=== PATIENT | female | born 1955 | race Caucasian/White ===

== ENCOUNTER 2023-02-24 09:19 | Outpatient (OUT) | payer MEDICARE, SELFPAY ==
--- NOTE | 2023-02-24 09:44 | CT_ITS ---
[address] [address] Patient Name: NAWAF MCKEON MRN: [facility]:[id number] date: 1955 Sex: F Assigned Patient Location: CT Current Patient Location: LAB Accession/Order Number: [id number] Exam Date: 02/24/2023 09:35 Report Date: 02/24/2023 10:28 At the request of: DOUGLAS FOOTE Procedure: CT lung screening low-dose EXAMINATION: CT lung screening low-dose HISTORY: History Of Tobacco Dependence Z87.891 COMPARISON: No relevant comparison available. TECHNIQUE: Axial, Coronal, and Sagittal images were created without the administration of IV contrast material. Dose reduction techniques were achieved by using automated exposure control and/or adjustment of mA and/or kV according to patient size and/or use of iterative reconstruction technique. FINDINGS: LUNGS: Calcified tracheobronchial tree. Scattered patchy and linear opacities likely atelectasis and/or scar. There is ill-defined solid and semisolid nodule in the anterior aspect of the right lower lobe axial image 122 measuring 7 x 5 mm. PLEURA: No mass, effusion, or pneumothorax. VASCULATURE: No abnormality. LINA: Calcified right hilar lymph nodes MEDIASTINUM: Small calcified subcarinal lymph nodes CARDIAC: No enlargement, pericardial thickening, or significant calcification. AORTA: No aortic aneurysm. Atherosclerosis. CHEST WALL: No mass or axillary adenopathy BONES: No bone lesion or fracture. LIMITED ABDOMEN: No suspicious findings. Limited images of the upper abdomen. OTHER: Negative. IMPRESSION: Mixed solid and semisolid 7 x 5 mm right lower lobe nodule. Six-month follow-up recommended to document stability LUNG SCREENING: Lung-RADS Category 3- Probably benign. Probably benign finding(s)- short term follow up suggested; includes nodules with a low likelihood of becoming a clinically active cancer. Six month LDCT. Electronically authenticated by: HAROON BURKETT Date: 02/24/2023 10:28
== END 2023-02-24 09:20 | disposition home or self-care (01) ==
LOC: CT 09:19
PROVIDERS: PCP Family Medicine; Visit Provider Family Medicine
DX: Z87.891 Personal history of nicotine dependence (principal); R91.1 Solitary pulmonary nodule
CPT/HCPCS: 71271

== ENCOUNTER 2023-02-24 10:10 | Outpatient (OUT) | payer MEDICARE, SELFPAY ==
[2023-02-24 10:29] LABS: Basophils Absolute Auto 0.1 10^3/uL (0.0-0.1); Basophils Percent Auto 0.6 % (0.2-2.0); Eosinophils Absolute Auto 0.4 10^3/uL (0.0-0.7); Eosinophils Percent Auto 4.7 % (0.9-7.0); Hematocrit 44.3 % (36.0-48.0); Hemoglobin 14.5 g/dL (12.0-16.0); Immature Granulocytes Abs Auto 0.03 10^3/uL (0.00-0.03); Immature Granulocytes Pct Auto 0.3 % (0.0-0.5); Lymphocytes Percent Auto 22.9 % (20.5-60.0); Mean Corpuscular HGB Conc 32.7 g/dL (29.9-35.2); Mean Corpuscular Volume 91.7 fL (81.0-99.0); Mean Platelet Volume 9.2 fL (9.5-13.5); Monocytes Absolute Auto 0.5 10^3/uL (0.3-0.8); Monocytes Percent Auto 5.4 % (1.7-12.0); Neutrophils Absolute Auto 5.8 10^3/uL (1.4-6.5); Neutrophils Percent Auto 66.1 % (43.0-75.0); Platelet Count 250 10^3/uL (150-450); Red Blood Count 4.83 10^6/uL (4.20-5.40); Red Cell Distribution Width 13.3 % (11.0-15.0); White Blood Count 8.7 10^3/uL (4.0-11.0)
[2023-02-24 11:14] LABS: Alanine Aminotransferase 23 U/L (14-59); Albumin Globulin Ratio 0.9; Albumin Level 3.7 g/dL (3.4-5.0); Alkaline Phosphatase 67 U/L (46-116); Anion Gap 11.2; Aspartate Amino Transferase 15 U/L (15-37); BUN Creatinine Ratio 15.8; Bilirubin Direct 0.1 mg/dL (0.0-0.2); Bilirubin Total 0.4 mg/dL (0.2-1.0); Calcium 9.5 mg/dL (8.5-10.1); Chloride 106 mmol/L (98-107); Chol HDL Ratio 3.7; Cholesterol 216 mg/dL (<=200); Estimated GFR (African America >60 (>=60); Estimated GFR (Non-African Ame >60 (>=60); Globulin 4.1 g/dL; Glucose 73 mg/dL (74-106); HDL Cholesterol 58 mg/dL (40-60); Potassium 4.2 mmol/L (3.5-5.1); Sodium 142 mmol/L (136-145); Total Protein 7.8 g/dL (6.4-8.2); Triglycerides 141 mg/dL (<=150); VLDL CHOLESTEROL 28.2 mg/dL
== END 2023-02-24 10:11 | disposition home or self-care (01) ==
LOC: LAB 10:13
PROVIDERS: PCP Family Medicine; Visit Provider Family Medicine
DX: Z13.220 Encounter for screening for lipoid disorders (principal); Z79.899 Other long term (current) drug therapy; M81.0 Age-related osteoporosis without current pathological fracture
CPT/HCPCS: 36415; 80048; 80061; 80076; 82306; 85025

== ENCOUNTER 2023-04-26 20:27 | Outpatient (REF) | payer MEDICARE, SELFPAY ==
[2023-05-03 09:11] LABS: Age Gdln ACOG Testing Note (.); HPV Aptima Negative (Negative); IGP, Aptima HPV, rfx 16/18,45 Note (.)
== END 2023-04-26 20:28 | disposition home or self-care (01) ==
LOC: LAB 20:27
PROVIDERS: PCP Family Medicine; Visit Provider Obstetrics & Gynecology
DX: Z12.4 Encounter for screening for malignant neoplasm of cervix (principal)
CPT/HCPCS: 87624; G0145

== ENCOUNTER 2023-05-11 09:52 | Outpatient (OUT) | payer MEDICARE, SELFPAY ==
--- NOTE | 2023-05-11 09:57 | MM_ITS ---
Patient: NAWAF MCKEON Exam Date: 05/11/2023 : 1955 Gender:F Ordering : DR Everett Boothe . Admission #: [id number] Family : DR Joe Gaspar . Order #: [id number] CLICK HERE TO VIEW EXAM RADIOLOGY REPORT PROCEDURE: MM TOMOSYNTHESIS SCREENING BI COMPARISON: MG MAMM SCREEN 3D GLADYS CAD, 05/10/2022. MG MAMM SCREEN 3D GLADYS CAD, 03/30/2021. MG MAMM SCREEN GLADYS W CAD, 09/14/2018. MG MAMM SCREEN GLADYS W CAD, 08/17/2010. INDICATIONS: Screening mammogram Z12.31 Calculator Name NCI Breast Cancer Risk Assessment Tool 5 Year Breast Cancer Risk 2.30% Lifetime Breast Cancer Risk 8.60% Personal Breast Cancer No Personal Ovarian Cancer No Treatments None Family Cancers Mother with thyroid cancer at age 65. LOCATION: [facility] BREAST COMPOSITION: Heterogeneously dense,which may obscure small masses. FINDINGS: DIAGNOSTIC CATEGORY 2--BENIGN FINDING: RIGHT BREAST: No significant suspicious finding. Scattered benign-appearing calcifications are present. No significant change has occurred. LEFT BREAST: No significant suspicious finding. Scattered benign-appearing calcifications are present. Scattered benign-appearing nodules are present. No significant change has occurred. RECOMMENDATIONS: ROUTINE MAMMOGRAM AND CLINICAL EVALUATION IN 12 MONTHS. PLEASE NOTE: A NORMAL MAMMOGRAM DOES NOT EXCLUDE THE POSSIBILITY OF BREAST CANCER. A CLINICALLY SUSPICIOUS PALPABLE LUMP SHOULD BE BIOPSIED. Dictated by: Al Salinas M.D. on 05/11/2023 at 15:46 Approved by: Al Salinas M.D. on 05/11/2023 at 15:48
--- NOTE | 2023-05-11 09:57 | XR_ITS ---
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 TECHNIQUE: Dual-energy X-ray absorptiometry (DXA) was performed. FINDINGS: SPINE ANALYSIS: Average bone mineral density is 1.104 g/cm2. T-score (standard deviation relative to young adult mean): -0.8 . +4.1% change since prior study. HIP ANALYSIS: Lowest bone mineral density is within the right femoral trochanter, 0.6-1 g/cm2. T-score (standard deviation relative to young adult mean): -2.0 . +11.4% change since prior study. XR/XR DEXA axial skeleton IMPRESSION: World Kenny Organization Classification: Osteopenia - Moderate Fracture Risk Electronically authenticated by: EDMUNDO FALLON Date: 05/11/2023 11:46
== END 2023-05-11 09:53 | disposition home or self-care (01) ==
LOC: MAMMO 09:52
PROVIDERS: PCP Family Medicine; Visit Provider Obstetrics & Gynecology
DX: Z12.31 Encounter for screening mammogram for malignant neoplasm of breast (principal); Z78.0 Asymptomatic menopausal state; M81.0 Age-related osteoporosis without current pathological fracture; Z80.8 Family history of malignant neoplasm of other organs or systems; M85.80 Other specified disorders of bone density and structure, unspecified site
CPT/HCPCS: 77063; 77067; 77080

== ENCOUNTER 2023-08-09 12:49 | Outpatient (OUT) | payer MEDICARE, SELFPAY ==
--- NOTE | 2023-08-09 12:52 | CT_ITS ---
The [address] [address] Patient Name: NAWAF MCKEON MRN: [facility]:[id number] date: 1955 Sex: F Assigned Patient Location: CT Current Patient Location: CT Accession/Order Number: [id number] Exam Date: 08/09/2023 13:07 Report Date: 08/09/2023 15:55 At the request of: DOUGLAS FOOTE Procedure: CT chest wo con EXAM: CT chest wo con HISTORY: Lung Nodule R91.1 COMPARISON: 02/24/2023. TECHNIQUE: Axial, Coronal, and Sagittal images were created without the administration of IV contrast material. Dose reduction techniques were achieved by using automated exposure control and/or adjustment of mA and/or kV according to patient size and/or use of iterative reconstruction technique. FINDINGS: LUNGS: Interval resolution in the focal nodular density in the anterior right lower lobe, compatible with infectious/inflammatory etiology. Mild cylindrical bronchiectasis is seen in the mid and lower lobes. There is moderate centrilobular emphysema. Scattered patchy and linear opacities likely atelectasis and/or scar. PLEURA: No mass, effusion, or pneumothorax. VASCULATURE: No abnormality. LINA: Calcified right hilar lymph nodes. No pathologic lymphadenopathy by size criteria. MEDIASTINUM: Small calcified subcarinal lymph nodes. No pathologic lymphadenopathy by size criteria. CARDIAC: No enlargement, pericardial thickening, or significant calcification. AORTA: No aortic aneurysm. Atherosclerosis. CHEST WALL: No mass or axillary adenopathy BONES: No bone lesion or fracture. UPPER ABDOMEN: Limited. CT/CT chest wo con IMPRESSION: Resolved right lower lobe nodule, infectious/inflammatory Electronically authenticated by: RENEE FRENCH Date: 08/09/2023 15:55
== END 2023-08-09 12:50 | disposition home or self-care (01) ==
LOC: CT 12:49
PROVIDERS: PCP Family Medicine; Visit Provider Family Medicine
DX: R91.1 Solitary pulmonary nodule (principal)
CPT/HCPCS: 71250

== ENCOUNTER 2023-11-10 12:55 | Outpatient (OUT) | payer MEDICARE, SELFPAY ==
--- NOTE | 2023-11-10 13:00 | RT_ITS ---
[facility] Test Date: 2023-11-10 Pat Name: NAWAF MCKEON Department: Room: - Gender: Female Repairer General: Ese [place] RRT : 1955 Requested By: [id number] Order Number: [id number] Reading MD: Alfonso Novoa Interpretive Statements Pulmonary function testing was completed according to ATS criteria. Findings were considered accurate and reproducible. Both pre- and post-bronchodilator values utilized for spirometry. Spirometry (based on pre-bronchodilator values): -FEV1/FVC: Reduced @ 61% -FEV1: Moderately reduced @ 75% -FVC: Normal @ 94% -There is a positive bronchodilator response in FEV1. Lung volumes by plethysmography (based on pre-bronchodilator values): -RV: Normal @ 106% -TLC: Normal @ 116% Diffusion capacity: -DLCO: Mild reduction @ 78% when corrected for Hb 14.4g/dL Flow-volume loop: -Mild-moderate obstructive pattern Impressions: -Spirometry suggests moderate obstruction. There is a positive bronchodilator response. Lung volumes are normal. There is a mildly reduced diffusion capacity. This pattern can be seen in asthma-COPD overlap or COPD with a bronchodilator response. Clinical correlation required. Electronically Signed On 11-14-2023 16:39:28 EDT by Alfonso Novoa
--- OUTSIDE RECORDS SUMMARY | 2023-11-10 13:02 | XMS_ITS | CCD ---
Author Name Unknown Address [facility] [employer] [facility] [address] [place] [address] Organization [facility] Care Team Providers Care Claims Associate Name Role Phone TAVIA ., DR FORD Attending Unavailable TAVIA ., DR FORD Consulting Unavailable TAVIA ., DR FORD Admitting Unavailable NADERER, DR JOE Ramirez Primary Care Unavailable AICHHOLZ, DENTAL HYGIENE INSTRUCTOR ANTONIO Attending Unavailable AICHHOLZ, DENTAL HYGIENE INSTRUCTOR ANTONIO Consulting Unavailable AICHHOLZ, CARLITOS ANTONIO Admitting Unavailable NADERER, DR JOE Ramirez Primary Care Unavailable Gigi Curry Consulting Unavailable ZIEBER, DR EDMUNDO Soto Consulting Unavailable NADERER, DR JOE Ramirez Primary Care Unavailable NADERER, DR JOE Ramirez Admitting Unavailable NADERER, DR JOE Ramirez Attending Unavailable NADERER, DR JOE Ramirez Consulting Unavailable NADERER, DR JOE Ramirez Primary Care Unavailable NADERER, DR JOE Ramirez Admitting Unavailable NADERER, DR JOE Ramirez Attending Unavailable NADERER, DR JOE Ramirez Consulting Unavailable TAVIA ., DR FORD Attending Unavailable TAVIA ., DR FORD Admitting Unavailable NADERER, DR JOE Ramirez Primary Care Unavailable SMITHTON, DR HAROON Catalan Consulting Unavailable TAVIA ., DR FORD Consulting Unavailable ZIEBER, DR EDMUNDO Soto Consulting Unavailable Joe Foote MD Primary Care Provider SHAIKH CHRISTIANSEN Attending Unavailable Medications Current Medications Medication Drug Class(es) Dates Sig (Normalized) Sig (Original) [id number] 200 actuat albuterol 0.09 mg/actuat metered dose inhaler (2 sources) beta2-Adrenergic Agonist Start: 01-31-2023 End: 10-26-2023 take 2 puff(s) by inhalation every six hours as needed for wheezing albuterol (PROVENTIL HFA;VENTOLIN HFA) 90 mcg/actuation inhaler Indications: Cough, unspecified type Inhale 2 puffs every 6 (six) hours as needed for wheezing or shortness of breath. 18 g 3 10/26/2023 Active calcium citrate 950 mg / cholecalciferol 250 unt oral tablet (1 source) Vitamin D take 1 tablet by mouth once daily as needed calcium citrate-vitamin D3 (CITRACAL PETITES) 200 mg calcium -250 units tablet Take 1 tablet by mouth daily as needed. 0 Active dicyclomine hydrochloride 20 mg oral tablet (1 source) Anticholinergic Start: 08-17-2021 take 1 tablet by mouth every six hours as needed dicyclomine (BENTYL) 20 mg tablet Take 1 tablet (20 mg total) by mouth every 6 (six) hours as needed (abdominal pain). 90 tablet 3 08/17/2021 Active esomeprazole 20 mg delayed release oral capsule (1 source) Proton Pump Inhibitor Start: 01-13-2023 take 1 capsule by mouth once daily before breakfast esomeprazole (NexIUM) 20 mg capsule Take 1 capsule (20 mg total) by mouth every morning before breakfast. 180 capsule 1 01/13/2023 Active melatonin 10 mg oral tablet (1 source) take 1 tablet by mouth once daily as needed melatonin 10 mg tablet Take 10 mg by mouth nightly as needed. 0 Active ondansetron 4 mg disintegrating oral tablet (1 source) Serotonin-3 Receptor Antagonist Start: 12-17-2020 take 1 tablet by mouth every eight hours as needed for nausea and vomiting ondansetron ODT (ZOFRAN ODT) 4 mg disintegrating tablet Dissolve 1 tablet (4 mg total) on tongue every 8 (eight) hours as needed for nausea or vomiting. 20 tablet 0 12/17/2020 Active Problems Active Problems Problem Classification Problem Date Documented Da te Episodic/Chronic Osteoporosis (1 source) Age-related osteoporosis without current pathological fracture; Translations: [AGE-REL OSTEOPOR W/O CURR PATH FX] Onset: 05-14-2022 Chronic Other lower respiratory disease (1 source) Cough; Translations: [Cough, unspecified type] 10-26-2023 Episodic Unclassified (3 sources) COUGH, UNSPECIFIED; Translations: [COUGH, UNSPECIFIED] Onset: 12-21-2022 Past or Other Problems Problem Classification Problem Date Documented Date Episodic/Chronic Immunizations and screening for infectious disease (1 source) Encounter for screening for human papillomavirus (HPV); Translations: [ENC SCREENING HUMAN PAPILLOMAVIRUS] Onset: 04-19-2022 Episodic Other lower respiratory disease (4 sources) Shortness of breath; Translations: [SHORTNESS OF BREATH] Onset: 06-08-2022 Episodic Other screening for suspected conditions (not mental disorders or infectious disease) (8 sources) Encounter for screening mammogram for malignant neoplasm of breast; Translations: [Encounter for screening for malignant neoplasm of cervix] Onset: 04-18-2022 Episodic Residual codes; unclassified (1 source) Asymptomatic menopausal state; Translations: [ASYMPTOMATIC MENOPAUSAL STATE] Onset: 05-14-2022 Episodic Residual codes; unclassified (1 source) Family history of malignant neoplasm of other organs or systems; Translations: [FAM HX MALIG NEOPLASM OTH ORGN/SYS] Onset: 05-14-2022 Episodic Unclassified (1 source) COUGH, UNSPECIFIED; Translations: [COUGH, UNSPECIFIED] Onset: 12-01-2022 Results Test Name Value Interpretation Reference Range Facility XR CHEST 2 Von 12-01-2022 XR CHEST 2 V EXAM: XR CHEST 2 V HISTORY: Cough COMPARISON: 06/08/2022 TECHNIQUE: PA and lateral views of the chest. FINDINGS: The cardiomediastinal silhouette is normal. No focal consolidation is identified. There is no pneumothorax. No pleural effusion is noted. The osseous structures are intact. IMPRESSION: No acute cardiopulmonary process. Electronically authenticated by: GIGI CURRY Date: 2022-12-01 12:17 Normal [facility] XR CHEST 2 Von 06-08-2022 XR CHEST 2 V EXAMINATION: XR CHES T 2 V HISTORY: Dyspnea , acute cough, chest congestion COMPARISON: No relevant comparison available. FINDINGS: LUNGS: Well expanded lungs with trace amount stranding within lung bases. VASCULATURE: No increased pulmonary vasculature. PLEURA: No pneumothorax, effusion, or pleural thickening. CARDIAC: No cardiomegaly or cardiac silhouette abnormality. MEDIASTINUM: No visible mass or adenopathy. BONES: No fracture or visible bone lesion. OTHER: Negative. IMPRESSION: 1. Trace amount of bibasilar atelectasis versus infiltrates. Electronically authenticated by: EDMUNDO FALLON Date: 2022-06-08 12:[address] [facility] CBC AUTO DIFFon 09-27-2022 BASO # 0.0 103/ul Normal 0.0-0.1 [facility] Comment on above: Performed By: #### L IVER, LIPID, TSH, BMP #### [facility] [address] [place] [address] Dr. Minesh Wallace Basophils/100 WBC (Bld) 0.7 % Normal 0.2-2.0 [facility] Comment on above: Performed By: #### L IVER, LIPID, TSH, BMP #### [facility] [address] [place] [address] Dr. Minesh Wallace EO # 0.3 103/ul Normal 0.0-0.7 [facility] Comment on above: Performed By: #### L IVER, LIPID, TSH, BMP #### [facility] [address] [place] [address] Dr. Minesh Wallace Eosinophils/100 WBC (Bld) 4.2 % Normal 0.9-7.[address] [facility] Comment on above: Performed By: #### L IVER, LIPID, TSH, BMP #### [facility] [address] [place] [address] Dr. Minesh Wallace Erythrocyte distribution width (RBC) [Ratio] 13.2 % Normal 11.0-15.[address] [facility] Comment on above: Performed By: #### L IVER, LIPID, TSH, BMP #### [facility] [address] [place] [address] Dr. Minesh Wallace Hematocrit (Bld) [Volume fraction] 43.2 % Normal 36.0-48.[address] [facility] Comment on above: Performed By: #### L IVER, LIPID, TSH, BMP #### [facility] [address] [place] [address] Dr. Minesh Wallace Hemoglobin (Bld) [Mass/Vol] 14.0 g/dL Normal 12.0-16.[address] [facility] Comment on above: Performed By: #### L IVER, LIPID, TSH, BMP #### [facility] [address] [place] [address] Dr. Minesh Wallace IG # 0.01 10e3/ul Normal 0.00-0.[address] [facility] Comment on above: Performed By: #### L IVER, LIPID, TSH, BMP #### [facility] [address] [place] [address] Dr. Minesh Wallace IG % 0.2 % Normal 0.0-0.[address] [facility] Comment on above: Performed By: #### L IVER, LIPID, TSH, BMP #### [facility] [address] [place] [address] Dr. Minesh Wallace LYMPH # 2.4 103/ul Normal 1.2-3.8 [facility] Comment on above: Performed By: #### L IVER, LIPID, TSH, BMP #### [facility] [address] [place] [address] Dr. Minesh Wallace Lymphocytes/100 WBC (Bld) 39.7 % Normal 20.5-60.[address] [facility] Comment on above: Performed By: #### L IVER, LIPID, TSH, BMP #### [facility] [address] [place] [address] Dr. Minesh Wallace MANUAL DIFF REQ NO Normal [facility] Comment on above: Performed By: #### L IVER, LIPID, TSH, BMP #### [facility] [address] [place] [address] Dr. Minesh Wallace MCH (RBC) [Entitic mass] 29.9 pg Normal 26.7-34.[address] [facility] Comment on above: Performed By: #### L IVER, LIPID, TSH, BMP #### [facility] [address] [place] [address] Dr. Minesh Wallace MCHC (RBC) [Mass/Vol] 32.4 g/dL Normal 29.9-35.2 [facility] Comment on above: Performed By: #### L IVER, LIPID, TSH, BMP #### [facility] [address] [place] [address] Dr. Minesh Wallace MCV (RBC) [Entitic vol] 92.1 fL Normal 81.0-99.[address] [facility] Comment on above: Performed By: #### L IVER, LIPID, TSH, BMP #### [facility] [address] [place] [address] Dr. Minesh Wallace MONO # 0.4 103/ul Normal 0.3-0.[address] [facility] Comment on above: Performed By: #### L IVER, LIPID, TSH, BMP #### [facility] [address] [place] [address] Dr. Minesh Wallace Monocytes/100 WBC (Bld) 6.9 % Normal 1.7-12.[address] [facility] Comment on above: Performed By: #### L IVER, LIPID, TSH, BMP #### [facility] [address] [place] [address] Dr. Minesh Wallace NEUT # 2.9 103/ul Normal 1.4-6.[address] [facility] Comment on above: Performed By: #### L IVER, LIPID, TSH, BMP #### [facility] [address] [place] [address] Dr. Minesh Wallace Neutrophils/100 WBC (Bld) 48.3 % Normal 43.0-75.0 [facility] Comment on above: Performed By: #### L IVER, LIPID, TSH, BMP #### [facility] [address] [place] [address] Dr. Minesh Wallace Platelet mean volume (Bld) [Entitic vol] 10.2 fL Normal 9.5-13.[address] [facility] Comment on above: Performed By: #### L IVER, LIPID, TSH, BMP #### [facility] [address] [place] [address] Dr. Minesh Wallace PLT 294 103/ul Normal 150-450 [facility] Comment on above: Performed By: #### L IVER, LIPID, TSH, BMP #### [facility] [address] [place] [address] Dr. Minesh Wallace RBC 4.69 106/ul Normal 4.20-5.[address] [facility] Comment on above: Performed By: #### L IVER, LIPID, TSH, BMP #### [facility] [address] [place] [address] Dr. Minesh Wallace WBC 5.9 103/ul Normal 4.0-11.[address] [facility] Comment on above: Performed By: #### L IVER, LIPID, TSH, BMP #### [facility] [address] [address] [address] Minesh Wallace GLYCOHEMOGLOBIN A1Con 2021 ADA RECOMMENDATION SEE BELOW Normal [facility] Comment on above: Result Comment: ADA RECOMMENDED LIMIT 4.0 - 6.0 ADA THERAPEUTIC TARGET < 7.0 ACTION SUGGESTED > 7.0 Performed By: #### A 1C #### [facility] [address] [address] [address] Minesh Wallace Glucose [Mass/Vol] 111 mg/dL Normal [facility] Comment on above: Performed By: #### A 1C #### [facility] [address] [place] [address] Dr. Minesh Wallace HbA1c (Bld) [Mass fraction] 5.5 % Normal 4.5-6.[address] [facility] Comment on above: Performed By: #### A 1C #### [facility] [address] [place] [address] Dr. Minesh Wallace LIPID PROFILEon 05-24-2022 CHOL-HDL RATIO NORM SEE BELOW Normal [facility] Comment on above: Result Comment: 3.3 - 4.4 LOW RISK 4.4 - 7.1 AVERAGE RISK 7.1 - 11.0 MODERATE RISK >11.0 HIGH RISK Performed By: #### L IVER, LIPID, TSH, BMP #### [facility] [address] [place] [address] Dr. Minesh Wallace Cholesterol [Mass/Vol] 189 mg/dL Normal <=[address] [facility] Comment on above: Performed By: #### L IVER, LIPID, TSH, BMP #### [facility] [address] [address] [address] Minesh Wallace Cholesterol in HDL [Mass/Vol] 55 mg/dL Normal 40-[address] [facility] Comment on above: Performed By: #### L IVER, LIPID, TSH, BMP #### [facility] [address] [address] [address] Minesh Wallace Cholesterol in LDL [Mass/Vol] 112.2 mg/dL Normal [facility] Comment on above: Performed By: #### L IVER, LIPID, TSH, BMP #### [facility] [address] [place] [address] Dr. Minesh Wallace Cholesterol.total/Ch olesterol in HDL [Mass ratio] 3.4 {ratio} Normal [facility] Comment on above: Performed By: #### L IVER, LIPID, TSH, BMP #### [facility] [address] [address] [address] Minesh Wallace HDL NORMAL > or = 60 mg/dl - LO W CARDIOVASCULAR RISK <40 mg/dl - HIGH CARDIOVASCULAR RISK Normal [facility] Comment on above: Performed By: #### L IVER, LIPID, TSH, BMP #### [facility] [address] [place] [address] Dr. Minesh Wallace LDL CALC NORMAL SEE BELOW Normal [facility] Comment on above: Result Comment: <100 mg/dl OPTIMAL 100 - 129 mg/dl NEAR OR ABOVE OPTIMAL 130 - 159 mg/dl BORDERLINE HIGH 160 - 189 mg/dl HIGH >190 mg/dl VERY HIGH Performed By: #### L IVER, LIPID, TSH, BMP #### [facility] [address] [place] [address] Dr. Minesh Wallace Triglyceride [Mass/Vol] 109 mg/dL Normal <=[address] [facility] Comment on above: Performed By: #### L IVER, LIPID, TSH, BMP #### [facility] [address] [place] [address] Dr. Minesh Wallace VLDL CALC 21.8 mg/dL Normal [facility] Comment on above: Performed By: #### L IVER, LIPID, TSH, BMP #### [facility] [address] [address] [address] Minesh Wallace LIVER PROFILEon 05-24-2022 Albumin [Mass/Vol] 3.8 g/dL Normal 3.4-5.0 [facility] Comment on above: Performed By: #### L IVER, LIPID, TSH, BMP #### [facility] [address] [address] [address] Minesh Wallace Albumin/Globulin [Mass ratio] 1.1 {ratio} Normal [facility] Comment on above: Performed By: #### L IVER, LIPID, TSH, BMP #### [facility] [address] [address] [address] Minesh Wallace ALP [Catalytic activity/Vol] 86 U/L Normal 46-116 [facility] Comment on above: Performed By: #### L IVER, LIPID, TSH, BMP #### [facility] [address] [address] [address] Minesh Wallace ALT [Catalytic activity/Vol] 24 U/L Normal 14-[address] [facility] Comment on above: Performed By: #### L IVER, LIPID, TSH, BMP #### [facility] [address] [place] [address] Dr. Minesh Wallace AST [Catalytic activity/Vol] 15 U/L Normal 15-[address] [facility] Comment on above: Performed By: #### L IVER, LIPID, TSH, BMP #### [facility] [address] [address] [address] Minesh Wallace BILI, CONJUGATED 0.1 mg/dL Normal 0.0-0.2 [facility] Comment on above: Performed By: #### L IVER, LIPID, TSH, BMP #### [facility] [address] [address] [address] Minesh Wallace Bilirubin [Mass/Vol] 0.2 mg/dL Normal 0.2-1.[address] [facility] Comment on above: Performed By: #### L IVER, LIPID, TSH, BMP #### [facility] [address] [address] [address] Minesh Wallace Globulin (S) [Mass/Vol] 3.4 g/dL Normal [facility] Comment on above: Performed By: #### L IVER, LIPID, TSH, BMP #### [facility] [address] [address] [address] Minesh Wallace Protein [Mass/Vol] 7.2 g/dL Normal 6.4-8.2 [facility] Comment on above: Performed By: #### L IVER, LIPID, TSH, BMP #### [facility] [address] [place] [address] Dr. Minesh Wallace PROF CHEM 8 (BAS METB)on Anion gap [Moles/Vol] 12.5 mmol/L Normal [facility] Comment on above: Performed By: #### L IVER, LIPID, TSH, BMP #### [facility] [address] [place] [address] Dr. Minesh Wallace Calcium [Mass/Vol] 9.3 mg/dL Normal 8.5-10.1 [facility] Comment on above: Performed By: #### L IVER, LIPID, TSH, BMP #### [facility] [address] [place] [address] Dr. Minesh Wallace Chloride [Moles/Vol] 104 mmol/L Normal 98-107 [facility] Comment on above: Performed By: #### L IVER, LIPID, TSH, BMP #### [facility] [address] [place] [address] Dr. Minesh Wallace CO2 [Moles/Vol] 28.9 mmol/L Normal 21.0-32.0 [facility] Comment on above: Performed By: #### L IVER, LIPID, TSH, BMP #### [facility] [address] [place] [address] Dr. Minesh Wallace Creatinine [Mass/Vol] 0.75 mg/dL Normal 0.55-1.02 [facility] Comment on above: Performed By: #### L IVER, LIPID, TSH, BMP #### [facility] [address] [place] [address] Dr. Minesh Wallace EGFR-AF ANGUILLAN >60 Normal >=60 [facility] Comment on above: Performed By: #### L IVER, LIPID, TSH, BMP #### [facility] [address] [place] [address] Dr. Minesh Wallace EGFR-NON AF ANGUILLAN >60 Normal >=60 [facility] Comment on above: Performed By: #### L IVER, LIPID, TSH, BMP #### [facility] [address] [address] [address] Minesh Wallace Glucose [Mass/Vol] 85 mg/dL Normal 74-106 [facility] Comment on above: Performed By: #### L IVER, LIPID, TSH, BMP #### [facility] [address] [place] [address] Dr. Minesh Wallace Potassium [Moles/Vol] 4.4 mmol/L Normal 3.5-5.[address] [facility] Comment on above: Performed By: #### L IVER, LIPID, TSH, BMP #### [facility] [address] [place] [address] Dr. Minesh Wallace Sodium [Moles/Vol] 141 mmol/L Normal 136-145 [facility] Comment on above: Performed By: #### L IVER, LIPID, TSH, BMP #### [facility] [address] [place] [address] Dr. Minesh Wallace Urea nitrogen [Mass/Vol] 15.0 mg/dL Normal 7.0-18.[address] [facility] Comment on above: Performed By: #### L IVER, LIPID, TSH, BMP #### [facility] [address] [place] [address] Dr. Minesh Wallace Urea nitrogen/Creatinine [Mass ratio] 20.0 mg/mg Normal [facility] Comment on above: Performed By: #### L IVER, LIPID, TSH, BMP #### [facility] [address] [place] [address] Dr. Minesh Wallace TSHon 05-24-2022 TSH 1.204 uIU/mL Normal 0.358-3.740 [facility] Comment on above: Performed By: #### L IVER, LIPID, TSH, BMP #### [facility] [address] [place] [address] Dr. Minesh Wallace MG MAMM SCREEN 3D GLADYS CADon 05-10-2022 MG MAMM SCREEN 3D GLADYS CAD Patient: DEANNA MCKEON Exam Date: 05/10/2022 : 1955 Gender:F Ordering : DR LOGAN SQUIRES . Admission #: [id number] Family : Order #: [id number] CLICK HERE TO VIEW EXAM RADIOLOGY REPORT PROCEDURE: MAMMOGRAM SCREENING 3D BILATERAL CAD COMPARISON: MG MAMM SCREEN 3D GLADYS CAD, 03/30/2021. MG MAMM SCREEN GLADYS W CAD, 09/14/2018. INDICATIONS: Screening mammography Calculator Name NCI Breast Cancer Risk Assessment Tool 5 Year Breast Cancer Risk 2.20% Lifetime Breast Cancer Risk 8.90% Personal Breast Cancer No Personal Ovarian Cancer No Treatments None Family Cancers Mother with thyroid cancer at age 65. LOCATION: [facility] BREAST COMPOSITION: Heterogeneously dense,which may obscure small masses. FINDINGS: DIAGNOSTIC CATEGORY 2--BENIGN FINDING. NO CHANGE FROM COMPARISON. Scattered benign-appearing nodules are present. Scattered benign-appearing calcifications are present. Scattered benign-appearing lymph nodes are present. RIGHT BREAST: No significant suspicious finding. LEFT BREAST: No significant suspicious finding. RECOMMENDATIONS: ROUTINE MAMMOGRAM AND CLINICAL EVALUATION IN 12 MONTHS. PLEASE NOTE: A NORMAL MAMMOGRAM DOES NOT EXCLUDE THE POSSIBILITY OF BREAST CANCER. A CLINICALLY SUSPICIOUS PALPABLE LUMP SHOULD BE BIOPSIED. Dictated by: Haroon Magallanes MD on 05/11/2022 at 07:56 Approved by: Haroon Magallanes MD on 05/11/2022 at 07:[address] [facility] XR DEXA BONE DENSITYon 05-10 XR DEXA BONE DENSITY EXAMINATION: XR DEX A BONE DENSITY, 05/10/2022 3:27 PM EDT HISTORY: Menopause present COMPARISON: None. TECHNIQUE: Dual-energy X-ray absorptiometry (DEXA) bone density study performed for the axial skeleton. FINDINGS: SPINE ANALYSIS: Average bone mineral density is 1.060 g/cm2. T-score (standard deviation relative to young adult mean): -1.2 . HIP ANALYSIS: Lowest bone mineral density is within the right femoral trochanter, 0.549 g/cm2. T-score (standard deviation relative to young adult mean): -2.6 . IMPRESSION: World [employer] Organization Classification: Osteoporosis - High Fracture Risk Electronically authenticated by: EDMUNDO FALLON Date: 2022-05-10 15:[address] [facility] PAP ACOG PANEL 2: 30 to 65on 04-24-2022 . . Normal [facility] Comment on above: Result Comment: Perf ormed at: WB Performed By: #### [id number] #### [facility] [address] [id number] Dr. Minesh Wallace Age Gdln ACOG Testing 30-[address] [facility] Comment on above: Performed By: #### [id number] #### [facility] [address] [address] [address] Minesh Wallace DIAGNOSIS: Comment Normal [facility] Comment on above: Result Comment: NEGA TIVE FOR INTRAEPITHELIAL LESION OR MALIGNANCY. CELLULAR CHANGES ASSOCIATED WITH ATROPHY ARE PRESENT. THIS SPECIMEN WAS RESCREENED PART OF OUR DIRECTOR HARDWARE PROGRAM. Performed at: WB Performed By: #### [id number] #### [facility] [address] [place] [address] Dr. Minesh Wallace HPV Aptima Negative Normal Negative [facility] Comment on above: Result Comment: This nucleic acid amplification test detects fourteen high-risk HPV types (16,18,31,33,35,39,45,51,52,56,58,59,66,68) without differentiation. Performed at: =G Performed By: #### [id number] #### [facility] [address] [place] [address] Dr. Minesh Wallace Methodology: Comment Normal [facility] Comment on above: Result Comment: This liquid based ThinPrep(R) pap test was screened with the use of an image guided system. Performed at: WB Performed By: #### [id number] #### [facility] [address] [place] [address] Dr. Minesh Wallace Note: Comment Normal [facility] Comment on above: Result Comment: The Pap smear is a screening test designed to aid in the detection of premalignant and malignant conditions of the uterine cervix. It is not a diagnostic procedure and should not be used as the sole means of detecting cervical cancer. Both false-positive and false-negative reports do occur. . Performed at: WB Performed By: #### [id number] #### [facility] [address] [place] [address] Dr. Minesh Wallace Performed by: Comment Normal [facility] Comment on above: Result Comment: Lorraine Cazares, Hatch Boss Performed at: WB Performed By: #### [id number] #### [facility] [address] [address] [address] Minesh Wallace QC reviewed by: Comment Normal [facility] Comment on above: Result Comment: Arsalan Dean, Hatch Boss Performed at: WB Performed By: #### [id number] #### [facility] [address] [address] [address] Minesh Wallace Specimen adequacy: Comment Normal [facility] Comment on above: Result Comment: Sati sfactory for evaluation. Endocervical and/or squamous metaplastic cells (endocervical component) are present. Performed at: WB Performed By: #### [id number] #### [facility] [address] [place] [address] Dr. Minesh Wallace Urine Cultureon 02-19-2021 Bacteria identified Cx Nom (U) ORGANISM: Escherichia coli (O:ESCCOL) [place] Count >100,000 Aerobic DUYEN Charge (NUC86) --- SUSCEPTIBILITY -- ORGANISM: O:ESCCOL ANTIBIOTIC INTERPRETATION DUYEN Amikacin S <16 Ampicillin S <8 Ampicillin/Sulbactam S <8/4 Aztreonam S <4 Cefazolin S <2 Cefepime S <2 Ceftazidime S <1 Ceftazidime/Avibactam S <8 Ceftriaxone S <1 Ciprofloxacin S <1 Ertapenem S <0.5 Gentamicin S <4 Levofloxacin S <2 Meropenem S <1 Nitrofurantoin S <32 Piperacillin/Tazobacta m S <16 Tetracycline S <4 Tigecycline S <2 Tobramycin S <4 Trimethoprim/Sulfameth oxazole S <2/38 S = SUSCEPTIBLE I = INTERMEDIATE R = RESISTANT BLANK = DATA NOT AVAILABLE, OR DRUG NOT ADVISABLE OR TESTED R* = RESISTANCE DUE TO EXTENDED SPECTRUM BETA-LACTAMASES ESBL = EXTENDED SPECTRUM BETA-LACTAMASE TFG = THYMIDINE-DEPENDENT STRAIN KIEL = BETA-LACTAMASE POSITIVE IB = INDUCIBLE BETA-LACTAMASE. APPEARS IN PLACE OF 'S' WITH SPECIES KNOWN TO POSSESS INDUCIBLE BETA-LACTAMASES. POTENTIALLY THEY MAY BECOME RESISTANT TO ALL B-LACTAM DRUGS. PERFORMED BY: [place] [address] PATHOLOGIST PERSONAL COMPUTER SPECIALIST ALYSSIA BURGOS M.D. Normal [facility] Comment on above: Performed By: #### C UU #### [address] Encounters Encounter Date Encounter Type Care Provider Facility Start: 10-26-2023 Orders Only Brigitte Sanford se [employer] Work Phone: [facility] Comment on above: Cough, unspecified t ype Start: 10-25-2023 End: 10-25-2023 ambulatory SHAIKH KULDIP Not Available Start: 12-01-2022 End: 12-02-2022 ambulatory CARLITOS MARTINEZ Facility:[facility] Start: 06-08-2022 End: 06-09-[address] EDMUNDO FALLON Facility:[facility] Start: 05-26-2022 Encounter for genera l adult medical examination without abnormal findings DR JOE FOOTE [facility] Start: 05-24-2022 End: 05-25-[address] JOE FOOTE Facility:[facility] Start: 05-24-2022 End: 05-25-2022 Encounter for general adult medical examination without abnormal findings DR JOE FOOTE Facility:[facility] Start: 05-10-2022 End: 05-11-[address] LOGAN SQUIRES . Facility:[facility] Start: 04-18-2022 End: 04-18-[address] LOGAN SQUIRES . Facility:[facility] Plan of Treatment Date Care Activity Detail Author Start: 04-28-2023 Influenza vaccination Influenza Vaccine [facility] Start: 2022 Fall Risk Screening Fall Risk Screening [facility] Start: 12-21-2007 Administration of varicella zoster vaccine Zoster (Shingles) Vaccine (1 of 2) [facility] Start: 1976 DTaP,Tdap and Td Vaccines (1 - Tdap) DTaP,Tdap and Td Vaccines (1 - Tdap) [facility] Start: 12-21-1975 Adult BMI Screening Adult BMI Screening [facility] Start: 1969 Depression Screening Depression Screening [facility] Start: 1969 Tobacco Screening Tobacco Screening [facility] Payers Date Payer Category Payer Unknown JOSE MARROQUIN (PPO) [id number] 2017-Present [phone] [address] [place] [address] [id number] 1959 Unknown [id number] 1959 Unknown [id number] 1957 Unknown [id number] 1957 Unknown [id number] 1957 Unknown [id number] 1957 Unknown [id number] 1957 Unknown [id number] 1957 Unknown [id number] Social History Date Type Detail Facility [facility]: [facility]06[facility] End: 08-06-2005 History of tobacco use Current smoker [facility] End: 08-06-2005 History of tobacco use Cigarette Smoker [facility] Start: 08-06-2019 End: 10-07-2020 Cigarettes smoked current (pack per day) - Reported 1 [facility] Start: 08-06-2019 Tobacco use and exposure Smokeless tobacco non-user [facility] Start: 12-18-2020 Alcohol intake Current drinke r of alcohol (finding) [facility] Start: 10-07-2020 End: 12-18-2020 Tobacco use panel [facility] Start: 08-06-2019 Alcohol Comment a couple times a [facility] Start: 1955 Sex Assigned At Not on file P [facility] Evaluation note Note Date & Type Note Facility Evaluation note Diagnosis Cough, unspecified type [facility] Inst[facility] Note Date & Type Note Facility Instructions Not on filedocumented in this en counter [facility] Summary Purpose Family History No Family History Records FoundNo Family History Records FoundNo Family History Records Found Advance Directives No Advanced Directives Records FoundNo Advanced Directives Records FoundNo Advanced Directives Records Found Additional Source Comments INFORMATION SOURCE (unrecogn ized section and content) DATE CREATED AUTHOR 03/03/2021 [facility] DATE CREATED AUTHOR AUTHOR'S ORGANIZ ATION 12/23/2022 [facility] DATE CREATED AUTHOR AUTHOR'S ORGANIZ ATION 10/28/2023 [facility] [employer] Care Teams (unrecognized sec tion and content) Claims Associate Relationship Specialty Start Date End Date Joe Foote MD [address] [place] [address] PCP - General Family Medicine 08/06/19 FOR RECORDS PERTAINING TO PATIENTS WHO ARE OR HAVE BEEN ENROLLED IN A CHEMICAL DEPENDENCY/SUBSTANCEABUSE PROGRAM, SOME INFORMATION MAY BE OMITTED. This clinical summary was aggregated from multiple sources. Caution should be exercised in using it in the provision of clinical care. This summary normalizes information from multiple sources, and as a consequence, information in this document may materially change the coding, format and clinical context of patient data. In addition, data may be omitted in some cases. CLINICAL DECISIONS SHOULD BE BASED ON THE PRIMARY CLINICAL RECORDS. [employer] provides no warranty or guarantee of the accuracy or completeness of information in this document.
[2023-11-10 13:12] LABS: Hemoglobin 14.4 g/dL (12.0-16.0)
[2023-11-10] MEDS: ALBUTEROL SULFATE 2.5 MG/3 ML VIAL NEB IH (13:56)
== END 2023-11-10 12:56 | disposition home or self-care (01) ==
LOC: CARD 12:55
PROVIDERS: PCP Family Medicine; Visit Provider Internal Medicine
DX: J43.2 Centrilobular emphysema (principal)
CPT/HCPCS: 36415; 85018; 94060; 94726; 94729

== ENCOUNTER 2024-05-06 20:22 | Outpatient (REF) | payer MEDICARE, SELFPAY ==
--- OUTSIDE RECORDS SUMMARY | 2024-05-06 20:25 | XMS_ITS | CCD ---
Author Organization [facility] Care Team Providers Care Pl Sql Developer Name Role Phone TAVIA ., DR FORD Attending Unavailable TAVIA ., DR FORD Consulting Unavailable TAVIA ., DR FORD Admitting Unavailable NADERER, DR JOE Ramirez Primary Care Unavailable AICHHOLZ, CARLITOS ALVAREZ Attending Unavailable AICHHOLZ, CARLITOS ALVAREZ Consulting Unavailable AICHHOLZ, CARLITOS MORSEA Admitting Unavailable NADERER, DR JOE Ramirez Primary Care Unavailable Jazmín, Gigi Consulting Unavailable ZIEBER, DR EDMUNDO Soto Consulting [...] NADERER, DR JOE Ramirez Primary Care Unavailable [place], DR HAROON Catalan Consulting Unavailable TAVIA ., DR FORD Consulting Unavailable ZIEBER, DR EDMUNDO Soto Consulting Unavailable Myronr Joe TOSCANO Primary Care Provider [phone] SHAIKH CHRISTIANSEN Attending Unavailable Medications Current Medications Medication Drug Class(es) Dates Sig (Normalized) Sig (Original) [id number] 200 actuat albuterol 0.09 mg/actuat metered dose [...] GIGI CURRY Date: 2022-12-01 12:17 Normal [facility] XR CHEST 2 Von 06-08-2022 XR CHEST [...] [place] Date: 2022-06-08 12:38 Normal [facility] CBC AUTO DIFFon 05-24-2022 BASO # 0.0 103/ul Normal 0.0-0.1 [facility] Comment on above: Performed By: #### L IVER, LIPID, TSH, BMP #### [facility] [address] [place] [address] Dr. Minesh Wallace Basophils/100 WBC (Bld) 0.7 % Normal 0.2-2.0 [facility] Comment on above: Performed By: #### L IVER, LIPID, TSH, BMP #### [facility] [address] [place] [address] Dr. Minesh Wallace EO # 0.3 103/ul Normal 0.0-0.7 [facility] Comment on above: Performed By: #### L IVER, LIPID, TSH, BMP #### [facility] [address] [place] [address] Dr. Minesh Wallace Eosinophils/100 WBC (Bld) 4.2 % Normal 0.9-7.0 [facility] Comment on above: Performed By: #### L IVER, LIPID, TSH, BMP #### [facility] [address] [place] [address] Dr. Minesh Wallace Erythrocyte distribution width (RBC) [Ratio] 13.2 % Normal 11.0-15.0 [facility] Comment on above: Performed By: #### L IVER, LIPID, TSH, BMP #### [facility] [address] [place] [address] Dr. Minesh Wallace Hematocrit (Bld) [Volume fraction] 43.2 % Normal 36.0-48.0 [facility] Comment on above: Performed By: #### L IVER, LIPID, TSH, BMP #### [facility] [address] [place] [address] Dr. Minesh Wallace Hemoglobin (Bld) [Mass/Vol] 14.0 g/dL Normal 12.0-16.0 [facility] Comment on above: Performed By: #### L IVER, LIPID, TSH, BMP #### [facility] [address] [place] [address] Dr. Minesh Wallace IG # 0.01 10e3/ul Normal 0.00-0.03 [facility] Comment on above: Performed By: #### L IVER, LIPID, TSH, BMP #### [facility] [address] [place] [address] Dr. Minesh Wallace IG % 0.2 % Normal 0.0-0.5 [facility] Comment on above: Performed By: #### L IVER, LIPID, TSH, BMP #### [facility] [address] [place] [address] Dr. Minesh Wallace LYMPH # 2.4 103/ul Normal 1.2-3.8 [facility] Comment on above: Performed By: #### L IVER, LIPID, TSH, BMP #### [facility] [address] [place] [address] Dr. Minesh Wallace Lymphocytes/100 WBC (Bld) 39.7 % Normal 20.5-60.0 [facility] Comment on above: Performed By: #### L IVER, LIPID, TSH, BMP #### [facility] [address] [place] [address] Dr. Minesh Wallace MANUAL DIFF REQ NO Normal [facility] Comment on above: Performed By: #### L IVER, LIPID, TSH, BMP #### [facility] [address] [place] [address] Dr. Minesh Wallace MCH (RBC) [Entitic mass] 29.9 pg Normal 26.7-34.0 [facility] Comment on above: Performed By: #### L IVER, LIPID, TSH, BMP #### [facility] [address] [place] [address] Dr. Minesh Wallace MCHC (RBC) [Mass/Vol] 32.4 g/dL Normal 29.9-35.2 [facility] Comment on above: Performed By: #### L IVER, LIPID, TSH, BMP #### [facility] [address] [place] [address] Dr. Minesh Wallace MCV (RBC) [Entitic vol] 92.1 fL Normal 81.0-99.0 [facility] Comment on above: Performed By: #### L IVER, LIPID, TSH, BMP #### [facility] [address] [place] [address] Dr. Minesh Wallace MONO # 0.4 103/ul Normal 0.3-0.8 [facility] Comment on above: Performed By: #### L IVER, LIPID, TSH, BMP #### [facility] [address] [place] [address] Dr. Minesh Wallace Monocytes/100 WBC (Bld) 6.9 % Normal 1.7-12.0 [facility] Comment on above: Performed By: #### L IVER, LIPID, TSH, BMP #### [facility] [address] [place] [address] Dr. Minesh Wallace NEUT # 2.9 103/ul Normal 1.4-6.5 [facility] Comment on above: Performed By: #### L IVER, LIPID, TSH, BMP #### [facility] [address] [place] [address] Dr. Minesh Wallace Neutrophils/100 WBC (Bld) 48.3 % Normal 43.0-75.0 [facility] Comment on above: Performed By: #### L IVER, LIPID, TSH, BMP #### [facility] [address] [place] [address] Dr. Minesh Wallace Platelet mean volume (Bld) [Entitic vol] 10.2 fL Normal 9.5-13.5 [facility] Comment on above: Performed By: #### L IVER, LIPID, TSH, BMP #### [facility] [address] [place] [address] Dr. Minesh Wallace PLT 294 103/ul Normal 150-450 [facility] Comment on above: Performed By: #### L IVER, LIPID, TSH, BMP #### [facility] [address] [place] [address] Dr. Minesh Wallace RBC 4.69 106/ul Normal 4.20-5.40 [facility] Comment on above: Performed By: #### L IVER, LIPID, TSH, BMP #### [facility] [address] [place] [address] Dr. Minesh Wallace WBC 5.9 103/ul Normal 4.0-11.0 [facility] Comment on above: Performed By: #### L IVER, LIPID, TSH, BMP #### [facility] [address] [address] [address] Minesh Wallace GLYCOHEMOGLOBIN A1Con 2021 ADA RECOMMENDATION SEE BELOW Normal [facility] Comment on above: Result Comment: ADA RECOMMENDED LIMIT 4.0 - 6.0 ADA THERAPEUTIC TARGET < 7.0 ACTION SUGGESTED > 7.0 Performed By: #### A 1C #### [facility] [address] [address] [address] Minesh Wallace Glucose [Mass/Vol] 111 mg/dL Normal [facility] Comment on above: Performed By: #### A 1C #### [facility] [address] [address] [address] Minesh Wallace HbA1c (Bld) [Mass fraction] 5.5 % Normal 4.5-6.2 [facility] Comment on above: Performed By: #### A 1C #### [facility] [address] [address] [address] Minesh Wallace LIPID PROFILEon 05-24-2022 CHOL-HDL RATIO NORM SEE BELOW Normal [facility] Comment on above: Result Comment: 3.3 - 4.4 LOW RISK 4.4 - 7.1 AVERAGE RISK 7.1 - 11.0 MODERATE RISK >11.0 HIGH RISK Performed By: #### L IVER, LIPID, TSH, BMP #### [facility] [address] [address] [address] Minesh Wlalace Cholesterol [Mass/Vol] 189 mg/dL Normal <=200 [facility] Comment on above: Performed By: #### L IVER, LIPID, TSH, BMP #### [facility] [address] [address] [address] Minesh Wallace Cholesterol in HDL [Mass/Vol] 55 mg/dL Normal 40-60 [facility] Comment on above: Performed By: #### L IVER, LIPID, TSH, BMP #### [facility] [address] [address] [address] Minesh Wallace Cholesterol in LDL [Mass/Vol] 112.2 mg/dL Normal [facility] Comment on above: Performed By: #### L IVER, LIPID, TSH, BMP #### [facility] [address] [address] [address] Minesh Wallace Cholesterol.total/Ch olesterol in HDL [Mass ratio] 3.4 {ratio} Normal [facility] Comment on above: Performed By: #### L IVER, LIPID, TSH, BMP #### [facility] [address] [address] [address] Minesh Wallace HDL NORMAL > or = 60 mg/dl - LO W CARDIOVASCULAR RISK <40 mg/dl - HIGH CARDIOVASCULAR RISK Normal [facility] Comment on above: Performed By: #### L IVER, LIPID, TSH, BMP #### [facility] [address] [address] [address] Minesh Wallace LDL CALC NORMAL SEE BELOW Normal [facility] Comment on above: Result Comment: <100 mg/dl OPTIMAL 100 - 129 mg/dl NEAR OR ABOVE OPTIMAL 130 - 159 mg/dl BORDERLINE HIGH 160 - 189 mg/dl HIGH >190 mg/dl VERY HIGH Performed By: #### L IVER, LIPID, TSH, BMP #### [facility] [address] [address] [address] Minesh Wallace Triglyceride [Mass/Vol] 109 mg/dL Normal <=150 [facility] Comment on above: Performed By: #### L IVER, LIPID, TSH, BMP #### [facility] [address] [address] [address] Minesh Wallace VLDL CALC 21.8 mg/dL Normal [facility] Comment on above: Performed By: #### L IVER, LIPID, TSH, BMP #### [facility] [address] [address] [address] Minesh Wallace LIVER PROFILEon 05-24-2022 Albumin [Mass/Vol] 3.8 g/dL Normal 3.4-5.0 [facility] Comment on above: Performed By: #### L IVER, LIPID, TSH, BMP #### [facility] [address] [address] [address] Minesh Wallace Albumin/Globulin [Mass ratio] 1.1 {ratio} Normal [facility] Comment on above: Performed By: #### L IVER, LIPID, TSH, BMP #### [facility] [address] [place] [address] Dr. Minesh Wallace ALP [Catalytic activity/Vol] 86 U/L Normal 46-116 [facility] Comment on above: Performed By: #### L IVER, LIPID, TSH, BMP #### [facility] [address] [place] [address] Dr. Minesh Wallace ALT [Catalytic activity/Vol] 24 U/L Normal 14-59 [facility] Comment on above: Performed By: #### L IVER, LIPID, TSH, BMP #### [facility] [address] [place] [address] Dr. Minesh Wallace AST [Catalytic activity/Vol] 15 U/L Normal 15-37 [facility] Comment on above: Performed By: #### L IVER, LIPID, TSH, BMP #### [facility] [address] [place] [address] Dr. Minesh Wallace BILI, CONJUGATED 0.1 mg/dL Normal 0.0-0.2 [facility] Comment on above: Performed By: #### L IVER, LIPID, TSH, BMP #### [facility] [address] [place] [address] Dr. Minesh Wallace Bilirubin [Mass/Vol] 0.2 mg/dL Normal 0.2-1.0 [facility] Comment on above: Performed By: #### L IVER, LIPID, TSH, BMP #### [facility] [address] [place] [address] Dr. Minesh Wallace Globulin (S) [Mass/Vol] 3.4 g/dL Normal [facility] Comment on above: Performed By: #### L IVER, LIPID, TSH, BMP #### [facility] [address] [place] [address] Dr. Minesh Wallace Protein [Mass/Vol] 7.2 g/dL Normal 6.4-8.2 [facility] Comment on above: Performed By: #### L IVER, LIPID, TSH, BMP #### [facility] [address] [place] [address] Dr. Minesh Wallace PROF CHEM 8 (BAS METB)on Anion gap [Moles/Vol] 12.5 mmol/L Normal [facility] Comment on above: Performed By: #### L IVER, LIPID, TSH, BMP #### [facility] [address] [place] [address] Dr. Minesh Wallace Calcium [Mass/Vol] 9.3 mg/dL Normal 8.5-10.1 [facility] Comment on above: Performed By: #### L IVER, LIPID, TSH, BMP #### [facility] [address] [place] [address] Dr. Minesh Wallace Chloride [Moles/Vol] 104 mmol/L Normal 98-107 [facility] Comment on above: Performed By: #### L IVER, LIPID, TSH, BMP #### [facility] [address] [place] [address] Dr. Minesh Wallace CO2 [Moles/Vol] 28.9 mmol/L Normal 21.0-32.[address] [facility] Comment on above: Performed By: #### L IVER, LIPID, TSH, BMP #### [facility] [address] [place] [address] Dr. Minesh Wallace Creatinine [Mass/Vol] 0.75 mg/dL Normal 0.55-1.02 [facility] Comment on above: Performed By: #### L IVER, LIPID, TSH, BMP #### [facility] [address] [place] [address] Dr. Minesh Wallace EGFR-AF VIETNAMESE >60 Normal >=60 [facility] Comment on above: Performed By: #### L IVER, LIPID, TSH, BMP #### [facility] [address] [place] [address] Dr. Minesh Wallace EGFR-NON AF VIETNAMESE >60 Normal >=60 [facility] Comment on above: Performed By: #### L IVER, LIPID, TSH, BMP #### [facility] [address] [place] [address] Dr. Minesh Wallace Glucose [Mass/Vol] 85 mg/dL Normal 74-106 [facility] Comment on above: Performed By: #### L IVER, LIPID, TSH, BMP #### [facility] [address] [address] [address] Minesh Wallace Potassium [Moles/Vol] 4.4 mmol/L Normal 3.5-5.1 [facility] Comment on above: Performed By: #### L IVER, LIPID, TSH, BMP #### [facility] [address] [address] [address] Minesh Wallace Sodium [Moles/Vol] 141 mmol/L Normal 136-145 [facility] Comment on above: Performed By: #### L IVER, LIPID, TSH, BMP #### [facility] [address] [place] [address] Dr. Minesh Wallace Urea nitrogen [Mass/Vol] 15.0 mg/dL Normal 7.0-18.0 [facility] Comment on above: Performed By: #### L IVER, LIPID, TSH, BMP #### [facility] [address] [place] [address] Dr. Minesh Wallace Urea nitrogen/Creatinine [Mass ratio] 20.0 mg/mg Normal [facility] Comment on above: Performed By: #### L IVER, LIPID, TSH, BMP #### [facility] [address] [place] [address] Dr. Minesh Wallace TSHon 05-24-2022 TSH 1.204 uIU/mL Normal 0.358-3.740 [facility] Comment on above: Performed By: #### L IVER, LIPID, TSH, BMP #### [facility] [address] [address] [address] Minesh Wallace MG MAMM SCREEN 3D GLADYS CADon 05-10-2022 MG MAMM SCREEN 3D GLADYS CAD Patient: DEANNA MCKEON Exam Date: 05/10/2022 : 1955 Gender:F Ordering : DR LOGAN SQUIRES . Admission #: [id number] Family : Order #: [id number] CLICK HERE TO VIEW EXAM RADIOLOGY REPORT [...] thyroid cancer at age 67. LOCATION: [facility] BREAST COMPOSITION: Heterogeneously dense,which may obscure small [...] on 05/11/2022 at 07:58 Normal [facility] XR DEXA BONE DENSITYon 05-10 XR [...] [place] Date: 2022-05-10 15:58 Normal [facility] PAP ACOG PANEL 2: 30 to 65on 04-24-2022 . . Normal [facility] Comment on above: Result Comment: Perf ormed at: WB Performed By: #### [id number] #### [facility] [address] [place] [address] Dr. Minesh Wallace Age Gdln ACOG Testing 30-65 Normal [facility] Comment on above: Performed By: #### [id number] #### [facility] [address] [place] [address] Dr. Minesh Wallace DIAGNOSIS: Comment Normal [facility] Comment on above: Result Comment: NEGA TIVE FOR INTRAEPITHELIAL LESION OR MALIGNANCY. CELLULAR CHANGES ASSOCIATED WITH ATROPHY ARE PRESENT. THIS SPECIMEN WAS RESCREENED PART OF OUR TAPE SEWING MACHINE OPERATOR PROGRAM. Performed at: WB Performed By: #### [id number] #### [facility] [address] [place] [address] Dr. Minesh Wallace HPV Aptima Negative Normal Negative [facility] Comment on above: Result Comment: This nucleic acid amplification test detects fourteen high-risk HPV types (16,18,31,33,35,39,45,51,52,56,58,59,66,68) without differentiation. Performed at: =G Performed By: #### [id number] #### [facility] [address] [place] [address] Dr. Minesh Wallace Methodology: Comment Normal [facility] Comment on above: Result Comment: This liquid based ThinPrep(R) pap test was screened with the use of an image guided system. Performed at: WB Performed By: #### [id number] #### [facility] [address] [place] [address] Dr. Minesh Wallace Note: Comment Normal [facility] Comment on above: Result Comment: The Pap smear is a screening test designed to aid in the detection of premalignant and malignant conditions of the uterine cervix. It is not a diagnostic procedure and should not be used as the sole means of detecting cervical cancer. Both false-positive and false-negative reports do occur. . Performed at: WB Performed By: #### [id number] #### [facility] [address] [place] [address] Dr. Minesh Wallace Performed by: Comment Normal [facility] Comment on above: Result Comment: Lorraine Cazares, Yard Caller Performed at: WB Performed By: #### [id number] #### [facility] [address] [address] [address] Minesh Wallace QC reviewed by: Comment Normal [facility] Comment on above: Result Comment: Arsalan Dean, Yard Caller Performed at: WB Performed By: #### [id number] #### [facility] [address] [place], [place] [address] Dr. Minesh Wallace Specimen adequacy: Comment Normal [facility] Comment on above: Result Comment: Sati sfactory for evaluation. Endocervical and/or squamous metaplastic cells (endocervical component) are present. Performed at: WB Performed By: #### [id number] #### [facility] [address] [address] [address] Minesh Wallace Urine Cultureon 02-19-2021 Bacteria identified Cx Nom (U) ORGANISM: Escherichia coli (O:ESCCOL) [facility] Count >100,000 Aerobic DUYEN Charge (NUC86) --- [...] RESISTANT TO ALL B-LACTAM DRUGS. PERFORMED BY: [place] [address] PATHOLOGIST CLOTH EXAMINER MACHINE ALYSSIA BURGOS M.D. Normal [facility] Comment on above: Performed By: #### C UU #### [address] Encounters Encounter Date Encounter Type Care Provider Facility Start: 10-26-2023 Orders Only Brigitte Sanford se LAWN CARETAKER-DEVELOPMENT OFFICER Work Phone: [facility] Comment on above: Cough, unspecified t ype Start: 10-25-2023 End: 10-25-2023 ambulatory SHAIKH KULDIP Not Available Start: 12-01-2022 End: 12-02-2022 ambulatory CARLITOS MARTINEZ Facility:[facility] Start: 06-08-2022 End: 06-09-[address] EDMUNDO FALLON Facility:[facility] Start: 05-26-2022 Encounter for genera l adult medical examination without abnormal findings DR JOE FOOTE [facility] Start: 05-24-2022 End: 05-25-[address] JOE FOOTE Facility:[facility] Start: 05-24-2022 End: 05-25-2022 Encounter for general adult medical examination without abnormal findings DR JOE FOOTE Facility:[facility] Start: 05-10-2022 End: 05-11-[address] LOGAN SQUIRES . Facility:[facility] Start: 04-18-2022 End: 04-18-[address] LOGAN SQUIRES . Facility: Plan of Treatment Date Care Activity Detail Author Start: 04-28-2023 Influenza vaccination Influenza Vaccine [facility] Start: 2022 Fall Risk Screening Fall Risk Screening [facility] Start: 12-21-2007 Administration of varicella zoster vaccine Zoster (Shingles) Vaccine (1 of 2) [facility] Start: 1976 DTaP,Tdap and Td Vaccines (1 - Tdap) DTaP,Tdap and Td Vaccines (1 - Tdap) [facility] Start: 12-21-1975 Adult BMI Screening Adult BMI Screening [facility] Start: 1969 Depression Screening Depression Screening [facility] Start: 1969 Tobacco Screening Tobacco Screening [facility] Payers Date Payer Category Payer Unknown JOSE BROWN CARA (PPO) [id number] 2017-Present [phone] [address] [place] [address] [id number] 1959 Unknown [id number] 1959 Unknown [id number] 1955 Unknown [id number] 1955 Unknown [id number] 1955 Unknown [id number] 1955 Unknown [id number] 1955 Unknown [id number] 1955 Unknown [id number] Social History Date Type Detail Facility Start: 08-06-2019 [facility] End: 08-06-2005 History of tobacco use Current smoker [facility] End: 08-06-2005 History of tobacco use Cigarette Smoker [facility] Start: 08-06-2019 End: 10-07-2020 Cigarettes smoked current (pack per day) - Reported 1 [facility] Start: 08-06-2019 Tobacco use and exposure Smokeless tobacco non-user [facility] Start: 12-18-2020 Alcohol intake Current drinke r of alcohol (finding) [facility] Start: 10-07-2020 End: 12-18-2020 Tobacco use panel [facility] Childcare Unknown [facility] Start: 08-06-2019 Alcohol Comment a couple times a kerry soto [facility] Start: 1955 Sex Assigned At Not on file [facility] Evaluation note Note Date & Type Note Facility Evaluation note Diagnosis Cough, unspecified type documented in this encounter [facility] Instructions Note Date & Type Note Facility Instructions Not on filedocumented in this en counter [facility] Summary Purpose Family History No Family History Records FoundNo Family History Records FoundNo Family History Records Found Advance Directives No Advanced Directives Records FoundNo Advanced Directives Records FoundNo Advanced Directives Records Found Additional Source Comments INFORMATION SOURCE (unrecogn ized section and content) DATE CREATED AUTHOR 03/03/2021 [facility] DATE CREATED AUTHOR AUTHOR'S ORGANIZ ATION 12/23/2022 [facility] DATE CREATED AUTHOR AUTHOR'S ORGANIZ ATION 10/28/2023 [facility] [employer] Care Teams (unrecognized sec tion and content) Pl Sql Developer Relationship Specialty Start Date End Date Joe Foote MD [address] [place] [address] PCP - General Family Medicine 08/06/19 FOR [...] BE BASED ON THE PRIMARY CLINICAL RECORDS. [employer] provides no warranty or guarantee of the accuracy or completeness of information in this document.
== END 2024-05-06 20:23 | disposition home or self-care (01) ==
LOC: LAB 20:22
PROVIDERS: PCP Family Medicine; Visit Provider Obstetrics & Gynecology
DX: Z01.419 Encounter for gynecological examination (general) (routine) without abnormal findings (principal)
CPT/HCPCS: 88175

== ENCOUNTER 2024-05-24 11:09 | Outpatient (OUT) | payer MEDICARE, SELFPAY ==
--- NOTE | 2024-05-24 11:13 | MM_ITS ---
Patient Name: NAWAF MCKEON MR#: [id number] : 1955 Exam Date: 05/24/2024 Ordering Doctor: DR Everett Boothe . RADIOLOGY REPORT PROCEDURE: MM TOMOSYNTHESIS SCREENING BI COMPARISON: MM TOMOSYNTHESIS SCREENING BI, 05/11/2023. MG MAMM SCREEN 3D GLADYS CAD, 05/10/2022. MG MAMM SCREEN 3D GLADYS CAD, 03/30/2021. MG MAMM SCREEN GLADYS W CAD, 08/17/2010. INDICATIONS: Screening Calculator Name NCI Breast Cancer Risk Assessment Tool 5 Year Breast Cancer Risk 2.30% Lifetime Breast Cancer Risk 8.20% Personal Breast Cancer No Personal Ovarian Cancer No Treatments None Family Cancers Mother with thyroid cancer at age 65. LOCATION: [facility] BREAST COMPOSITION: The breasts are heterogeneously dense,which may obscure small masses. FINDINGS: DIAGNOSTIC CATEGORY 2--BENIGN FINDING: RIGHT BREAST: No significant suspicious finding. Scattered benign-appearing calcifications are present. No significant change has occurred. LEFT BREAST: No significant suspicious finding. Scattered benign-appearing calcifications are present. No significant change has occurred. RECOMMENDATIONS: ROUTINE MAMMOGRAM AND CLINICAL EVALUATION IN 12 MONTHS. PLEASE NOTE: A NORMAL MAMMOGRAM DOES NOT EXCLUDE THE POSSIBILITY OF BREAST CANCER. A CLINICALLY SUSPICIOUS PALPABLE LUMP SHOULD BE BIOPSIED. Dictated by: Al Salinas M.D. on 05/24/2024 at 16:10 Approved by: Al Salinas M.D. on 05/24/2024 at 16:13
--- OUTSIDE RECORDS SUMMARY | 2024-05-24 11:14 | XMS_ITS | CCD ---
Author Organization [facility] Care Team Providers Care Visual Basic .Net Developer Name Role Phone TAVIA ., DR FORD Attending Unavailable TAVIA ., DR FORD Consulting Unavailable TAVIA ., DR FORD Admitting Unavailable NADERER, DR JOE Ramirez Primary Care Unavailable AICHHOLZ, CARLITOS ALVAREZ Attending Unavailable AICHHOLZ, CARLITOS MORSEA Consulting Unavailable AICHHOLZ, CARLITOS MORSEA Admitting Unavailable [...] NADERER, DR JOE Ramirez Primary Care Unavailable GRANITE QUARRY, DR HAROON Catalan Consulting Unavailable TAVIA ., DR FORD Consulting Unavailable ZIEBER, DR EDMUNDO Soto Consulting Unavailable Joe Foote MD Primary Care Provider SHAIKH CHRISTIANSEN Attending Unavailable NADERER, JOE Attending Unavailable TAVIA, LOGAN Attending Unavailable Medications Current Medications Medication Drug Class(es) Dates Sig (Normalized) Sig (Original) [id number] 200 actuat albuterol 0.09 mg/actuat metered dose [...] GIGI CURRY Date: 2022-12-01 12:17 Normal [facility] XR CHEST 2 Von 06-08-2022 XR CHEST [...] by: EDMUNDO FALLON Date: 2022-06-08 12:38 Normal [facility] CBC AUTO DIFFon 05-24-2022 BASO # 0.0 103/ul Normal 0.0-0.1 [facility] Comment on above: Performed By: #### L IVER, LIPID, TSH, BMP #### [facility] [address] [place] [address] Dr. Minesh Wallace Basophils/100 WBC (Bld) 0.7 % Normal 0.2-2.0 [facility] Comment on above: Performed By: #### L IVER, LIPID, TSH, BMP #### [facility] [address] [place] [address] Dr. Minesh Wallace EO # 0.3 103/ul Normal 0.0-0.7 [facility] Comment on above: Performed By: #### L IVER, LIPID, TSH, BMP #### [facility] [address] [place] [address] Dr. Minesh Wallace Eosinophils/100 WBC (Bld) 4.2 % Normal 0.9-7.0 [facility] Comment on above: Performed By: #### L IVER, LIPID, TSH, BMP #### [facility] [address] [place] [address] Dr. Minesh Wallace Erythrocyte distribution width (RBC) [Ratio] 13.2 % Normal 11.0-15.0 [facility] Comment on above: Performed By: #### L IVER, LIPID, TSH, BMP #### [facility] [address] [place] [address] Dr. Minesh Wallace Hematocrit (Bld) [Volume fraction] 43.2 % Normal 36.0-48.0 [facility] Comment on above: Performed By: #### L IVER, LIPID, TSH, BMP #### [facility] [address] [place] [address] Dr. Minesh Wallace Hemoglobin (Bld) [Mass/Vol] 14.0 g/dL Normal 12.0-16.0 [facility] Comment on above: Performed By: #### L IVER, LIPID, TSH, BMP #### [facility] [address] [place] [address] Dr. Minesh Wallace IG # 0.01 10e3/ul Normal 0.00-0.03 [facility] Comment on above: Performed By: #### L IVER, LIPID, TSH, BMP #### [facility] [address] [place] [address] Dr. Minesh Wallace IG % 0.2 % Normal 0.0-0.5 [facility] Comment on above: Performed By: #### L IVER, LIPID, TSH, BMP #### [facility] [address] [place] [address] Dr. Minesh Wallace LYMPH # 2.4 103/ul Normal 1.2-3.8 [facility] Comment on above: Performed By: #### L IVER, LIPID, TSH, BMP #### [facility] [address] [place] [address] Dr. Minesh Wallace Lymphocytes/100 WBC (Bld) 39.7 % Normal 20.5-60.0 [facility] Comment on above: Performed By: #### L IVER, LIPID, TSH, BMP #### [facility] [address] [place] [address] Dr. Minesh Wallace MANUAL DIFF REQ NO Normal [facility] Comment on above: Performed By: #### L IVER, LIPID, TSH, BMP #### [facility] [address] [place] [address] Dr. Minesh Wallace MCH (RBC) [Entitic mass] 29.9 pg Normal 26.7-34.0 [facility] Comment on above: Performed By: #### L IVER, LIPID, TSH, BMP #### [facility] [address] [place] [address] Dr. Minesh Wallace MCHC (RBC) [Mass/Vol] 32.4 g/dL Normal 29.9-35.2 [facility] Comment on above: Performed By: #### L IVER, LIPID, TSH, BMP #### [facility] [address] [place] [address] Dr. Minesh Wallace MCV (RBC) [Entitic vol] 92.1 fL Normal 81.0-99.0 [facility] Comment on above: Performed By: #### L IVER, LIPID, TSH, BMP #### [facility] [address] [place] [address] Dr. Minesh Wallace MONO # 0.4 103/ul Normal 0.3-0.8 [facility] Comment on above: Performed By: #### L IVER, LIPID, TSH, BMP #### [facility] [address] [place] [address] Dr. Minesh Wallace Monocytes/100 WBC (Bld) 6.9 % Normal 1.7-12.0 [facility] Comment on above: Performed By: #### L IVER, LIPID, TSH, BMP #### [facility] [address] [place] [address] Dr. Minesh Wallace NEUT # 2.9 103/ul Normal 1.4-6.5 [facility] Comment on above: Performed By: #### L IVER, LIPID, TSH, BMP #### [facility] [address] [place] [address] Dr. Minesh Wallace Neutrophils/100 WBC (Bld) 48.3 % Normal 43.0-75.0 [facility] Comment on above: Performed By: #### L IVER, LIPID, TSH, BMP #### [facility] [address] [place] [address] Dr. Minesh Wallace Platelet mean volume (Bld) [Entitic vol] 10.2 fL Normal 9.5-13.5 [facility] Comment on above: Performed By: #### L IVER, LIPID, TSH, BMP #### [facility] [address] [place] [address] Dr. Minesh Wallace PLT 294 103/ul Normal 150-450 [facility] Comment on above: Performed By: #### L IVER, LIPID, TSH, BMP #### [facility] [address] [place] [address] Dr. Minesh Wallace RBC 4.69 106/ul Normal 4.20-5.40 [facility] Comment on above: Performed By: #### L IVER, LIPID, TSH, BMP #### [facility] [address] [place] [address] Dr. Minesh Wallace WBC 5.9 103/ul Normal 4.0-11.0 [facility] Comment on above: Performed By: #### L IVER, LIPID, TSH, BMP #### [facility] [address] [address] [address] Minesh Wallace GLYCOHEMOGLOBIN A1Con 2021 ADA RECOMMENDATION SEE BELOW Normal [facility] Comment on above: Result Comment: ADA RECOMMENDED LIMIT 4.0 - 6.0 ADA THERAPEUTIC TARGET < 7.0 ACTION SUGGESTED > 7.0 Performed By: #### A 1C #### [facility] [address] [address] [address] Minesh Wallace Glucose [Mass/Vol] 111 mg/dL Normal [facility] Comment on above: Performed By: #### A 1C #### [facility] [address] [address] [address] Minesh Wallace HbA1c (Bld) [Mass fraction] 5.5 % Normal 4.5-6.2 [facility] Comment on above: Performed By: #### A 1C #### [facility] [address] [address] [address] Minesh Wallace LIPID PROFILEon 05-24-2022 CHOL-HDL RATIO NORM SEE BELOW Normal [facility] Comment on above: Result Comment: 3.3 - 4.4 LOW RISK 4.4 - 7.1 AVERAGE RISK 7.1 - 11.0 MODERATE RISK >11.0 HIGH RISK Performed By: #### L IVER, LIPID, TSH, BMP #### [facility] [address] [address] [address] Minesh Wallace Cholesterol [Mass/Vol] 189 mg/dL Normal <=200 [facility] Comment on above: Performed By: #### L IVER, LIPID, TSH, BMP #### [facility] [address] [address] [address] Minesh Wallace Cholesterol in HDL [Mass/Vol] 55 mg/dL Normal 40-60 [facility] Comment on above: Performed By: #### L IVER, LIPID, TSH, BMP #### [facility] [address] [address] [address] Minesh Wallace Cholesterol in LDL [Mass/Vol] 112.2 mg/dL Normal [facility] Comment on above: Performed By: #### L IVER, LIPID, TSH, BMP #### [facility] [address] [address] [address] Minesh Wallace Cholesterol.total/Ch olesterol in HDL [Mass ratio] 3.4 {ratio} Normal [facility] Comment on above: Performed By: #### L IVER, LIPID, TSH, BMP #### [facility] [address] [address] [address] Minesh Wallace HDL NORMAL > or = 60 mg/dl - LO W CARDIOVASCULAR RISK <40 mg/dl - HIGH CARDIOVASCULAR RISK Normal [facility] Comment on above: Performed By: #### L IVER, LIPID, TSH, BMP #### [facility] [address] [place] [address] Dr. Minesh Wallace LDL CALC NORMAL SEE BELOW Normal [facility] Comment on above: Result Comment: <100 mg/dl OPTIMAL 100 - 129 mg/dl NEAR OR ABOVE OPTIMAL 130 - 159 mg/dl BORDERLINE HIGH 160 - 189 mg/dl HIGH >190 mg/dl VERY HIGH Performed By: #### L IVER, LIPID, TSH, BMP #### [facility] [address] [place] [address] Dr. Minesh Wallace Triglyceride [Mass/Vol] 109 mg/dL Normal <=150 [facility] Comment on above: Performed By: #### L IVER, LIPID, TSH, BMP #### [facility] [address] [address] [address] Minesh Wallace VLDL CALC 21.8 mg/dL Normal [facility] Comment on above: Performed By: #### L IVER, LIPID, TSH, BMP #### [facility] [address] [place] [address] Dr. Minesh Wallace LIVER PROFILEon 05-24-2022 Albumin [Mass/Vol] 3.8 g/dL Normal 3.4-5.0 [facility] Comment on above: Performed By: #### L IVER, LIPID, TSH, BMP #### [facility] [address] [address] [address] Minesh Wallace Albumin/Globulin [Mass ratio] 1.1 {ratio} Normal [facility] Comment on above: Performed By: #### L IVER, LIPID, TSH, BMP #### [facility] [address] [address] [address] Minesh Wallace ALP [Catalytic activity/Vol] 86 U/L Normal 46-116 [facility] Comment on above: Performed By: #### L IVER, LIPID, TSH, BMP #### [facility] [address] [address] [address] Minesh Wallace ALT [Catalytic activity/Vol] 24 U/L Normal 14-59 [facility] Comment on above: Performed By: #### L IVER, LIPID, TSH, BMP #### [facility] [address] [place] [address] Dr. Minesh Wallace AST [Catalytic activity/Vol] 15 U/L Normal 15-37 [facility] Comment on above: Performed By: #### L IVER, LIPID, TSH, BMP #### [facility] [address] [place] [address] Dr. Minesh Wallace BILI, CONJUGATED 0.1 mg/dL Normal 0.0-0.2 [facility] Comment on above: Performed By: #### L IVER, LIPID, TSH, BMP #### [facility] [address] [place] [address] Dr. Minesh Wallace Bilirubin [Mass/Vol] 0.2 mg/dL Normal 0.2-1.0 [facility] Comment on above: Performed By: #### L IVER, LIPID, TSH, BMP #### [facility] [address] [address] [address] Minesh Wallace Globulin (S) [Mass/Vol] 3.4 g/dL Normal [facility] Comment on above: Performed By: #### L IVER, LIPID, TSH, BMP #### [facility] [address] [place] [address] Dr. Minesh Wallace Protein [Mass/Vol] 7.2 g/dL Normal 6.4-8.2 [facility] Comment on above: Performed By: #### L IVER, LIPID, TSH, BMP #### [facility] [address] [place] [address] Dr. Minesh Wallace PROF CHEM 8 (BAS METB)on Anion gap [Moles/Vol] 12.5 mmol/L Normal [facility] Comment on above: Performed By: #### L IVER, LIPID, TSH, BMP #### [facility] [address] [place] [address] Dr. Minesh Wallace Calcium [Mass/Vol] 9.3 mg/dL Normal 8.5-10.1 [facility] Comment on above: Performed By: #### L IVER, LIPID, TSH, BMP #### [facility] [address] [place] [address] Dr. Minesh Wallace Chloride [Moles/Vol] 104 mmol/L Normal 98-107 [facility] Comment on above: Performed By: #### L IVER, LIPID, TSH, BMP #### [facility] [address] [place] [address] Dr. Minesh Wallace CO2 [Moles/Vol] 28.9 mmol/L Normal 21.0-32.0 [facility] Comment on above: Performed By: #### L IVER, LIPID, TSH, BMP #### [facility] [address] [place] [address] Dr. Minesh Wallace Creatinine [Mass/Vol] 0.75 mg/dL Normal 0.55-1.02 [facility] Comment on above: Performed By: #### L IVER, LIPID, TSH, BMP #### [facility] [address] [place] [address] Dr. Minesh Wallace EGFR-AF SOUTH [place]OREAN >60 Normal >=60 [facility] Comment on above: Performed By: #### L IVER, LIPID, TSH, BMP #### [facility] [address] [place] [address] Dr. Minesh Wallace EGFR-NON AF [place]ORE[place] >60 Normal >=60 [facility] Comment on above: Performed By: #### L IVER, LIPID, TSH, BMP #### [facility] [address] [address] [address] Minesh Wallace Glucose [Mass/Vol] 85 mg/dL Normal 74-106 [facility] Comment on above: Performed By: #### L IVER, LIPID, TSH, BMP #### [facility] [address] [place] [address] Dr. Minesh Wallace Potassium [Moles/Vol] 4.4 mmol/L Normal 3.5-5.1 [facility] Comment on above: Performed By: #### L IVER, LIPID, TSH, BMP #### [facility] [address] [place] [address] Dr. Minesh Wallace Sodium [Moles/Vol] 141 mmol/L Normal 136-145 [facility] Comment on above: Performed By: #### L IVER, LIPID, TSH, BMP #### [facility] [address] [place] [address] Dr. Minesh Wallace Urea nitrogen [Mass/Vol] 15.0 mg/dL Normal 7.0-18.0 [facility] Comment on above: Performed By: #### L IVER, LIPID, TSH, BMP #### [facility] [address] [place] [address] Dr. Minesh Wallace Urea nitrogen/Creatinine [Mass ratio] 20.0 mg/mg Normal [facility] Comment on above: Performed By: #### L IVER, LIPID, TSH, BMP #### [facility] [address] [place] [address] Dr. Minesh Wallace TSHon 05-24-2022 TSH 1.204 uIU/mL Normal 0.358-3.740 [facility] Comment on above: Performed By: #### L IVER, LIPID, TSH, BMP #### [facility] [address] [place] [address] Dr. Minesh Wallace MG MAMM SCREEN 3D GLADYS CADon 05-10-2022 MG MAMM SCREEN 3D GLADYS CAD Patient: NAWAF MCKEON Exam Date: 05/10/2022 : 1955 Gender:F Ordering : DR LOGAN SQUIRES . Admission #: [id number] Family : Order #: [id number] CLICK HERE TO VIEW EXAM RADIOLOGY REPORT [...] thyroid cancer at age 67. LOCATION: [facility] BREAST COMPOSITION: Heterogeneously dense,which may obscure small [...] Magallanes MD on 05/11/2022 at 07:58 Normal [facility] XR DEXA BONE DENSITYon 05-10 XR [...] by: EDMUNDO FALLON Date: 2022-05-10 15:58 Normal [facility] PAP ACOG PANEL 2: 30 to 65on 04-24-2022 . . Normal [facility] Comment on above: Result Comment: Perf ormed at: WB Performed By: #### [id number] #### [facility] [address] [place] [address] Dr. Minesh Wallace Age Gdln ACOG Testing 30-65 Normal [facility] Comment on above: Performed By: #### [id number] #### [facility] [address] [place] [address] Dr. Minesh Wallace DIAGNOSIS: Comment Normal [facility] Comment on above: Result Comment: NEGA TIVE FOR INTRAEPITHELIAL LESION OR MALIGNANCY. CELLULAR CHANGES ASSOCIATED WITH ATROPHY ARE PRESENT. THIS SPECIMEN WAS RESCREENED PART OF OUR DISTRICT FIRE CHIEF PROGRAM. Performed at: WB Performed By: #### [id number] #### [facility] [address] [place] [address] Dr. Minesh Wallace HPV Aptima Negative Normal Negative [facility] Comment on above: Result Comment: This nucleic acid amplification test detects fourteen high-risk HPV types (16,18,31,33,35,39,45,51,52,56,58,59,66,68) without differentiation. Performed at: =G Performed By: #### [id number] #### [facility] [address] [place] [address] Dr. Minesh Wallace Methodology: Comment Normal [facility] Comment on above: Result Comment: This liquid based ThinPrep(R) pap test was screened with the use of an image guided system. Performed at: WB Performed By: #### [id number] #### [facility] [address] [place] [address] Dr. Minesh Wallace Note: Comment Normal [facility] Comment on above: Result Comment: The Pap smear is a screening test designed to aid in the detection of premalignant and malignant conditions of the uterine cervix. It is not a diagnostic procedure and should not be used as the sole means of detecting cervical cancer. Both false-positive and false-negative reports do occur. . Performed at: WB Performed By: #### [id number] #### [facility] [address] [place] [address] Dr. Minesh Wallace Performed by: Comment Normal [facility] Comment on above: Result Comment: Lorraine Cazares, Project Construction Manager Performed at: WB Performed By: #### [id number] #### [facility] [address] [address] [address] Minesh Wallace QC reviewed by: Comment Normal [facility] Comment on above: Result Comment: Arsalan Dean, Project Construction Manager Performed at: WB Performed By: #### [id number] #### [facility] [address] [address] [address] Minesh Wallace Specimen adequacy: Comment Normal [facility] Comment on above: Result Comment: Sati sfactory for evaluation. Endocervical and/or squamous metaplastic cells (endocervical component) are present. Performed at: WB Performed By: #### [id number] #### [facility] [address] [address] [address] Minesh Wallace Urine Cultureon 02-19-2021 Bacteria identified Cx Nom (U) ORGANISM: Escherichia coli (O:ESCCOL) [place] Count >100,000 Aerobic DUYEN Charge (NUC86) --- [...] RESISTANT TO ALL B-LACTAM DRUGS. PERFORMED BY: [facility] [address] [place] [address] PATHOLOGIST DIRECT MARKETING INTERN ALYSSIA BURGOS M.D. [facility] Comment on above: Performed By: #### C UU #### [address] Encounters Encounter Date Encounter Type Care Provider Facility Start: 05-06-2024 End: 05-06-2024 ambulatory LOGAN SQUIRES Not Available Start: 12-01-2023 End: 12-01-2023 ambulatory JOE FOOTE Not Available Start: 10-26-2023 Orders Only Brigitte Sanford se, APRN-COPPER PLATE LITHOGRAPHER Work Phone: [facility] Comment on above: Cough, unspecified t ype Start: 10-25-2023 End: 10-25-2023 ambulatory SHAIKH KULDIP Not Available Start: 12-01-2022 End: 12-02-2022 ambulatory CARLITOS MARTINEZ Facility:[facility] Start: 06-08-2022 End: 06-09-[address] EDMUNDO FALLON Facility:[facility] Start: 05-26-2022 Encounter for genera l adult medical examination without abnormal findings DR JOE FOOTE [facility] Start: 05-24-2022 End: 05-25-[address] JOE FOOTE Facility:[facility] Start: 05-24-2022 End: 05-25-2022 Encounter for general adult medical examination without abnormal findings DR JOE FOOTE Facility:[facility] Start: 05-10-2022 End: 05-11-[address] LOGAN SQUIRES . Facility:[facility] Start: 04-18-2022 End: 04-18-[address] LOGAN SQUIRES . Facility:[facility] Plan of Treatment Date Care Activity Detail Author Start: 04-28-2023 Influenza vaccination Influenza Vaccine [facility] Start: 2022 Fall Risk Screening Fall Risk Screening [facility] Start: 12-21-2007 Administration of varicella zoster vaccine Zoster (Shingles) Vaccine (1 of 2) [facility] Start: 1976 DTaP,Tdap and Td Vaccines (1 - Tdap) DTaP,Tdap and Td Vaccines (1 - Tdap) [facility] Start: 12-21-1975 Adult BMI Screening Adult BMI Screening [facility] Start: 1969 Depression Screening Depression Screening [facility] Start: 1969 Tobacco Screening Tobacco Screening [facility] Payers Date Payer Category Payer Unknown RANJITHPATRICIO KYLER RBOWN SS (PPO) [id number] 2017-Present [phone] [address] [place] [address] [id number] 1959 Unknown [id number] 1957 Unknown [id number] 1955 Unknown [id number] 1955 Unknown [id number] 1955 Unknown [id number] 1955 Unknown [id number] 1955 Unknown [id number] 1955 Unknown [id number] 1955 Unknown [id number] 1955 Unknown [id number] Social History Date Type Detail Facility Start: 08-06-2019 Tobacco smoking stat RUSTIS Ex-smoker [facility] End: 08-06-2005 History of tobacco use Current smoker [facility] End: 08-06-2005 History of tobacco use [facility] Start: 08-06-2019 End: 10-07-2020 Cigarettes smoked current (pack per day) - [facility]orted [facility] Start: 08-06-2019 Tobacco use and exposure Smokeless tobacco non-user [facility] Start: 12-18-2020 Alcohol intake Current drinke r of alcohol (finding) [facility] Start: 10-07-2020 End: 12-18-2020 Tobacco use panel [facility]care [facility] Start: 08-06-2019 Alcohol Comment a couple times a yea r [facility] Start: 1955 Sex Assigned At Not on file [facility] Evaluation note Note Date & Type Note Facility Evaluation note Diagnosis Cough, unspecified type documented in this encounter [facility] Instructions Note Date & Type Note Facility Instructions Not on filedocumented in this en counter [facility] Summary Purpose Family History No Family History Records FoundNo Family History Records FoundNo Family History Records Found Advance Directives No Advanced Directives Records FoundNo Advanced Directives Records FoundNo Advanced Directives Records Found Additional Source Comments INFORMATION SOURCE (unrecogn ized section and content) DATE CREATED AUTHOR 03/03/2021 [facility] DATE CREATED AUTHOR AUTHOR'S ORGANIZ ATION 12/23/2022 [facility] DATE CREATED AUTHOR AUTHOR'S ORGANIZ ATION 05/07/2024 [facility] EP[employer] Care Teams (unrecognized sec tion and content) Visual Basic .Net Developer Relationship Specialty Start Date End Date Joe Foote MD [address] [place] [address] PCP - General Family Medicine 08/06/19 FOR [...] BE BASED ON THE PRIMARY CLINICAL RECORDS. [facility] [employer] [facility]. provides no warranty or guarantee of the accuracy or completeness of information in this document.
== END 2024-05-24 11:10 | disposition home or self-care (01) ==
LOC: MAMMO 11:09
PROVIDERS: PCP Family Medicine; Visit Provider Obstetrics & Gynecology
DX: Z12.31 Encounter for screening mammogram for malignant neoplasm of breast (principal); Z80.8 Family history of malignant neoplasm of other organs or systems
CPT/HCPCS: 77063; 77067

== ENCOUNTER 2024-06-18 10:01 | Outpatient (OUT) | payer MEDICARE, SELFPAY ==
--- OUTSIDE RECORDS SUMMARY | 2024-06-18 10:13 | XMS_ITS | CCD ---
Author Organization [facility] Care Team Providers Care Wholesale Manager Name Role Phone TAVIA ., DR FORD [...] NADERER, DR JOE Ramirez Primary Care Unavailable VOLGA, DR HAROON Catalan Consult[employer] Unavailable TAVIA ., DR FORD Consulting Unavailable ZIEBER, DR EDMUNDO Soto Consulting Unavailable Joe Foote MD Primary Care Provider [phone] SHAIKH CHRISTIANSEN Attending Unavailable NADERERJOE Attending Unavailable TAVIALOGAN Attending Unavailable NADERER, JOE Attending Unavailable Naderer Joe TOSCANO Primary Care Provider Medications Current Medications Medication Drug Class(es) Dates Sig (Normalized) Sig (Original) [id number] actuat albuterol 0.09 mg/actuat metered dose inhaler (5 sources) beta2-Adrenergic Agonist Start: 10-25-2023 take 2 puff(s) by inhalation every four hours for wheezing albuterol HFA 90 mcg/act inhaler Indications: Centrilobular emphysema (CMS/HCC) Inhale 2 puffs every 4 (four) hours if needed for wheezing or shortness of breath 18 g 1 10/25/2023 Active Start: 01-31-2023 End: 10-26-2023 take 2 puff(s) by inhalation every six hours as needed for wheezing albuterol (PROVENTIL HFA;VENTOLIN HFA) 90 mcg/actuation inhaler Indications: Cough, unspecified type Inhale 2 puffs every 6 (six) hours as needed for wheezing or shortness of breath. 18 g 3 10/26/2023 Active alendronic acid 70 mg oral tablet (6 sources) Bisphosphonate Start: 05-06-2024 End: 08-04-2024 take 1 tablet by mouth in the morning alendronate (Fosamax) 70 MG tablet Indications: Osteoporosis, post-menopausal (CMS/HCC) , Age-related osteoporosis without current pathological fracture (CMS/HCC) Take 1 tablet (70 mg) by mouth every 7 (seven) days Take in the morning with a full glass of water, on an empty stomach, and do not take anything else by mouth or lie down for the next 30 min. 12 tablet 3 05/06/2024 08/04/2024 Active Start: 12-05-2023 take 1 tablet by connie th every week alendronate (Fosamax) 70 MG tablet Indications: Age-related osteoporosis without current pathological fracture (CMS/HCC) Take 1 tablet by mouth once a week 8 tablet 12/05/2023 Active Calcium (3 sources) Phosphate Binder, Calcium calcium 200 MG table t Calcium Active calcium citrate 950 mg / cholecalciferol 250 unt oral tablet (4 sources) Vitamin D take 1 tablet by mouth every twenty-four hours as needed Calcium-Cholecalcifer ol 200-6.25 MG-MCG tablet Take 1 tablet by mouth Daily as needed. Active cholecalciferol 0.05 mg oral capsule (3 sources) Vitamin D cholecalciferol (Vitamin D-3) 50 MCG (1999 UT) capsule Vitamin D Active dicyclomine hydrochloride 20 mg oral tablet (1 source) Anticholinergic Start: 2020 take 1 tablet by mouth every six hours as needed dicyclomine (BENTYL) 20 mg tablet Take 1 tablet (20 mg total) by mouth every 6 (six) hours as needed (abdominal pain). 90 tablet 3 08/17/2021 Active esomeprazole 20 mg delayed release oral capsule (4 sources) Proton Pump Inhibitor Start: 2022 take 1 capsule by mouth once daily before breakfast esomeprazole (NexIUM) 20 mg capsule Take 1 capsule (20 mg total) by mouth every morning before breakfast. 180 capsule 1 01/13/2023 Active melatonin 10 mg oral tablet (1 source) take 1 tablet by mouth once daily as needed melatonin 10 mg tablet Take 10 mg by mouth nightly as needed. 0 Active Multiple Vitamin (Multi Vitamin) tablet (3 sources) Multiple Vitamin (Multi Vitamin) tablet 1 (one) time each day at the same time. Active ondansetron 4 mg disintegrating oral tablet (1 source) Serotonin-3 Receptor Antagonist Start: 2020 take 1 tablet by mouth every eight hours as needed for nausea and vomiting ondansetron ODT (ZOFRAN ODT) 4 mg disintegrating tablet Dissolve 1 tablet (4 mg total) on tongue every 8 (eight) hours as needed for nausea or vomiting. 20 tablet 0 12/17/2020 Active 10 actuat tiotropium 0.0025 mg/actuat inhalation spray (3 sources) Anticholinergic Start: 2023 take 2 puff(s) by inhalation once daily tiotropium (Spiriva Respimat) 2.5 MCG/ACT inhaler Indications: Centrilobular emphysema (CMS/HCC) Inhale 2 puffs Daily 12 g 3 04/12/2024 Active Problems Active Problems Problem Classification Problem Date Documented Da te Episodic/Chronic Chronic obstructive pulmonary disease and bronchiectasis (6 sources) Centriacinar emphysema; Translations: [Centrilobular emphysema] Onset: 08-14-2023 Resolved: 12-01-2023 10-25-2023 Chronic Disorders of lipid metabolism (4 sources) Dyslipidemia; Translations: [Hyperlipidemia, unspecified] Onset: 06-04-2024 06-04-2024 Chronic Osteoporosis (4 sources) Age-related osteoporosis without current pathological fracture; Translations: [Senile osteoporosis] Onset: 05-14-2022 10-25-2023 Chronic Other aftercare (4 sources) Long-term current use of drug therapy; Translations: [Other snf (current) drug therapy] Onset: 06-04-2024 06-04-2024 Episodic Other lower respiratory disease (1 source) Cough; Translations: [Cough, unspecified type] 10-26-2023 Episodic Screening and history of mental health and substance abuse codes (2 sources) Ex-smoker; Translations: [Personal history of nicotine dependence] Onset: 06-04-2024 06-04-2024 Episodic Unclassified (3 sources) COUGH, UNSPECIFIED; Translations: [COUGH, UNSPECIFIED] Onset: 12-21-2022 Past or Other Problems Problem Classification Problem Date Documented Date Episodic/Chronic Abdominal hernia (6 sources) Gastroesophageal reflux disease with hiatal hernia; Translations: [Diaphragmatic hernia without obstruction or gangrene] Onset: 10-25-2023 Resolved: 12-01-2023 10-25-2023 Episodic Immunizations and screening for infectious disease (1 source) Encounter for screening for human papillomavirus (HPV); Translations: [ENC SCREENING HUMAN PAPILLOMAVIRUS] Onset: 04-19-2022 Episodic Mood disorders (2 sources) Mood disorders Onset: 06-04-2024 06-04-2024 Other lower respiratory disease (4 sources) Shortness of breath; Translations: [SHORTNESS OF BREATH] Onset: 06-08-2022 Episodic Other non-epithelial cancer of skin (3 sources) Basal cell carcinoma of lower back; Translations: [Basal cell carcinoma of skin of other part of trunk] Onset: 09-09-2019 10-25-2023 Episodic Other screening for suspected conditions (not [...] GIGI CURRY Date: 2022-12-01 12:17 Normal [facility] XR CHEST 2 Von 06-08-2022 XR CHEST [...] by: EDMUNDO FALLON Date: 2022-06-08 12:38 Normal [facility] CBC AUTO DIFFon 05-24-2022 BASO # 0.0 103/ul Normal 0.0-0.1 [facility] Comment on above: Performed By: #### L IVER, LIPID, TSH, BMP #### [facility] [address] [place] [address] Dr. Minesh Wallace Basophils/100 WBC (Bld) 0.7 % Normal 0.2-2.0 [facility] Comment on above: Performed By: #### L IVER, LIPID, TSH, BMP #### [facility] [address] [place] [address] Dr. Minesh Wallace EO # 0.3 103/ul Normal 0.0-0.7 [facility] Comment on above: Performed By: #### L IVER, LIPID, TSH, BMP #### [facility] [address] [place] [address] Dr. Minesh Wallace Eosinophils/100 WBC (Bld) 4.2 % Normal 0.9-7.0 [facility] Comment on above: Performed By: #### L IVER, LIPID, TSH, BMP #### [facility] [address] [place] [address] Dr. Minesh Wallace Erythrocyte distribution width (RBC) [Ratio] 13.2 % Normal 11.0-15.0 [facility] Comment on above: Performed By: #### L IVER, LIPID, TSH, BMP #### [facility] [address] [place] [address] Dr. Minesh Wallace Hematocrit (Bld) [Volume fraction] 43.2 % Normal 36.0-48.0 [facility] Comment on above: Performed By: #### L IVER, LIPID, TSH, BMP #### [facility] [address] [place] [address] Dr. Minesh Wallace Hemoglobin (Bld) [Mass/Vol] 14.0 g/dL Normal 12.0-16.0 [facility] Comment on above: Performed By: #### L IVER, LIPID, TSH, BMP #### [facility] [address] [place] [address] Dr. Minesh Wallace IG # 0.01 10e3/ul Normal 0.00-0.03 [facility] Comment on above: Performed By: #### L IVER, LIPID, TSH, BMP #### [facility] [address] [place] [address] Dr. Minesh Wallace IG % 0.2 % Normal 0.0-0.5 [facility] Comment on above: Performed By: #### L IVER, LIPID, TSH, BMP #### [facility] [address] [place] [address] Dr. Minesh Wallace LYMPH # 2.4 103/ul Normal 1.2-3.[address] [facility] Comment on above: Performed By: #### L IVER, LIPID, TSH, BMP #### [facility] [address] [place] [address] Dr. Minesh Wallace Lymphocytes/100 WBC (Bld) 39.7 % Normal 20.5-60.0 [facility] Comment on above: Performed By: #### L IVER, LIPID, TSH, BMP #### [facility] [address] [place] [address] Dr. Minesh Wallace MANUAL DIFF REQ NO Normal [facility] Comment on above: Performed By: #### L IVER, LIPID, TSH, BMP #### [facility] [address] [place] [address] Dr. Minesh Wallace MCH (RBC) [Entitic mass] 29.9 pg Normal 26.7-34.[address] [facility] Comment on above: Performed By: #### L IVER, LIPID, TSH, BMP #### [facility] [address] [place] [address] Dr. Minesh Wallace MCHC (RBC) [Mass/Vol] 32.4 g/dL Normal 29.9-35.[address] [facility] Comment on above: Performed By: #### L IVER, LIPID, TSH, BMP #### [facility] [address] [place] [address] Dr. Minesh Wallace MCV (RBC) [Entitic vol] 92.1 fL Normal 81.0-99.0 [facility] Comment on above: Performed By: #### L IVER, LIPID, TSH, BMP #### [facility] [address] [place] [address] Dr. Minesh Wallace MONO # 0.4 103/ul Normal 0.3-0.[address] [facility] Comment on above: Performed By: #### L IVER, LIPID, TSH, BMP #### [facility] [address] [place] [address] Dr. Minesh Wallace Monocytes/100 WBC (Bld) 6.9 % Normal 1.7-12.0 [facility] Comment on above: Performed By: #### L IVER, LIPID, TSH, BMP #### [facility] [address] [place] [address] Dr. Minesh Wallace NEUT # 2.9 103/ul Normal 1.4-6.[address] [facility] Comment on above: Performed By: #### L IVER, LIPID, TSH, BMP #### [facility] [address] [place] [address] Dr. Minesh Wallace Neutrophils/100 WBC (Bld) 48.3 % Normal 43.0-75.0 [facility] Comment on above: Performed By: #### L IVER, LIPID, TSH, BMP #### [facility] [address] [place] [address] Dr. Minesh Wallace Platelet mean volume (Bld) [Entitic vol] 10.2 fL Normal 9.5-13.5 [facility] Comment on above: Performed By: #### L IVER, LIPID, TSH, BMP #### [facility] [address] [address] [address] Minesh Wallace PLT 294 103/ul Normal 150-[address] [facility] Comment on above: Performed By: #### L IVER, LIPID, TSH, BMP #### [facility] [address] [place] [address] Dr. Minesh Wallace RBC 4.69 106/ul Normal 4.20-5.40 [facility] Comment on above: Performed By: #### L IVER, LIPID, TSH, BMP #### [facility] [address] [place] [address] Dr. Minesh Wallace WBC 5.9 103/ul Normal 4.0-11.0 [facility] Comment on above: Performed By: #### L IVER, LIPID, TSH, BMP #### [facility] [address] [place] [address] Dr. Minesh Wallace GLYCOHEMOGLOBIN A1Con 2021 ADA RECOMMENDATION SEE BELOW Normal [facility] Comment on above: Result Comment: ADA RECOMMENDED LIMIT 4.0 - 6.0 ADA THERAPEUTIC TARGET < 7.0 ACTION SUGGESTED > 7.0 Performed By: #### A 1C #### [facility] [address] [place] [address] Dr. Minesh Wallace Glucose [Mass/Vol] 111 mg/dL Normal [facility] Comment on above: Performed By: #### A 1C #### [facility] [address] [place] [address] Dr. Minesh Wallace HbA1c (Bld) [Mass fraction] 5.5 % Normal 4.5-6.2 [facility] Comment on above: Performed By: #### A 1C #### [facility] [address] [address] [address] Minesh Wallace LIPID PROFILEon 05-24-2022 CHOL-HDL RATIO NORM SEE BELOW Normal [facility] Comment on above: Result Comment: 3.3 - 4.4 LOW RISK 4.4 - 7.1 AVERAGE RISK 7.1 - 11.0 MODERATE RISK >11.0 HIGH RISK Performed By: #### L IVER, LIPID, TSH, BMP #### [facility] [address] [address] [address] Minesh Wallace Cholesterol [Mass/Vol] 189 mg/dL Normal <=200 [facility] Comment on above: Performed By: #### L IVER, LIPID, TSH, BMP #### [facility] [address] [address] [address] Minesh Wallace Cholesterol in HDL [Mass/Vol] 55 mg/dL Normal 40-60 [facility] Comment on above: Performed By: #### L IVER, LIPID, TSH, BMP #### [facility] [address] [place] [address] Dr. Minesh Wallace Cholesterol in LDL [Mass/Vol] 112.2 mg/dL Normal [facility] Comment on above: Performed By: #### L IVER, LIPID, TSH, BMP #### [facility] [address] [place] [address] Dr. Minesh Wallace Cholesterol.total/Ch olesterol in HDL [Mass ratio] 3.4 {ratio} Normal [facility] Comment on above: Performed By: #### L IVER, LIPID, TSH, BMP #### [facility] [address] [place] [address] Dr. Minesh Wallace HDL NORMAL > or = 60 mg/dl - LO W CARDIOVASCULAR RISK <40 mg/dl - HIGH CARDIOVASCULAR RISK Normal [facility] Comment on above: Performed By: #### L IVER, LIPID, TSH, BMP #### [facility] [address] [place] [address] Dr. Minesh Wallace LDL CALC NORMAL SEE BELOW Normal [facility] Comment on above: Result Comment: <100 mg/dl OPTIMAL 100 - 129 mg/dl NEAR OR ABOVE OPTIMAL 130 - 159 mg/dl BORDERLINE HIGH 160 - 189 mg/dl HIGH >190 mg/dl VERY HIGH Performed By: #### L IVER, LIPID, TSH, BMP #### [facility] [address] [address] [address] Minesh Wallace Triglyceride [Mass/Vol] 109 mg/dL Normal <=150 [facility] Comment on above: Performed By: #### L IVER, LIPID, TSH, BMP #### [facility] [address] [address] [address] Minesh Wallace VLDL CALC 21.8 mg/dL Normal [facility] Comment on above: Performed By: #### L IVER, LIPID, TSH, BMP #### [facility] [address] [address] [address] Minesh Wallace LIVER PROFILEon 05-24-2022 Albumin [Mass/Vol] 3.8 g/dL Normal 3.4-5.0 [facility] Comment on above: Performed By: #### L IVER, LIPID, TSH, BMP #### [facility] [address] [address] [address] Minesh Wallace Albumin/Globulin [Mass ratio] 1.1 {ratio} Normal [facility] Comment on above: Performed By: #### L IVER, LIPID, TSH, BMP #### [facility] [address] [place] [address] Dr. Minesh Wallace ALP [Catalytic activity/Vol] 86 U/L Normal 46-116 [facility] Comment on above: Performed By: #### L IVER, LIPID, TSH, BMP #### [facility] [address] [address] [address] Minesh Wallace ALT [Catalytic activity/Vol] 24 U/L Normal 14-59 [facility] Comment on above: Performed By: #### L IVER, LIPID, TSH, BMP #### [facility] [address] [address] [address] Minesh Wallace AST [Catalytic activity/Vol] 15 U/L Normal 15-37 [facility] Comment on above: Performed By: #### L IVER, LIPID, TSH, BMP #### [facility] [address] [place] [address] Dr. Minesh Wallace BILI, CONJUGATED 0.1 mg/dL Normal 0.0-0.2 [facility] Comment on above: Performed By: #### L IVER, LIPID, TSH, BMP #### [facility] [address] [place] [address] Dr. Minesh Wallace Bilirubin [Mass/Vol] 0.2 mg/dL Normal 0.2-1.0 [facility] Comment on above: Performed By: #### L IVER, LIPID, TSH, BMP #### [facility] [address] [place] [address] Dr. Minesh Wallace Globulin (S) [Mass/Vol] 3.4 g/dL Normal [facility] Comment on above: Performed By: #### L IVER, LIPID, TSH, BMP #### [facility] [address] [place] [address] Dr. Minesh Wallace Protein [Mass/Vol] 7.2 g/dL Normal 6.4-8.2 [facility] Comment on above: Performed By: #### L IVER, LIPID, TSH, BMP #### [facility] [address] [place] [address] Dr. Minesh Wallace PROF CHEM 8 (BAS METB)on Anion gap [Moles/Vol] 12.5 mmol/L Normal [facility] Comment on above: Performed By: #### L IVER, LIPID, TSH, BMP #### [facility] [address] [place] [address] Dr. Minesh Wallace Calcium [Mass/Vol] 9.3 mg/dL Normal 8.5-10.1 [facility] Comment on above: Performed By: #### L IVER, LIPID, TSH, BMP #### [facility] [address] [place] [address] Dr. Minesh Wallace Chloride [Moles/Vol] 104 mmol/L Normal 98-[address] [facility] Comment on above: Performed By: #### L IVER, LIPID, TSH, BMP #### [facility] [address] [address] [address] Minesh Wallace CO2 [Moles/Vol] 28.9 mmol/L Normal 21.0-32.0 [facility] Comment on above: Performed By: #### L IVER, LIPID, TSH, BMP #### [facility] [address] [address] [address] Minesh Wallace Creatinine [Mass/Vol] 0.75 mg/dL Normal 0.55-1.02 [facility] Comment on above: Performed By: #### L IVER, LIPID, TSH, BMP #### [facility] [address] [address] [address] Minesh Wallace EGFR-AF PALESTINIAN >60 Normal >=60 [facility] Comment on above: Performed By: #### L IVER, LIPID, TSH, BMP #### [facility] [address] [place] [address] Dr. Minesh Wallace EGFR-NON AF PALESTINIAN >60 Normal >=60 [facility] Comment on above: Performed By: #### L IVER, LIPID, TSH, BMP #### [facility] [address] [address] [address] Minesh Wallace Glucose [Mass/Vol] 85 mg/dL Normal 74-106 [facility] Comment on above: Performed By: #### L IVER, LIPID, TSH, BMP #### [facility] [address] [address] [address] Minesh Wallace Potassium [Moles/Vol] 4.4 mmol/L Normal 3.5-5.1 [facility] Comment on above: Performed By: #### L IVER, LIPID, TSH, BMP #### [facility] [address] [address] [address] Minesh Wallace Sodium [Moles/Vol] 141 mmol/L Normal 136-145 [facility] Comment on above: Performed By: #### L IVER, LIPID, TSH, BMP #### [facility] [address] [address] [address] Minesh Wallace Urea nitrogen [Mass/Vol] 15.0 mg/dL Normal 7.0-18.0 [facility] Comment on above: Performed By: #### L IVER, LIPID, TSH, BMP #### [facility] [address] [address] [address] Minesh Wallace Urea nitrogen/Creatinine [Mass ratio] 20.0 mg/mg Normal [facility] Comment on above: Performed By: #### L IVER, LIPID, TSH, BMP #### [facility] [id number] Minesh Wallace TSHon 05-24-2022 TSH 1.204 uIU/mL Normal 0.358-3.740 [facility] Comment on above: Performed By: #### L IVER, LIPID, TSH, BMP #### [facility] [address] [address] [address] Minesh Wallace MG MAMM SCREEN 3D GLADYS CADon 05-10-2022 MG MAMM SCREEN 3D GLADYS CAD Patient: DEANNA MCKEON Exam Date: 05/10/2022 : 1955 Gender:F Ordering : DR LOGAN BOOTHE . Admission #: [id number] Family : Order #: [id number] CLICK HERE TO VIEW EXAM RADIOLOGY REPORT [...] thyroid cancer at age 67. LOCATION: [facility] BREAST COMPOSITION: Heterogeneously dense,which may obscure small [...] Magallanes MD on 05/11/2022 at 07:[address] [facility] XR DEXA BONE DENSITYon 05-10 XR [...] by: EDMUNDO FALLON Date: 2022-05-10 15:[address] [facility] PAP ACOG PANEL 2: 30 to 65on 04-24-[address] [facility] Comment on above: Result Comment: Perf ormed at: WB Performed By: #### [id number] #### [facility] [address] [place] [address] Dr. Minesh Wallace Age Gdln ACOG Testing 30-[address] [facility] Comment on above: Performed By: #### [id number] #### [facility] [address] [place] [address] Dr. Minesh Wallace DIAGNOSIS: Comment Normal [facility] Comment on above: Result Comment: NEGA TIVE FOR INTRAEPITHELIAL LESION OR MALIGNANCY. CELLULAR CHANGES ASSOCIATED WITH ATROPHY ARE PRESENT. THIS SPECIMEN WAS RESCREENED PART OF OUR [employer]GRAM. Performed at: WB Performed By: #### [id number] #### [facility] [address] [address] [address] Minesh Wallace HPV Aptima Negative Normal Negative [facility] Comment on above: Result Comment: This nucleic acid amplification test detects fourteen high-risk HPV types (16,18,31,33,35,39,45,51,52,56,58,59,66,68) without differentiation. Performed at: =G Performed By: #### [id number] #### [facility] [address] [place] [address] Dr. Minesh Wallace Methodology: Comment [facility] Comment on above: Result Comment: This liquid based ThinPrep(R) pap test was screened with the use of an image guided system. Performed at: WB Performed By: #### [id number] #### [facility] [address] [place] [address] Dr. Minesh Wallace Note: Comment Normal [facility] Comment on above: Result Comment: The Pap smear is a screening test designed to aid in the detection of premalignant and malignant conditions of the uterine cervix. It is not a diagnostic procedure and should not be used as the sole means of detecting cervical cancer. Both false-positive and false-negative reports do occur. . Performed at: WB Performed By: #### [id number] #### [facility] [address] [place] [address] Dr. Minesh Wallace Performed by: Comment Normal [facility] Comment on above: Result Comment: Lorraine Cazares, Light Bulb Tester Performed at: WB Performed By: #### [id number] #### [facility] [address] [place] [address] Dr. Minesh Wallace QC reviewed by: Comment Normal [facility] Comment on above: Result Comment: Arsalan Dean, Light Bulb Tester Performed at: WB Performed By: #### [id number] #### [facility] [address] [place] [address] Dr. Minesh Wallace Specimen adequacy: Comment Normal [facility] Comment on above: Result Comment: Sati sfactory for evaluation. Endocervical and/or squamous metaplastic cells (endocervical component) are present. Performed at: [facility] Performed By: #### [id number] #### [facility] [address] [place] [address] Dr. Minesh Wallace Urine Cultureon 02-19-2021 Bacteria identified Cx Nom (U) ORGANISM: Escherichia coli (O:ESCCOL) [place] Count >100,000 Aerobic DUYEN Charge (NUC86) --- [...] RESISTANT TO ALL B-LACTAM DRUGS. PERFORMED BY: [place] [address] PATHOLOGIST INSIDE PHONE SALES ALYSSIA BURGOS M.D. [facility] Comment on above: Performed By: #### C UU #### [address] Vital Signs Date Time Vital Sign Value Performing Clinician Francisco burgess 06-04-2024 11: Body height 160 cm Joe Foote MD Work Phone: [facility] 06-04-2024 11: Body mass index (BMI) [Ratio] 21.26 kg/m2 Joe Foote MD Work Phone: [facility] 06-04-2024 11:11 Body temperature 96.01 [degF] Joe Foote MD Work Phone: [facility] 06-04-2024 11:110400 Body weight 54.43 kg Joe Foote MD Work Phone: [facility] 06-04-2024 11:110400 Diastolic blood pressure 64 mm[Hg] Joe Foote MD Work Phone: [facility] 06-04-2024 11:110400 Heart rate 105 /min Joe Foote MD Work Phone: [facility] 06-04-2024 11:110400 Respiratory rate 20 /min Joe Foote MD Work Phone: [facility] 06-04-2024 11:110400 SaO2% (BldA) [Mass fraction] 97 % Joe Foote MD Work Phone: [facility] 06-04-2024 11:110400 Systolic blood pressure 126 mm[Hg] Joe Foote MD Work Phone: [facility] Encounters Encounter Date Encounter Type Care Provider Facility Start: 06-04-2024 End: 06-04-2024 Bamboo flowsheet Joe Foote MD Work Phone: [facility] Start: 06-04-2024 End: 06-04-2024 Bamboo flowsheet Joe Foote MD Work Phone: [facility] Start: 06-04-2024 End: 06-04-2024 Patient encounter procedure Joe Foote MD Work Phone: [facility] Work Phone: Start: 06-04-2024 End: 06-04-2024 Postop follow up visit related to original px Joe Foote MD Work Phone: [facility] Comment on above: Medicare annual well ness visit, subsequent (Primary Dx); Dyslipidemia (CMS/HCC); Encounter for long-term (current) use of medications Start: 06-04-2024 End: 06-04-2024 ambulatory JOE FOOTE Not Available Start: 05-06-2024 End: 05-06-2024 ambulatory LOGAN BOOTHE Not Available Start: 12-01-2023 End: 12-01-2023 ambulatory JOE FOOTE Not Available Start: 10-26-2023 Orders Only Brigitte Sanford se SUPPORT SERVICES MANAGER-TUFT MACHINE OPERATOR Work Phone: [facility] Comment on above: Cough, unspecified t ype Start: 10-25-2023 End: 10-25-2023 ambulatory SHAIKH ANDREWSBEV Not Available Start: 12-01-2022 End: 12-02-2022 ambulatory CARLITOS CONNORLILIADerik Facility:[facility] Start: 06-08-2022 End: 06-09-[address] EDMUNDO FALLON Facility:[facility] Start: 05-26-2022 Encounter for genera l adult medical examination without abnormal findings DR JOE FOOTE [facility] Start: 05-24-2022 End: 05-25-[address] JOE FOOTE Facility:[facility] Start: 05-24-2022 End: 05-25-2022 Encounter for general adult medical examination without abnormal findings DR JOE FOOTE Facility:[facility] Start: 05-10-2022 End: 05-11-[address] LOGAN BOOTHE . Facility:[facility] Start: 04-18-2022 End: 04-18-[address] LOGAN BOOTHE . Facility: Procedures Date Procedure Procedure Detail Performing Clinician Start: 05-24-2024 Mammography Joe cohen MD Work Phone: Start: 12-18-2020 Colonoscopy Joe cohen MD Work Phone: Plan of Treatment Date Care Activity Detail Author Start: 12-18-2030 Screening for malign ant neoplasm of colon [facility] Start: 05-24-2025 Screening for malign ant neoplasm of breast Mammogram [facility] Start: 05-12-2025 End: 05-12-2025 Patient encounter procedure 05/12/2025 10:00 AM EDT Office Visit [facility] [address] [place] [phone] Logan Boothe, DO [address] [place] [address] [facility] Start: 05-06-2025 Medicare Annual Well ness (AWV) Medicare Annual Wellness (AWV) [facility] Start: 12-03-2024 End: 12-03-2024 Patient encounter procedure 12/03/2024 10:30 AM EDT Office Visit [facility] [address] [place] [id number] Joe Foote MD [address] [place] [phone] [facility] Start: 06-04-2024 End: 06-04-2025 Basic metabolic 1998 panel - Serum or Plasma Basic metabolic panel Lab Routine Encounter for long-term (current) use of medications Expected: 06/04/2024 (Approximate), Expires: 06/04/2025 [facility] Work Phone: Comment on above: Expected: 06/04/2024 (Approximate), Expires: 06/04/2025 Start: 06-04-2024 End: 06-04-2025 CBC W Auto Differential panel - Blood CBC and differential Lab Routine Encounter for long-term (current) use of medications Expected: 06/04/2024 (Approximate), Expires: 06/04/2025 [facility] Comment on above: Expected: 06/04/2024 (Approximate), Expires: 06/04/2025 Start: 06-04-2024 End: 06-04-2025 Hepatic function 2000 panel - Serum or Plasma Hepatic function panel Lab Routine Encounter for long-term (current) use of medications Expected: 06/04/2024 (Approximate), Expires: 06/04/2025 [facility] Comment on above: Expected: 06/04/2024 (Approximate), Expires: 06/04/2025 Start: 06-04-2024 End: 06-04-2025 Lipid 1996 panel - Serum or Plasma Lipid panel Lab Routine Dyslipidemia (CMS/HCC) Expected: 06/04/2024 (Approximate), Expires: 06/04/2025 [facility] Comment on above: Expected: 06/04/2024 (Approximate), Expires: 06/04/2025 Start: 06-04-2024 End: 06-04-2024 Patient encounter procedure 06/04/2024 11:00 AM EDT Office Visit [facility] [address] [place] [id number] Joe Foote MD [address] [place] [phone] Arrived [facility] Comment on above: Arrived Start: 04-28-2024 Influenza vaccination Influenza Vacc ine (#1) [facility] Start: 04-28-2023 Influenza vaccination Influenza Vacc ine [facility] Start: 2022 Fall Risk Screening Fall Risk Screen ing [facility] Start: 12-21-2007 Administration of varicella zoster vaccine Zoster (Shingles) Vaccine (1 of 2) [facility] Start: 1976 DTaP,Tdap and Td Vac cines (1 - Tdap) DTaP,Tdap and Td Vaccines (1 - Tdap) [facility] Start: 12-21-1975 Adult BMI Screening Adult BMI Screen ing [facility] Start: 1969 Depression Screening Depression Scre ening [facility] Start: 1969 Tobacco Screening Tobacco Screening [facility] Start: 1957 Screening for malign ant neoplasm of colon [facility] Immunizations Immunization Date Immunization Notes Care Provider Fa cility 05-16-2023 Pneumococcal Conjuga te PCV 20 Joe Foote MD Work Phone: [facility] 08-12-2022 Seasonal, quadrivale nt, recombinant, injectable influenza vaccine, preservative free Joe Foote MD Work Phone: [facility] 08-12-2022 influenza virus vacc ine, unspecified formulation Joe Foote MD Work Phone: [facility] Payers Date Payer Category Payer Medicare ANTH MEDICARE ADVANTAGE FORMERLY [facility] MEDIC[facility] ADVANTAGE [id number] 2022-Present [address] [place] [address] [id number] 2017 Unknown JOSE BROWN CARA (PPO) [id number] 2017-Present [phone] [address] [place] [address] [id number] 1959 Unknown [id number] 1959 Unknown [id number] 1957 Unknown [id number] 3 1957 Unknown [id number] 3 1957 Unknown [id number] 3 1957 Unknown [id number] 3 1957 Unknown [id number] 3 1957 Unknown [id number] 59 1957 Unknown [id number] 59 1957 Unknown [id number] 59 1957 Unknown [id number] 59 Social History Date Type Detail Facility Start: 08-06-2019 End: 10-25-2023 Tobacco smoking status FLIS Ex-smoker [facility] End: 08-06-2005 History of tobacco use Current smoker [facility] End: 08-06-2005 History of tobacco use Cigarette Smoker [facility] Start: 08-06-2019 End: 11-24-2023 Cigarettes smoked current (pack per day) - Reported 1 [facility] Start: 08-06-2019 Tobacco use and exposure Smokeless tobacco non-user [facility] Start: 12-18-2020 Alcohol intake Current drinker of alcohol (finding) [facility] Start: 12-18-2020 End: 11-24-2023 Tobacco use panel [facility] Childcare Unknown [facility] Start: 08-06-2019 Alcohol Comment a couple times a year [facility] Start: 1955 Sex Assigned At Not on file [facility] History of tobacco use Passive smoker [facility] Start: 05-06-2024 End: 06-04-2024 Alcoholic beverage intake Lifetime non-drinker (finding) [facility] Do you belong to any clubs or organizations such as anglican groups, unions, fraternal or athletic groups, or school groups? No [facility] Are you now , , , , never or living with a partner? [facility] How often to you hav e a drink containing alcohol? Never [facility] How hard is it for y ou to pay for the very basics like food, housing, medical care, and heating Somewhat hard [facility] Do you feel stress - tense, restless, nervous, or anxious, or unable to sleep at night because your mind is troubled all the time - these days [OSQ] Only a little [facility] (I/We) worried wheth er (my/our) food would run out before (I/we) got money to buy more. Never true [facility] Start: 1955 Sex assigned at Female [facility] Start: 04-19-2023 Gender identity Identifies as female gender (finding) [facility] Start: 04-19-2023 Sexual orientation Heterosexual (finding) [facility] History of Present illness Narrative 06-04-2024 Joe Foote MD - 06/04/2024 12:31 PM EDTMabena Foote MD - 06/04/2024 11:00 AM EDT Note Date & Type Note Facility 06-04-2024 History of Presen t illness Narrative Associated Problem(s): Medicare annual wellness visit, subsequent Due for labs. Discussed proper diet and regular aerobic exercise. Need aerobic exercise 5-6 days a week for 30 minutes at a time. Smaller portions and limit total calories. Colonoscopy every 10 years. Tetanus every 10 years. Advised not to smoke. Discussed daily Aspirin therapy. Images from the original note were not included. Subjective Patient ID: Deanna Mckeon is a 68 y.o. female who presents for Medicare Annual Wellness Visit Subsequent (wellness). Presents for medicare annual wellness visit. Patient feels well today. Weight unchanged over the past year. Active around house and tries to walk several days a week. Tries to watch diet and eat healthy. Increased fruits and vegetables. Smaller portions and limits snacking. Tries to limit total daily calories. Due for labs. Mammogram normal in April and colonoscopy normal in 2020. Smoked 1 PPD x 30 years and quit in 2011. Due for LDCT chest in July. Review of Systems Respiratory: Negative for cough, shortness of breath and wheezing. Cardiovascular: Negative for chest pain and palpitations. Gastrointestinal: Negative for abdominal pain, diarrhea, nausea and vomiting. Genitourinary: Negative for dysuria. Objective Physical Exam Constitutional: General: She is not in acute distress. Appearance: Normal appearance. HENT: Head: Normocephalic. Right Ear: Tympanic membrane normal. Left Ear: Tympanic membrane normal. Eyes: Extraocular Movements: Extraocular movements intact. Pupils: Pupils are equal, round, and reactive to light. Cardiovascular: Rate and Rhythm: Normal rate and regular rhythm. Heart sounds: No murmur heard. No friction rub. No gallop. Pulmonary: Effort: Pulmonary effort is normal. Breath sounds: Normal breath sounds. No wheezing, rhonchi or rales. Abdominal: General: Bowel sounds are normal. There is no distension. Palpations: Abdomen is soft. Tenderness: There is no abdominal tenderness. There is no guarding or rebound. Musculoskeletal: General: No swelling or tenderness. Cervical back: Neck supple. Right lower leg: No edema. Left lower leg: No edema. Skin: Findings: No erythema or rash. Neurological: General: No focal deficit present. Mental Status: She is alert and oriented to person, place, and time. Cranial Nerves: No cranial nerve deficit. Motor: No weakness. Gait: Gait normal. Assessment/Plan Problem List Items Addressed This Visit Encounter for long-term (current) use of medications Relevant Orders Basic metabolic panel CBC and differential Hepatic function panel Dyslipidemia (CMS/HCC) Relevant Orders Lipid panel Medicare annual wellness visit, subsequent - Primary Due for labs. Discussed proper diet and regular aerobic exercise. Need aerobic exercise 5-6 days a week for 30 minutes at a time. Smaller portions and limit total calories. Colonoscopy every 10 years. Tetanus every 10 years. Advised not to smoke. Discussed daily Aspirin therapy. documented in this encounter [facility] Evaluation note Note Date & Type Note Facility Evaluation note Diagnosis Cough, unspecified type documented in this encounter [facility] Evaluation note Note Date & Type Note Facility Evaluation note Diagnosis Medicare annual wellness visit, subsequent- Primary Dyslipidemia (CMS/HCC) Other and unspecified hyperlipidemia Encounter for long-term (current) use of medications Encounter for long-term (current) use of other medications documented in this encounter [facility] Instructions Note Date & Type Note Facility Instructions Not on filedocumented in this en counter [facility] [employer] [facility] Summary Purpose Family History No Family History Records FoundNo Family History Records FoundNo Family History Records Found Advance Directives No Advanced Directives Records FoundNo Advanced Directives Records FoundNo Advanced Directives Records Found Additional Source Comments INFORMATION SOURCE (unrecogn ized section and content) DATE CREATED AUTHOR 03/03/2021 [facility] DATE CREATED AUTHOR AUTHOR'S ORGANIZ ATION 12/23/2022 [facility] DATE CREATED AUTHOR AUTHOR'S ORGANIZ ATION 06/06/2024 [facility] d[facility] Specialists [employer] Care Teams (unrecognized sec tion and content) 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 Relationship Specialty Start Date End Date Joe Foote MD [address] [place] [address] PCP - General Family Medicine 08/06/19 Wholesale Manager Relationship Specialty Start Date End Date Joe Foote MD [address] [place] [address] PCP - General Family Medicine 10/25/23 Wholesale Manager Relationship Specialty Start Date End Date Joe Foote MD [address] [place] [address] PCP - General Family Medicine 10/25/23 Reason for Visit (unrecogniz ed section and content) Reason Comments Medicare Annual Wellness Visit Subsequen t wellness FOR RECORDS PERTAINING TO PATIENTS WHO ARE [...] BE BASED ON THE PRIMARY CLINICAL RECORDS. [employer] provides no warranty or guarantee of the accuracy or completeness of information in this document.
[2024-06-18 10:32] LABS: Alanine Aminotransferase 24 U/L (14-59); Albumin Globulin Ratio 1.1; Albumin Level 3.6 g/dL (3.4-5.0); Alkaline Phosphatase 55 U/L (46-116); Anion Gap 14.3; Aspartate Amino Transferase 17 U/L (15-37); BUN Creatinine Ratio 12.8; Bilirubin Direct 0.1 mg/dL (0.0-0.2); Bilirubin Total 0.5 mg/dL (0.2-1.0); Calcium 9.4 mg/dL (8.5-10.1); Carbon Dioxide 27.9 mmol/L (21.0-32.0); Chloride 106 mmol/L (98-107); Chol HDL Ratio 3.5; Cholesterol 211 mg/dL (<=200); Estimated GFR (African America >60 (>=60 mL/min/1.73m^2); Estimated GFR (Non-African Ame >60 (>=60 mL/min/1.73m^2); Globulin 3.4 g/dL; Glucose 91 mg/dL (74-106); HDL Cholesterol 61 mg/dL (40-60); Potassium 4.2 mmol/L (3.5-5.1); Sodium 144 mmol/L (136-145); Triglycerides 111 mg/dL (<=150); VLDL CHOLESTEROL 22.2 mg/dL
[2024-06-18 10:43] LABS: Basophils Absolute Auto 0.1 10^3/uL (0.0-0.1); Basophils Percent Auto 0.8 % (0.2-2.0); Eosinophils Absolute Auto 0.6 10^3/uL (0.0-0.7); Eosinophils Percent Auto 8.1 % (0.9-7.0); Hematocrit 45.4 % (36.0-48.0); Hemoglobin 14.8 g/dL (12.0-16.0); Immature Granulocytes Abs Auto 0.02 10^3/uL (0.00-0.03); Immature Granulocytes Pct Auto 0.3 % (0.0-0.5); Lymphocytes Absolute Auto 2.4 10^3/uL (1.2-3.8); Lymphocytes Percent Auto 30.1 % (20.5-60.0); Mean Corpuscular HGB Conc 32.6 g/dL (29.9-35.2); Mean Corpuscular Volume 92.1 fL (81.0-99.0); Mean Platelet Volume 9.6 fL (9.5-13.5); Monocytes Absolute Auto 0.5 10^3/uL (0.3-0.8); Monocytes Percent Auto 6.1 % (1.7-12.0); Neutrophils Absolute Auto 4.3 10^3/uL (1.4-6.5); Neutrophils Percent Auto 54.6 % (43.0-75.0); Platelet Count 262 10^3/uL (150-450); Red Blood Count 4.93 10^6/uL (4.20-5.40); Red Cell Distribution Width 13.2 % (11.0-15.0); White Blood Count 7.9 10^3/uL (4.0-11.0)
== END 2024-06-18 10:02 | disposition home or self-care (01) ==
LOC: LAB 10:01
PROVIDERS: PCP Family Medicine; Visit Provider Family Medicine
DX: Z79.899 Other long term (current) drug therapy (principal); E78.5 Hyperlipidemia, unspecified
CPT/HCPCS: 36415; 80048; 80061; 80076; 85025

== ENCOUNTER 2025-06-04 09:21 | Outpatient (OUT) | payer MEDICARE, SELFPAY ==
--- OUTSIDE RECORDS SUMMARY | 2025-06-04 09:27 | XMS_ITS | CCD ---
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 Name Role Phone TL ., DR FORD Attending Unavailable TL ., DR FORD Consulting Unavailable TL ., DR FORD Admitting Unavailable NADERER, DR JOE Ramirez Primary Care Unavailable AICHHOLZ, CARLITOS ALVAREZ Attending Unavailable AICHHOLZ, CARLITOS MORSEA Consulting Unavailable AICHHOLZ, CARLITOS ANTONIO Admitting Unavailable NADERER, DR JOE Ramirez Primary Care Unavailable Jazmín, Gigi Consulting Unavailable ZIEBER, DR EDMUNDO Soto Consulting Unavailable NADERER, DR OJE Ramirez Primary Care Unavailable NADERER, DR JOE Ramirez Admitting Unavailable NADERER, DR OJE Ramirez Attending Unavailable NADERER, DR JOE Ramirez Consulting Unavailable NADERER, DR JOE Ramirez Primary Care Unavailable NADERER, DR JOE Ramirez Admitting Unavailable NADERER, DR JOE Ramirez Attending Unavailable NADERER, DR JOE Ramirez Consulting Unavailable TL ., DR FORD Attending Unavailable TL ., DR FORD Admitting Unavailable NADERER, DR JOE Ramirez Primary Care Unavailable MAYO, DR HAROON Catalan Consulting Unavailable TL ., DR FORD Consulting Unavailable ZIEBER, DR EDMUNDO Soto Consulting Unavailable Naderer Joe TOSCANO Primary Care Provider Joe Foote MD Primary Care Provider Joe Foote MD Primary Care Provider Joe Foote MD Unavailable Joe Foote MD Primary Care Provider Joe Foote MD Primary Care Provider Joe Foote MD Unavailable JOE FOOTE Attending Unavailable TL, LOGAN Attending Unavailable NADERER, JOE Attending Unavailable Medications Current Medications Medication Drug Class(es) Dates Sig (Normalized) Sig (Original) [id number] 200 actuat albuterol 0.09 mg/actuat metered dose inhaler (20 sources) beta2-Adrenergic Agonist Start: 12-03-2024 take 2 puff(s) by inhalation every four hours for wheezing albuterol HFA 90 mcg/act inhaler Indications: Centrilobular emphysema (CMS/HCC) Inhale 2 puffs every 4 (four) hours if needed for wheezing or shortness of breath 18 g 3 12/03/2024 Active Start: 12-03-2024 take 2 puff(s) by in halation every four hours for wheezing albuterol HFA 90 mcg/act inhaler Indications: Centrilobular emphysema (CMS/HCC) Inhale 2 puffs every 4 (four) hours if needed for wheezing or shortness of breath 18 g 3 12/03/2024 Active Start: 09-09-2024 End: 12-03-2024 take 2 puff(s) by mouth every four hours as needed for wheezing albuterol HFA 90 mcg/act inhaler Indications: Centrilobular emphysema (HCC) INHALE 2 PUFFS BY MOUTH EVERY 4 HOURS NEEDED FOR WHEEZING FOR SHORTNESS OF BREATH 18 g 12/03/2024 Active Start: 10-25-2023 take 2 puff(s) by in halation every four hours for wheezing albuterol HFA [...] Active alendronic acid 70 mg oral tablet (20 sources) Bisphosphonate Start: 03-10-2025 alendronate (F osamax) 70 MG tablet Indications: Age-related osteoporosis without current pathological fracture TAKE 1 TABLET BY MOUTH EVERY 7 DAYS 8 tablet 03/10/2025 Active Start: 04-01-2024 End: 12-03-2024 take 1 tablet by mouth in the [...] next 30 min. 12 tablet 3 05/06/2024 12/03/2024 Discontinued Start: 12-05-2023 take 1 tablet by connie th every week alendronate (Fosamax) 70 MG tablet Indications: Age-related osteoporosis without current pathological fracture (CMS/HCC) Take 1 tablet by mouth once a week 8 tablet 12/05/2023 Active Calcium (14 sources) Phosphate Binder, Calcium calcium 200 MG table t Calcium Active calcium citrate 950 mg / cholecalciferol 250 unt oral tablet (20 sources) Vitamin D take 1 tablet by mouth every twenty-four hours as needed Calcium-Cholecalcifero l 200-6.25 MG-MCG tablet Take 1 tablet by mouth Daily as needed. Active cholecalciferol 0.05 mg oral capsule (14 sources) Vitamin D cholecalciferol (Vitamin D-3) 50 MCG (1999 UT) capsule Vitamin D Active ciprofloxacin 500 mg oral tablet (1 source) Quinolone Antimicrobial Start: 2024 End: 2024 take 1 tablet by mouth in the morning, then take 1 tablet by mouth at bedtime ciprofloxacin HCl (CIPRO) 500 mg tablet Indications: Acute cystitis without hematuria Take 1 tablet (500 mg total) by mouth in the morning and 1 tablet (500 mg total) before bedtime. Do all this for 7 days. 14 tablet 09/03/2024 09/10/2024 Active dicyclomine hydrochloride 20 mg oral tablet (10 sources) Anticholinergic Start: 2020 take 1 tablet by mouth every six hours as needed dicyclomine (BENTYL) 20 mg tablet Take 1 tablet (20 mg total) by mouth every 6 (six) hours as needed (abdominal pain). 90 tablet 3 08/17/2021 Active esomeprazole 20 mg delayed release oral capsule (20 sources) Proton Pump Inhibitor Start: 2022 End: 2023 take 1 capsule by mouth once daily before breakfast esomeprazole (NexIUM) 20 mg capsule Indications: Gastroesophageal reflux disease, unspecified whether esophagitis present Take 1 capsule (20 mg total) by mouth every morning before breakfast. 90 capsule 3 08/05/2024 Active melatonin 10 mg oral tablet (10 sources) take 1 tablet by mouth once daily as needed melatonin 10 mg tablet Take 10 mg by mouth nightly as needed. Active Multiple Vitamin (Multi Vitamin) tablet (14 sources) Multiple Vitamin (Multi Vitamin) tablet 1 (one) time each day at the same time. Active ondansetron 4 mg disintegrating oral tablet (10 sources) Serotonin-3 Receptor Antagonist Start: 2020 take 1 tablet by mouth every eight hours as needed for nausea and vomiting ondansetron ODT (ZOFRAN ODT) 4 mg disintegrating tablet Dissolve 1 tablet (4 mg total) on tongue every 8 (eight) hours as needed for nausea or vomiting. 20 tablet 12/17/2020 Active polyethylene glycol 3350 87993 mg powder for oral solution (5 sources) Osmotic Laxative take 17 g by mouth once daily polyethylene glycol, PEG, 3350 (Miralax) 17 g packet Take 17 g by mouth Daily Active predniSONE 10 mg oral tablet (9 sources) Start: 2024 predniSONE (DELTASONE) 10 mg tablet 40mg/d x 2 weeks, then taper by 5mg a week until off (35mg/d x 1wk, then 30mg x 1wk, then 25mg/d x 1wk, etc) 156 tablet 04/03/2025 Active Start: 03-18-2024 End: 04-03-2025 predniSONE (DELTASONE) 10 mg tablet 40mg/d x 2 weeks, then taper by 5mg a week until off (35mg/d x 1wk, then 30mg x 1wk, then 25mg/d x 1wk, etc) 156 tablet 04/03/2025 04/03/2025 Discontinued (Reorder) sulfamethoxazole 800 mg / trimethoprim 160 mg oral tablet (1 source) Dihydrofolate Reductase Inhibitor Antibacterial, Sulfonamide Antimicrobial Start: 03-06-2024 End: 03-11-2024 take 1 tablet by mouth once in the morning sulfamethoxazole-trimethoprim (BACTRIM DS) 800-160 mg per tablet Take 1 tablet by mouth in the morning and 1 tablet before bedtime. Do all this for 5 days. 10 tablet 03/06/2024 03/11/2024 Active 10 actuat tiotropium 0.0025 mg/actuat inhalation spray (11 sources) Anticholinergic Start: 04-12-2024 End: 12-03-2024 take 2 puff(s) by inhalation once daily tiotropium (Spiriva Respimat) 2.5 MCG/ACT inhaler Indications: Centrilobular emphysema (CMS/HCC) Inhale 2 puffs Daily 12 g 3 04/12/2024 12/03/2024 Discontinued 30 actuat umeclidinium 0.0625 mg/actuat / vilanterol 0.025 mg/actuat dry powder inhaler (5 sources) Anticholinergic, beta2-Adrenergic Agonist Start: 12-03-2024 take 1 puff(s) by inhalation once daily Umeclidinium-Vilanterol (Anoro Ellipta) 62.5-25 MCG/ACT aerosol powder Indications: Centrilobular emphysema (HCC) Inhale 1 puff Daily 60 each 5 12/03/2024 Active Problems Active Problems Problem Classification Problem Date Documented Date Episodic/Chronic Chronic obstructive pulmonary disease and bronchiectasis (20 sources) Centriacinar emphysema; Translations: [Centrilobular emphysema] Onset: 08-14-2023 Resolved: 12-01-2023 10-25-2023 Chronic Disorders of lipid metabolism (11 sources) Dyslipidemia; Translations: [Hyperlipidemia, unspecified] Onset: 06-04-2024 06-04-2024 Chronic Esophageal disorders (1 source) Gastroesophageal reflux disease; Translations: [Gastro-esophageal reflux disease without esophagitis] 08-05-2024 Chronic Menopausal disorders (4 sources) Atrophy of vagina; Translations: [Postmenopausal atrophic vaginitis] Onset: 05-12-2025 05-12-2025 Chronic Osteoporosis (19 sources) Age-related osteoporosis without current pathological fracture; Translations: [Senile osteoporosis] Onset: 05-14-2022 10-25-2023 Chronic Other screening for suspected conditions (not mental disorders or infectious disease) (12 sources) Encounter for screening mammogram for malignant neoplasm of breast; Translations: [Encounter for screening for malignant neoplasm of cervix] Onset: 04-18-2022 Episodic Residual codes; unclassified (2 sources) Postmenopausal state; Translations: [Asymptomatic menopausal state] 05-12-2025 Episodic Unclassified (3 sources) COUGH, UNSPECIFIED; Translations: [COUGH, UNSPECIFIED] Onset: 12-21-2022 Urinary tract infections (1 source) Acute cystitis; Translations: [Acute cystitis without hematuria] 09-03-2024 Episodic Past or Other Problems Problem Classification Problem Date Documented Date Episodic/Chronic Abdominal hernia (20 sources) Gastroesophageal reflux disease with hiatal hernia; Translations: [Diaphragmatic hernia without obstruction or gangrene] Onset: 10-25-2023 Resolved: 12-01-2023 10-25-2023 Episodic Immunizations and screening for infectious disease (1 source) Encounter for screening for human papillomavirus (HPV); Translations: [ENC SCREENING HUMAN PAPILLOMAVIRUS] Onset: 04-19-2022 Episodic Mood disorders (9 sources) Mood disorders Onset: 06-04-2024 06-04-2024 Other aftercare (11 sources) Long-term current use of drug therapy; Translations: [Other manager long term care (current) drug therapy] Onset: 06-04-2024 06-04-2024 Episodic Other lower respiratory disease (4 sources) Shortness of breath; Translations: [SHORTNESS OF BREATH] Onset: 06-08-2022 Episodic Other lower respiratory disease (1 source) Cough; Translations: [Cough, unspecified type] 10-26-2023 Episodic Other non-epithelial cancer of skin (14 sources) Basal cell carcinoma of lower back; Translations: [Basal cell carcinoma of skin of other part of trunk] Onset: 09-09-2019 10-25-2023 Episodic Residual codes; unclassified (1 source) Asymptomatic menopausal state; Translations: [ASYMPTOMATIC MENOPAUSAL STATE] Onset: 05-14-2022 Episodic Residual codes; unclassified (1 source) Family history of malignant neoplasm of other organs or systems; Translations: [FAM HX MALIG NEOPLASM OTH ORGN/SYS] Onset: 05-14-2022 Episodic Screening and history of mental health and substance abuse codes (9 sources) Ex-smoker; Translations: [Personal history of nicotine dependence] Onset: 06-04-2024 06-04-2024 Episodic Unclassified (1 source) COUGH, UNSPECIFIED; Translations: [COUGH, UNSPECIFIED] Onset: 12-01-2022 Results Test Name Value Interpretation Reference Range Facility ALL BASIC METABOLIC PANELon 06-18-2024 Anion gap [Moles/Vol] 14.3 mmol/L [facility] Calcium [Mass/Vol] 9.4 mg/dL 8.5 - 10. 1 mg/dL [facility] Chloride [Moles/Vol] 106 mmol/L 98 - 10 7 mmol/L [facility] CO2 [Moles/Vol] 27.9 mmol/L 21.0 - 32.0 mmol/L [facility] Creatinine [Mass/Vol] 0.86 mg/dL 0.55 - 1.02 mg/dL [facility] GFR/1.73 sq M.predicted CKD-EPI (S/P/Bld) [Vol rate/Area] >60 >=60 mL/min/1.73m 2 [facility] Glucose [Mass/Vol] 91 mg/dL 74 - 106 mg/dL [facility] Potassium [Moles/Vol] 4.2 mmol/L 3.5 - 5.1 mmol/L [facility] Sodium [Moles/Vol] 144 mmol/L 136 - 145 mmol/L [facility] TBH EGFR-NON AF ECUADOREAN >60 >=60 mL/min/1.73m 2 [facility] Urea nitrogen [Mass/Vol] 11 mg/dL 7.0 - 18.0 mg/dL [facility] Urea nitrogen/Creatinine [Mass ratio] 12.8 mg/mg [facility] ALL LIPID PROFILE (FASTING)o n 06-18-2024 CHOL HDL RATIO 3.5 [facility] Comment on above: 3.3 - 4.4 LOW RISK 4.4 - 7.1 AVERAGE RISK 7.1 - 11.0 MODERATE RISK >11.0 HIGH RISK Cholesterol [Mass/Vol] 211 mg/dL High NINF - 200 mg/dL [facility] Cholesterol in HDL [Mass/Vol] 61 mg/dL High 40 - 60 mg/dL [facility] Comment on above: > or =60 mg/dl - LOW CARDIOVASCULAR RISK <40 mg/dl - HIGH CARDIOVASCULAR RISK Interpretation and review of laboratory results Abnormal [facility] Magnesium [Mass/Vol] 128 mg/dL [facility] Comment on above: <100 mg/dl OPTIMAL 100-129 mg/dl NEAR OR ABOVE OPTIMAL 130-159 mg/dl BORDERLINE HIGH 160-189 mg/dl HIGH >190 mg/dl VERY HIGH Magnesium [Mass/Vol] 22.2 mg/dL [facility] Triglyceride [Mass/Vol] 111 mg/dL NINF - 150 mg/dL [facility] HMHP LIVER PANELon 4 Albumin [Mass/Vol] 3.6 g/dL 3.4 - 5.0 g/dL [facility] ALBUMIN GLOBULIN RATIO 1.1 [facility] ALP [Catalytic activity/Vol] 55 U/L 46 - 116 U/L [facility] ALT [Catalytic activity/Vol] 24 U/L 14 - 59 U/L [facility] AST [Catalytic activity/Vol] 17 U/L 15 - 37 U/L [facility] Bilirubin [Mass/Vol] 0.5 mg/dL 0.2 - 1 .0 mg/dL [facility] Bilirubin.indirect [Mass/Vol] 0.1 mg/dL 0.0 - 0.2 mg/dL [facility] Globulin (S) [Mass/Vol] 3.4 g/dL [facility] Protein [Mass/Vol] 7 g/dL 6.4 - 8.2 g/dL [facility] No Panel Informationon 06-18 [facility] IGP,APTIMA HPV,AGE GDLNon AGE GDLN ACOG TESTING Note . [facility] Comment on above: TESTS RESULT FLAG UN ITS REF RANGE LAB Clinician Provided Cytology Information Source.............Cervix;Endocervix No. of containers..01 ThinPrep Vial Age Algo ACOG Emma... Note 01 <21 or >65 or no age provided FLAG LEGEND: L-Low Normal,H-High Normal,LL-Alert Low,HH-Alert High <-Panic Low,>-Panic High,A-Abnormal,AA-Critical Abnormal Performed at: 01 [facility] [place] [address] Jennie Smiley MD, PAP IG (IMAGE GUIDED) Note . [facility] Comment on above: TESTS RESULT FLAG UN ITS REF RANGE LAB DIAGNOSIS: 02 NEGATIVE FOR INTRAEPITHELIAL LESION OR MALIGNANCY. CELLULAR CHANGES ASSOCIATED WITH ATROPHY ARE PRESENT. Specimen adequacy: 02 Satisfactory for evaluation. Endocervical and/or squamous metaplastic cells (endocervical component) are present. Performed by: 02 Gerri Johnston, Machine Packager (ASCP) . 02 Note: Note 02 The Pap smear is a screening test designed to aid in the detection of premalignant and malignant conditions of the uterine cervix. It is not a diagnostic procedure and should not be used as the sole means of detecting cervical cancer. Both false-positive and false-negative reports do occur. Test Methodology: Note 02 This liquid based ThinPrep(R) pap test was screened with the use of an image guided system. FLAG LEGEND: L-Low Normal,H-High Normal,LL-Alert Low,HH-Alert High <-Panic Low,>-Panic High,A-Abnormal,AA-Critical Abnormal Performed at: [address] [facility] [address] [id number] Jennie Smiley MD, Performed at: =G - [facility] [address] [id number] Print Binding Worker: Jennie Smiley MD, Phone: [phone] Performed at: - [facility] [address] [id number] Print Binding Worker: Jennie Smiley MD, Phone: [phone] [facility] Cervical or vaginal smear or scraping studyon 04-26-2023 [facility] XR CHEST 2 Von 12-01-2022 XR CHEST [...] GIGI CURRY Date: 2022-12-01 12:17 Normal [facility] XR CHEST 2 Von 06-08-2022 [...] by: EDMUNDO FALLON Date: 2022-06-08 12:38 Normal [facility] CBC AUTO DIFFon 05-24-2022 BASO # 0.0 103/ul Normal 0.0-0.1 [facility] Comment on above: Performed By: #### L IVER, LIPID, TSH, BMP #### [facility] [address] [place] [address] Dr. Minesh Wallace Basophils/100 WBC (Bld) 0.7 % Normal 0.2-2.0 [facility] Comment on above: Performed By: #### L IVER, LIPID, TSH, BMP #### [facility] [address] [place] [address] Dr. Minesh Wallace EO # 0.3 103/ul Normal 0.0-0.7 [facility] Comment on above: Performed By: #### L IVER, LIPID, TSH, BMP #### [facility] [address] [place] [address] Dr. Minesh Wallace Eosinophils/100 WBC (Bld) 4.2 % Normal 0.9-7.0 [facility] Comment on above: Performed By: #### L IVER, LIPID, TSH, BMP #### [facility] [address] [place] [address] Dr. Minesh Wallace Erythrocyte distribution width (RBC) [Ratio] 13.2 % Normal 11.0-15.0 [facility] Comment on above: Performed By: #### L IVER, LIPID, TSH, BMP #### [facility] [address] [place] [address] Dr. Minesh Wallace Hematocrit (Bld) [Volume fraction] 43.2 % Normal 36.0-48.0 [facility] Comment on above: Performed By: #### L IVER, LIPID, TSH, BMP #### [facility] [address] [place] [address] Dr. Minesh Wallace Hemoglobin (Bld) [Mass/Vol] 14.0 g/dL Normal 12.0-16.0 [facility] Comment on above: Performed By: #### L IVER, LIPID, TSH, BMP #### [facility] [address] [place] [address] Dr. Minesh Wallace IG # 0.01 10e3/ul Normal 0.00-0.03 [facility] Comment on above: Performed By: #### L IVER, LIPID, TSH, BMP #### [facility] [address] [place] [address] Dr. Minesh Wallace IG % 0.2 % Normal 0.0-0.5 [facility] Comment on above: Performed By: #### L IVER, LIPID, TSH, BMP #### [facility] [address] [place] [address] Dr. Minesh Wallace LYMPH # 2.4 103/ul Normal 1.2-3.8 [facility] Comment on above: Performed By: #### L IVER, LIPID, TSH, BMP #### [facility] [address] [place] [address] Dr. Minesh Wallace Lymphocytes/100 WBC (Bld) 39.7 % Normal 20.5-60.0 [facility] Comment on above: Performed By: #### L IVER, LIPID, TSH, BMP #### [facility] [address] [place] [address] Dr. Minesh Wallace MANUAL DIFF REQ NO Normal [facility] Comment on above: Performed By: #### L IVER, LIPID, TSH, BMP #### [facility] [address] [place] [address] Dr. Minesh Wallace MCH (RBC) [Entitic mass] 29.9 pg Normal 26.7-34.0 [facility] Comment on above: Performed By: #### L IVER, LIPID, TSH, BMP #### [facility] [address] [place] [address] Dr. Minesh Wallace MCHC (RBC) [Mass/Vol] 32.4 g/dL Normal 29.9-35.2 [facility] Comment on above: Performed By: #### L IVER, LIPID, TSH, BMP #### [facility] [address] [place] [address] Dr. Minesh Wallace MCV (RBC) [Entitic vol] 92.1 fL Normal 81.0-99.0 [facility] Comment on above: Performed By: #### L IVER, LIPID, TSH, BMP #### [facility] [address] [place] [address] Dr. Minesh Wallace MONO # 0.4 103/ul Normal 0.3-0.8 [facility] Comment on above: Performed By: #### L IVER, LIPID, TSH, BMP #### [facility] [address] [place] [address] Dr. Minesh Wallace Monocytes/100 WBC (Bld) 6.9 % Normal 1.7-12.0 [facility] Comment on above: Performed By: #### L IVER, LIPID, TSH, BMP #### [facility] [address] [place] [address] Dr. Minesh Wallace NEUT # 2.9 103/ul Normal 1.4-6.5 [facility] Comment on above: Performed By: #### L IVER, LIPID, TSH, BMP #### [facility] [address] [place] [address] Dr. Minesh Wallace Neutrophils/100 WBC (Bld) 48.3 % Normal 43.0-75.0 [facility] Comment on above: Performed By: #### L IVER, LIPID, TSH, BMP #### [facility] [address] [place] [address] Dr. Minesh Wallace Platelet mean volume (Bld) [Entitic vol] 10.2 fL Normal 9.5-13.5 [facility] Comment on above: Performed By: #### L IVER, LIPID, TSH, BMP #### [facility] [address] [place] [address] Dr. Minesh Wallace PLT 294 103/ul Normal 150-450 [facility] Comment on above: Performed By: #### L IVER, LIPID, TSH, BMP #### [facility] [address] [place] [address] Dr. Minesh Wallace RBC 4.69 106/ul Normal 4.20-5.40 [facility] Comment on above: Performed By: #### L IVER, LIPID, TSH, BMP #### [facility] [address] [place] [address] Dr. Minesh Wallace WBC 5.9 103/ul Normal 4.0-11.0 [facility] Comment on above: Performed By: #### L IVER, LIPID, TSH, BMP #### [facility] [address] [address] [address] Minesh Wallace GLYCOHEMOGLOBIN A1Con 2021 ADA RECOMMENDATION SEE BELOW Normal [facility] Comment on above: Result Comment: ADA RECOMMENDED LIMIT 4.0 - 6.0 ADA THERAPEUTIC TARGET < 7.0 ACTION SUGGESTED > 7.0 Performed By: #### A 1C #### [facility] [address] [address] [address] Minesh Wallace Glucose [Mass/Vol] 111 mg/dL Normal [facility] Comment on above: Performed By: #### A 1C #### [facility] [address] [address] [address] Minesh Wallace HbA1c (Bld) [Mass fraction] 5.5 % Normal 4.5-6.2 [facility] Comment on above: Performed By: #### A 1C #### [facility] [address] [place] [address] Dr. Mniesh Wallace LIPID PROFILEon 05-24-2022 CHOL-HDL RATIO NORM SEE BELOW Normal [facility] Comment on above: Result Comment: 3.3 - 4.4 LOW RISK 4.4 - 7.1 AVERAGE RISK 7.1 - 11.0 MODERATE RISK >11.0 HIGH RISK Performed By: #### L IVER, LIPID, TSH, BMP #### [facility] [address] [address] [address] Minesh Wallace Cholesterol [Mass/Vol] 189 mg/dL Normal <=200 [facility] Comment on above: Performed By: #### L IVER, LIPID, TSH, BMP #### [facility] [address] [address] [address] Minesh Wallace Cholesterol in HDL [Mass/Vol] 55 mg/dL Normal 40-60 [facility] Comment on above: Performed By: #### L IVER, LIPID, TSH, BMP #### [facility] [address] [address] [address] Minesh Wallace Cholesterol in LDL [Mass/Vol] 112.2 mg/dL Normal [facility] Comment on above: Performed By: #### L IVER, LIPID, TSH, BMP #### [facility] [address] [address] [address] Minesh Wallace Cholesterol.total/Ch olesterol in HDL [Mass ratio] 3.4 {ratio} Normal [facility] Comment on above: Performed By: #### L IVER, LIPID, TSH, BMP #### [facility] [address] [address] [address] Minesh Wallace HDL NORMAL > or = 60 mg/dl - LO W CARDIOVASCULAR RISK <40 mg/dl - HIGH CARDIOVASCULAR RISK Normal [facility] Comment on above: Performed By: #### L IVER, LIPID, TSH, BMP #### [facility] [address] [place] [address] Dr. Minesh Wallace LDL CALC NORMAL SEE BELOW Normal [facility] Comment on above: Result Comment: <100 mg/dl OPTIMAL 100 - 129 mg/dl NEAR OR ABOVE OPTIMAL 130 - 159 mg/dl BORDERLINE HIGH 160 - 189 mg/dl HIGH >190 mg/dl VERY HIGH Performed By: #### L IVER, LIPID, TSH, BMP #### [facility] [address] [place] [address] Dr. Minesh Wallace Triglyceride [Mass/Vol] 109 mg/dL Normal <=150 [facility] Comment on above: Performed By: #### L IVER, LIPID, TSH, BMP #### [facility] [address] [place] [address] Dr. Minesh Wallace VLDL CALC 21.8 mg/dL Normal [facility] Comment on above: Performed By: #### L IVER, LIPID, TSH, BMP #### [facility] [address] [place] [address] Dr. Minesh Wallace LIVER PROFILEon 05-24-2022 Albumin [Mass/Vol] 3.8 g/dL Normal 3.4-5.0 [facility] Comment on above: Performed By: #### L IVER, LIPID, TSH, BMP #### [facility] [address] [place] [address] Dr. Minesh Wallace Albumin/Globulin [Mass ratio] 1.1 {ratio} Normal [facility] Comment on above: Performed By: #### L IVER, LIPID, TSH, BMP #### [facility] [address] [address] [address] Minesh Wallace ALP [Catalytic activity/Vol] 86 U/L Normal 46-116 [facility] Comment on above: Performed By: #### L IVER, LIPID, TSH, BMP #### [facility] [address] [place] [address] Dr. Minesh Wallace ALT [Catalytic activity/Vol] 24 U/L Normal 14-59 [facility] Comment on above: Performed By: #### L IVER, LIPID, TSH, BMP #### [facility] [address] [place] [address] Dr. Minesh Wallace AST [Catalytic activity/Vol] 15 U/L Normal 15-37 [facility] Comment on above: Performed By: #### L IVER, LIPID, TSH, BMP #### [facility] [address] [place] [address] Dr. Minesh Wallace BILI, CONJUGATED 0.1 mg/dL Normal 0.0-0.2 [facility] Comment on above: Performed By: #### L IVER, LIPID, TSH, BMP #### [facility] [address] [place] [address] Dr. Minesh Wallace Bilirubin [Mass/Vol] 0.2 mg/dL Normal 0.2-1.0 [facility] Comment on above: Performed By: #### L IVER, LIPID, TSH, BMP #### [facility] [address] [place] [address] Dr. Minesh Wallace Globulin (S) [Mass/Vol] 3.4 g/dL Normal [facility] Comment on above: Performed By: #### L IVER, LIPID, TSH, BMP #### [facility] [address] [place] [address] Dr. Minesh Wallace Protein [Mass/Vol] 7.2 g/dL Normal 6.4-8.2 [facility] Comment on above: Performed By: #### L IVER, LIPID, TSH, BMP #### [facility] [address] [address] [address] Minesh Wallace PROF CHEM 8 (BAS METB)on Anion gap [Moles/Vol] 12.5 mmol/L Normal [facility] Comment on above: Performed By: #### L IVER, LIPID, TSH, BMP #### [facility] [address] [place] [address] Dr. Minesh Wallace Calcium [Mass/Vol] 9.3 mg/dL Normal 8.5-10.1 [facility] Comment on above: Performed By: #### L IVER, LIPID, TSH, BMP #### [facility] [address] [place] [address] Dr. Minesh Wallace Chloride [Moles/Vol] 104 mmol/L Normal 98-107 [facility] Comment on above: Performed By: #### L IVER, LIPID, TSH, BMP #### [facility] [address] [place] [address] Dr. Minesh Wallace CO2 [Moles/Vol] 28.9 mmol/L Normal 21.0-32.0 [facility] Comment on above: Performed By: #### L IVER, LIPID, TSH, BMP #### [facility] [address] [place] [address] Dr. Minesh Wallace Creatinine [Mass/Vol] 0.75 mg/dL Normal 0.55-1.02 [facility] Comment on above: Performed By: #### L IVER, LIPID, TSH, BMP #### [facility] [address] [place] [address] Dr. Minesh Wallace EGFR-AF ECUADOREAN >60 Normal >=60 [facility] Comment on above: Performed By: #### L IVER, LIPID, TSH, BMP #### [facility] [address] [place] [address] Dr. Minesh Wallace EGFR-NON AF ECUADOREAN >60 Normal >=60 [facility] Comment on above: Performed By: #### L IVER, LIPID, TSH, BMP #### [facility] [address] [place] [address] Dr. Minesh Wallace Glucose [Mass/Vol] 85 mg/dL Normal 74-106 [facility] Comment on above: Performed By: #### L IVER, LIPID, TSH, BMP #### [facility] [address] [place] [address] Dr. Minesh Wallace Potassium [Moles/Vol] 4.4 mmol/L Normal 3.5-5.1 [facility] Comment on above: Performed By: #### L IVER, LIPID, TSH, BMP #### [facility] [address] [place] [address] Dr. Minesh Wallace Sodium [Moles/Vol] 141 mmol/L Normal 136-145 [facility] Comment on above: Performed By: #### L IVER, LIPID, TSH, BMP #### [facility] [address] [place] [address] Dr. Minesh Wallace Urea nitrogen [Mass/Vol] 15.0 mg/dL Normal 7.0-18.0 [facility] Comment on above: Performed By: #### L IVER, LIPID, TSH, BMP #### [facility] [address] [place] [address] Dr. Minesh Wallace Urea nitrogen/Creatinine [Mass ratio] 20.0 mg/mg Normal [facility] Comment on above: Performed By: #### L IVER, LIPID, TSH, BMP #### [facility] [address] [place] [address] Dr. Minesh Wallace TSHon 05-24-2022 TSH 1.204 uIU/mL Normal 0.358-3.740 [facility] Comment on above: Performed By: #### L IVER, LIPID, TSH, BMP #### [facility] [address] [place] [address] Dr. Minesh Wallace MG MAMM SCREEN 3D GLADYS CADon 05-10-2022 MG MAMM SCREEN 3D GLADYS CAD Patient: DEANNA MCKEON Exam Date: 05/10/2022 : 1955 Gender:F Ordering : DR LOAGN BOOTHE . Admission #: [id number] Family : Order #: [id number] CLICK HERE TO VIEW EXAM RADIOLOGY REPORT [...] thyroid cancer at age 67. LOCATION: [facility] BREAST COMPOSITION: Heterogeneously dense,which may [...] Magallanes MD on 05/11/2022 at 07:58 Normal [facility] XR DEXA BONE DENSITYon 05-10 XR [...] by: EDMUNDO FALLON Date: 2022-05-10 15:58 Normal [facility] PAP ACOG PANEL 2: 30 to 65on 04-24-2022 . . Normal [facility] Comment on above: Result Comment: Perf ormed at: WB Performed By: #### [id number] #### [facility] [address] [place] [address] Dr. Minesh Wallace Age Gdln ACOG Testing 30-65 Normal [facility] Comment on above: Performed By: #### [id number] #### [facility] [address] [place] [address] Dr. Minesh Wallace DIAGNOSIS: Comment Normal [facility] Comment on above: Result Comment: NEGA TIVE FOR INTRAEPITHELIAL LESION OR MALIGNANCY. CELLULAR CHANGES ASSOCIATED WITH ATROPHY ARE PRESENT. THIS SPECIMEN WAS RESCREENED PART OF OUR TOOL AND FIXTURE REPAIRER PROGRAM. Performed at: WB Performed By: #### [id number] #### [facility] [address] [place] [address] Dr. Minesh Wallace HPV Aptima Negative Normal Negative [facility] Comment on above: Result Comment: This nucleic acid amplification test detects fourteen high-risk HPV types (16,18,31,33,35,39,45,51,52,56,58,59,66,68) without differentiation. Performed at: =G Performed By: #### [id number] #### [facility] [address] [place] [address] Dr. Minesh Wallace Methodology: Comment Normal [facility] Comment on above: Result Comment: This liquid based ThinPrep(R) pap test was screened with the use of an image guided system. Performed at: WB Performed By: #### [id number] #### [facility] [address] [place] [address] Dr. Minesh Wallace Note: Comment Normal [facility] Comment on above: Result Comment: The Pap smear is a screening test designed to aid in the detection of premalignant and malignant conditions of the uterine cervix. It is not a diagnostic procedure and should not be used as the sole means of detecting cervical cancer. Both false-positive and false-negative reports do occur. . Performed at: WB Performed By: #### [id number] #### [facility] [address] [place] [address] Dr. Minesh Wallace Performed by: Comment Normal [facility] Comment on above: Result Comment: Lorraine Cazares, Machine Packager Performed at: WB Performed By: #### [id number] #### [facility] [address] [place] [address] Dr. Minesh Wallace QC reviewed by: Comment Normal [facility] Comment on above: Result Comment: Arsalan Dean, Machine Packager Performed at: WB Performed By: #### [id number] #### [facility] [address] [address] [address] Minesh Wallace Specimen adequacy: Comment Normal [facility] Comment on above: Result Comment: Sati sfactory for evaluation. Endocervical and/or squamous metaplastic cells (endocervical component) are present. Performed at: WB Performed By: #### [id number] #### [facility] [address] [place], [place] [address] Dr. Minesh Wallace Urine Cultureon 02-19-2021 Bacteria identified Cx Nom (U) ORGANISM: Escherichia coli (O:ESCCOL) Bill[place] Count >100,000 Aerobic DUYEN Charge (NUC86) --- [...] RESISTANT TO ALL B-LACTAM DRUGS. PERFORMED BY: [facility] [address] [place] [address] PATHOLOGIST BUILDING [employer]STRUCTION FOREMAN ALYSSIA BURGOS M.D. [facility] Comment on above: Performed By: #### C UU #### [facility] [address] [id number] [facility] Vital Signs Date Time Vital Sign Value Performing Clinician Francisco burgess 05-12-2025 10:11-0400 Body mass index (BMI) [Ratio] 22.92 kg/m2 Logan Tl DO Work Phone: [facility] 05-12-2025 10:11-0400 Body weight 58.7 kg Logan Tl DO Work Phone: [facility] 05-12-2025 10:11-0400 Diastolic blood pressure 76 mm[Hg] Logan Tl DO Work Phone: [facility] 05-12-2025 10:11-0400 Systolic blood pressure 130 mm[Hg] Logan Tl DO Work Phone: [facility] 12-03-2024 10:40-0400 Body height 160 cm Joe Foote MD Work Phone: [facility] 12-03-2024 10:40-0400 Body mass index (BMI) [Ratio] 21.43 kg/m2 Joe Foote MD Work Phone: [facility] 12-03-2024 10:40-0400 Body temperature 98.01 [degF] Joe Foote MD Work Phone: [facility] 12-03-2024 10:40-0400 Body weight 54.88 kg Joe Foote MD Work Phone: [facility] 12-03-2024 10:40-0400 Diastolic blood pressure 72 mm[Hg] Joe Foote MD Work Phone: [facility] 12-03-2024 10:40-0400 Heart rate 120 /min Joe Foote MD Work Phone: [facility] 12-03-2024 10:40-0400 Respiratory rate 22 /min Joe Foote MD Work Phone: [facility] 12-03-2024 10:40-0400 SaO2% (BldA) [Mass fraction] 97 % Joe Foote MD Work Phone: [facility] 12-03-2024 10:40-0400 Systolic blood pressure 118 mm[Hg] Joe Foote MD Work Phone: [facility] 06-04-2024 11:11-0400 Body height 160 cm Joe Foote MD Work Phone: [facility] 06-04-2024 11:11-0400 Body mass index (BMI) [Ratio] 21.26 kg/m2 Joe Foote MD Work Phone: [facility] 06-04-2024 11:11-0400 Body temperature 96.01 [degF] Joe Foote MD Work Phone: [facility] 06-04-2024 11:11-0400 Body weight 54.43 kg Joe Foote MD Work Phone: [facility] 06-04-2024 11:11-0400 Diastolic blood pressure 64 mm[Hg] Joe Foote MD Work Phone: [facility] 06-04-2024 11:11-0400 Heart rate 105 /min Joe Foote MD Work Phone: [facility] 06-04-2024 11:11-0400 Respiratory rate 20 /min Joe Foote MD Work Phone: [facility] 06-04-2024 11:11-0400 SaO2% (BldA) [Mass fraction] 97 % Joe Foote MD Work Phone: [facility] 06-04-2024 11:11-0400 Systolic blood pressure 126 mm[Hg] Joe Foote MD Work Phone: [facility] 05-06-2024 11:27-0400 Body mass index (BMI) [Ratio] 21.08 kg/m2 Logan Boothe DO Work Phone: [facility] 05-06-2024 11:27-0400 Body weight 53.98 kg Logan Tl DO Work Phone: [facility] 05-06-2024 11:27-0400 Diastolic blood pressure 70 mm[Hg] Logan Tl DO Work Phone: [facility] 05-06-2024 11:27-0400 Systolic blood pressure 118 mm[Hg] Logan Tl DO Work Phone: [facility] Encounters Encounter Date Encounter Type Care Provider Facility Start: 05-12-2025 End: 05-12-2025 Bamboo flowsheet Logan Tl DO Work Phone: [facility] Start: 05-12-2025 End: 05-12-2025 Bamboo flowsheet Logan Tl DO Work Phone: [facility] Start: 05-12-2025 End: 05-12-2025 Patient encounter procedure Logan Tl DO Work Phone: [facility] Comment on above: Well woman exam with routine gynecological exam; Breast cancer screening by mammogram; Postmenopausal state; Vaginal atrophy Start: 05-12-2025 End: 05-12-2025 ambulatory LOGAN TL Not Available Start: 04-03-2025 End: 04-03-2025 Orders Only Brigitte MANZO Work Phone: [facility] Start: 12-03-2024 End: 12-03-2024 Bamboo flowsheet Joe Foote MD Work Phone: [facility] Start: 12-03-2024 End: 12-03-2024 Bamboo flowsheet Joe Foote MD Work Phone: [facility] Start: 12-03-2024 End: 12-03-2024 Office outpatient visit 15 minutes Joe Foote MD Work Phone: [facility] Comment on above: Centrilobular emphys ulissse (CMS/HCC) (Primary Dx); Hiatal hernia with GERD without esophagitis Start: 12-03-2024 End: 12-03-2024 ambulatory JOE FOOTE Not Available Start: 09-03-2024 End: 09-03-2024 Orders Only Brigitte Caballero COMMUNITY SUPPORT SPECIALIST-INFORMATION TECHNOLOGY DIRECTOR Work Phone: [facility] Comment on above: Acute cystitis witho ut hematuria (Primary Dx) Start: 08-05-2024 End: 08-05-2024 Orders Only Brigitte Caballero COMMUNITY SUPPORT SPECIALIST-INFORMATION TECHNOLOGY DIRECTOR Work Phone: [facility] Comment on above: Gastroesophageal ref lux disease, unspecified whether esophagitis present (Primary Dx) Start: 06-18-2024 End: 06-18-2024 Clinisync Result Encounter Joe Foote MD Work Phone: [facility] Unsolicited Start: 06-18-2024 End: 06-18-2024 Clinisync Result Encounter Joe Foote MD Work Phone: [facility]solicited Start: 06-04-2024 End: 06-04-2024 Bamboo flowsheet Joe Foote MD Work Phone: [facility] Start: 06-04-2024 End: 06-04-2024 Bamboo flowsheet Joe Foote MD Work Phone: [facility] Start: 06-04-2024 End: 06-04-2024 Patient encounter procedure Joe Foote MD Work Phone: [facility] Work Phone: Start: 06-04-2024 End: 06-04-2024 Postop follow up visit related to original px Joe Foote MD Work Phone: [facility] Comment on above: Medicare annual well ness visit, subsequent (Primary Dx); Dyslipidemia ([facility]); Encounter for long-term (current) use of medications Start: 06-04-2024 End: 06-04-2024 ambulatory JOE FOOTE Not Available Start: 05-17-2024 End: 05-17-2024 Orders Only Brigitte Caballero COMMUNITY SUPPORT SPECIALIST-INFORMATION TECHNOLOGY DIRECTOR Work Phone: [facility] Start: 05-06-2024 End: 05-06-2024 Bamboo flowsheet Logan Boothe DO Work Phone: [facility] Start: 05-06-2024 End: 05-10-2024 Clinisync Result Encounter Generic External Data Provider [facility] Unsolicited Start: 05-06-2024 End: 05-10-2024 Clinisync Result Encounter Generic External Data Provider [facility] Unsolicited Start: 05-06-2024 End: 05-06-2024 Patient encounter procedure Logan Boothe DO Work Phone: [facility] Start: 05-06-2024 End: 05-06-2024 Periodic preventive med est patient 65yrs& older Logan Boothe DO Work Phone: [facility] Comment on above: Well woman exam with routine gynecological exam; Breast cancer screening by mammogram; Osteoporosis, post-menopausal (CMS/HCC); Age-related osteoporosis without current pathological fracture (CMS/HCC) Start: 03-18-2024 End: 03-18-2024 Orders Only Brigitte Caballero COMMUNITY SUPPORT SPECIALIST-INFORMATION TECHNOLOGY DIRECTOR Work Phone: [facility] Start: 03-06-2024 End: 03-06-2024 Orders Only Brigitte Caballero COMMUNITY SUPPORT SPECIALIST-INFORMATION TECHNOLOGY DIRECTOR Work Phone: [facility] Start: 02-20-2024 End: 02-21-2024 Documentation procedure Brigitte Caballero COMMUNITY SUPPORT SPECIALIST-INFORMATION TECHNOLOGY DIRECTOR Work Phone: [facility] Start: 10-26-2023 Orders Only Brigitte Sanford se COMMUNITY SUPPORT SPECIALIST-INFORMATION TECHNOLOGY DIRECTOR Work Phone: [facility] Comment on above: Cough, unspecified t ype Start: 12-01-2022 End: 12-02-2022 ambulatory INFORMATION TECHNOLOGY DIRECTOR ANTONIO MARTINEZ Facility:[facility] Start: 06-08-2022 End: 06-09-[address] EDMUNDO FALLON Facility:[facility] Start: 05-26-2022 Encounter for genera l adult medical examination without abnormal findings DR JOE FOOTE [facility] Start: 05-24-2022 End: 05-25-[address] JOE FOOTE Facility:[facility] Start: 05-24-2022 End: 05-25-2022 Encounter for general adult medical examination without abnormal findings DR JOE FOOTE Facility:[facility] Start: 05-10-2022 End: 05-11-[address] LOGAN BOOTHE . Facility:[facility] Start: 04-18-2022 End: 04-18-[address] LOGAN BOOTHE . Facility:[facility] Procedures Date Procedure Procedure Detail Performing Clinician Start: 06-18-2024 ALL BASIC METABOLIC PANEL Joe Foote MD Work Phone: Start: 06-18-2024 ALL LIPID PROFILE (FASTING) Joe Foote MD Work Phone: Start: 06-18-2024 [facility] LIVER PANEL Joe jane MD Work Phone: Start: 05-24-2024 Mammography Joe cohen MD Work Phone: Start: 05-06-2024 IGP,APTIMA HPV,AGE GDLN Logan Tl DO Work Phone: Start: 05-31-2023 Mammography Logan Fazi o DO Work Phone: Start: 04-26-2023 Cytp cerv/vag auto t hin layer prep mnl screen Logan Tl DO Work Phone: Start: 12-18-2020 Colonoscopy Logan Fazi o DO Work Phone: Plan of Treatment Date Care Activity Detail Author Start: 12-18-2030 [facility] Start: 05-21-2026 End: 05-21-2026 Patient encounter procedure 05/21/2026 10:00 AM EDT Procedure Visit SIERRA MCKENNA [address] [place] [address] [place] [id number] Logan Boothe, [address] [place] [address] [facility] Start: 06-06-2025 End: 06-06-2025 Patient encounter procedure 06/06/2025 11:00 AM EDT Office Visit [facility] [address] [place] [address] Joe Foote MD [address] [place] [id number] [facility] Start: 06-04-2025 Medicare Annual Well ness (AWV) Medicare Annual Wellness (AWV) [facility] Start: 05-24-2025 Screening for malign ant neoplasm of breast Mammogram [facility] Start: 05-12-2025 End: 05-12-2026 DXA Skeletal system Views for bone density DEXA bone density Imaging Routine Postmenopausal state Expected: 05/12/2025 (Approximate), Expires: 05/12/2026 [facility] Comment on above: Expected: 05/12/2025 (Approximate), Expires: 05/12/2026 Start: 05-12-2025 End: 07-12-2026 MG Breast - bilateral Screening Bilateral screening mammogram Imaging Routine Breast cancer screening by mammogram Expected: 05/12/2025, Expires: 07/12/2026 [facility] Work Phone: Comment on above: Expected: 05/12/2025 , Expires: 07/12/2026 Start: 05-12-2025 End: 11-09-2025 US Pelvis US Pelvis w/ TV Imaging Routine Postmenopausal state Vaginal atrophy Expected: 05/12/2025, Expires: 11/09/2025 [facility] Comment on above: Expected: 05/12/2025 , Expires: 11/09/2025 Start: 05-12-2025 End: 05-12-2025 Patient encounter procedure [facility] Comment on above: Arrived Start: 05-06-2025 Medicare Annual Well ness (AWV) Medicare Annual Wellness (AWV) [facility] Start: 04-28-2025 Influenza vaccination [facility] Start: 12-03-2024 End: 12-03-2024 Patient encounter procedure [facility] Comment on above: Arrived Start: 06-04-2024 End: 06-04-2025 Basic metabolic 1998 panel - Serum or Plasma Basic metabolic panel Lab Routine Encounter for long-term (current) use of medications Expected: 06/04/2024 (Approximate), Expires: 06/04/2025 [facility] Work Phone: Comment on above: Expected: 06/04/2024 (Approximate), Expires: 06/04/2025 Start: 06-04-2024 End: 06-04-2025 CBC W Auto Differential panel - Blood CBC and differential Lab Routine Encounter for long-term (current) use of medications Expected: 06/04/2024 (Approximate), Expires: 06/04/2025 [facility] Comment on above: Expected: 06/04/2024 (Approximate), Expires: 06/04/2025 Start: 06-04-2024 End: 06-04-2025 Hepatic function 2000 panel - Serum or Plasma Hepatic function panel Lab Routine Encounter for long-term (current) use of medications Expected: 06/04/2024 (Approximate), Expires: 06/04/2025 [facility] Comment on above: Expected: 06/04/2024 (Approximate), Expires: 06/04/2025 Start: 06-04-2024 End: 06-04-2025 Lipid 1996 panel - Serum or Plasma Lipid panel Lab Routine Dyslipidemia (CMS/HCC) Expected: 06/04/2024 (Approximate), Expires: 06/04/2025 [facility] Comment on above: Expected: 06/04/2024 (Approximate), Expires: 06/04/2025 Start: 06-04-2024 End: 06-04-2024 Patient encounter procedure [facility] Comment on above: Arrived Start: 05-31-2024 Screening for malign ant neoplasm of breast Mammogram [facility] Start: 05-06-2024 End: 05-06-2025 DXA Skeletal system Views for bone density DEXA bone density Imaging Routine Osteoporosis, post-menopausal (CMS/HCC) Expected: 05/06/2024 (Approximate), Expires: 05/06/2025 [facility] Comment on above: Expected: 05/06/2024 (Approximate), Expires: 05/06/2025 Start: 05-06-2024 End: 07-06-2025 MG Breast - bilateral Screening Bilateral screening mammogram Imaging Routine Breast cancer screening by mammogram Expected: 05/06/2024 (Approximate), Expires: 07/06/2025 [facility] Work Phone: Comment on above: Expected: 05/06/2024 (Approximate), Expires: 07/06/2025 Start: 05-06-2024 End: 05-06-2024 Patient encounter procedure 05/06/2024 11:00 AM EDT Office Visit [facility] [address] [place] [address] Logan Boothe, DO [address] [place] [address] Arrived [facility] Comment on above: Arrived Start: 04-28-2024 Influenza vaccination N [facility] Start: 04-26-2024 Medicare Annual Well ness (AWV) Medicare Annual Wellness (AWV) [facility] Start: 04-28-2023 Influenza vaccination Influenza Vacc ine [facility] Start: 2022 Fall Risk Screening Fall Risk Screen ing [facility] Start: 12-21-2007 Administration of varicella zoster vaccine Zoster (Shingles) Vaccine (1 of 2) [facility] Start: 1976 DTaP,Tdap and Td Vaccines (1 - Tdap) DTaP,Tdap and Td Vaccines (1 - Tdap) [facility] Start: 12-21-1975 Adult BMI Screening Adult BMI Screen ing [facility] Start: 1969 Depression Screening Depression Scre ening [facility] Start: 1969 Tobacco Screening Tobacco Screening [facility] Start: 1957 Screening for malign ant neoplasm of colon [facility] THIN PREP TIS PAP AN D HR HPV DNA THIN PREP TIS PAP AND HR HPV DNA Pathology and Cytology Routine Well woman exam with routine gynecological exam Ordered: 05/06/2024 [facility] Comment on above: Ordered: 05/06/2024 Immunizations Immunization Date Immunization Notes Care Provider Fa cili 06-18-2024 influenza virus vacc ine, unspecified formulation Joe Foote MD Work Phone: [facility] 05-16-2023 Pneumococcal Conjuga te PCV 20 Logan Tl DO Work Phone: [facility] 08-12-2022 Seasonal, quadrivale nt, recombinant, injectable influenza vaccine, preservative free Logan Tl DO Work Phone: [facility] 08-12-2022 influenza virus vacc ine, unspecified formulation Logan Tl DO Work Phone: [facility] Payers Date Payer Category Payer Medicare [employer] MEDICARE ADVANTAGE [facility] MEDICARE ADVANTAGE [id number] 2022-Present [address] [place] [id number] 2022 Medicare (Managed Care) [facility] Member Subscriber Plan / Payer (Effective 2022-Present) Name: Deanna Mckeon Relation to Subscriber: Self Name: Deanna Mckeon Payer ID: Not on file Group ID: [id number] Type: Not on file Address: [address] [id number] 2017 [employer] [place] Managed Care - O [facility] [id number] 2017 Unknown SINDY MARROQUIN (PPO) [id number] 2017-Present [phone] [address] [place] [address] [id number] 1959 Unknown [id number] 1959 Unknown [id number] 1957 Unknown [id number] 1957 Unknown [id number] 1957 Unknown [id number] 1957 Unknown [id number] 1957 Unknown [id number] 1957 Unknown [id number] 1957 Unknown [id number] 1957 Unknown [id number] Social History Date Type Detail Facility Start: 08-06-2019 End: 10-25-2023 Tobacco smoking status WIIS Ex-smoker [facility] End: 08-06-2005 History of tobacco use Current smoker [facility] End: 08-06-2005 History of tobacco use Cigarette Smoker [facility] History of tobacco use Passive smoker [facility] Start: 05-06-2024 End: 05-12-2025 Alcoholic beverage intake Lifetime non-drinker (finding) [facility] Start: 11-24-2023 End: 06-04-2024 History of Social function [facility] Start: 11-24-2023 End: 06-04-2024 Social connection and isolation panel [facility] Do you belong to any clubs or organizations such as orthodoxy groups, unions, fraternal or athletic groups, or school groups? No [facility] Are you now , , , , never or living with a partner? [facility] How often to you hav e a drink containing alcohol? Never [facility] How many standard dr inks containing alcohol do you have on a typical day? Patient does not drink [facility] How hard is it for [...] Healthcare Start: 1955 Sex assigned at Female [facility] Start: 04-19-2023 Gender identity Identifies as female gender (finding) [facility] Start: 04-19-2023 Sexual orientation Heterosexual (finding) [facility] Start: 08-06-2019 Tobacco use and exposure Smokeless tobacco non-user [facility] Start: 12-18-2020 Alcoholic beverage intake Current drinker of alcohol (finding) [facility] Start: 08-06-2019 Alcohol Comment a couple times a year [facility] Start: 1955 Sex assigned at Not on file [facility] Start: 03-31-2015 Sex Female (finding) [facility] Clinical Notes 02-20-2024 to 05-12-2025 Lindsey Orellana LPN - 05/12/2025 10:00 AM Yang Foote MD - 12/03/2024 11:24 AM Yang Foote MD - 12/03/2024 11:24 AM Yang Foote MD - 12/03/2024 10:30 AM EDT Note Date & Type Note Facility 05-12-2025 History of Present illness Narrative Reason for Appointment: Patient ID: Deanna Mckeon is a 69 y.o. female who presents for Well Women Visit Patient presents today for Annual Exam. MEDICATIONS Current Outpatient Medications Medication Instructions albuterol HFA 90 mcg/act inhaler INHALE 2 PUFFS BY MOUTH EVERY 4 HOURS NEEDED FOR WHEEZING FOR SHORTNESS OF BREATH alendronate (FOSAMAX) 70 mg, Oral, Every 7 days calcium 200 MG tablet Calcium Calcium-Cholecalciferol 200-6.25 MG-MCG tablet 1 tablet, Daily PRN cholecalciferol (Vitamin D-3) 50 MCG (1999) capsule Vitamin D esomeprazole (NEXIUM) 20 mg, Daily before breakfast Multiple Vitamin (Multi Vitamin) tablet Every 24 hours polyethylene glycol (PEG) 3350 (MIRALAX) 17 g, Daily Umeclidinium-Vilanterol (Anoro Ellipta) 62.5-25 MCG/ACT aerosol powder 1 puff, Inhalation, Daily ALLERGIES No Known Allergies PROBLEMS Active Ambulatory Problems Diagnosis Date Noted Basal cell carcinoma (BCC) of lower back 09/09/2019 Age-related osteoporosis without current pathological fracture 10/25/2023 Centrilobular emphysema (HCC) 10/25/2023 Hiatal hernia with GERD without esophagitis 10/25/2023 Encounter for long-term (current) use of medications 06/04/2024 Dyslipidemia 06/04/2024 Medicare annual wellness visit, subsequent 06/04/2024 Former smoker 06/04/2024 Resolved Ambulatory Problems Diagnosis Date Noted COPD (chronic obstructive pulmonary disease) (HCC) 08/14/2023 Hiatal hernia 10/25/2023 Past Medical History: Diagnosis Date Acute UTI BMI 23.0-23.9, adult Breast cancer screening by mammogram 05/10/2022 Encounter for gynecological examination (general) (routine) without abnormal findings High risk for fracture due to osteoporosis by DEXA scan 05/10/2022 Post menopausal syndrome HISTORY PAST MEDICAL HISTORY SOCIAL HISTORY Past Medical History: Diagnosis Date Acute UTI BMI 23.0-23.9, adult Breast cancer screening by mammogram 05/10/2022 neg COPD (chronic obstructive pulmonary disease) ([facility]) Encounter for gynecological examination (general) (routine) without abnormal findings Hiatal hernia High risk for fracture due to osteoporosis by DEXA scan 05/10/2022 HIgh risk Osteoporsis Post menopausal syndrome Social History Tobacco Use Smoking status: Former Types: Cigarettes Passive exposure: Past Smokeless tobacco: Not on file Vaping Use Vaping status: Never Used Substance Use Topics Alcohol use: Never Drug use: Never FAMILY HISTORY Family History Problem Relation Name Age of Onset Cancer Mother Hypertension Father Heart disease Father Cancer Sibling SURGICAL HISTORY Past Surgical History: Procedure Laterality Date BREAST LUMPECTOMY Left SECTION, LOW TRANSVERSE x2 SKIN LESION EXCISION back REVIEW OF SYSTEMS Review of Systems: Review of Systems Constitutional: Negative. HENT: Negative. Eyes: Negative. Respiratory: Negative. Cardiovascular: Negative. Gastrointestinal: Negative. Genitourinary: Negative. Musculoskeletal: Negative. Skin: Negative. Neurological: Negative. All other systems reviewed and are negative. Hematological: Negative. Endocrine: Negative. Allergic/Immunologic: Negative. OBJECTIVE Objective: Physical Exam Constitutional: Appearance: Normal appearance. She is well-developed. Genitourinary: Vulva normal. Breasts: Breasts are soft. Right: Normal. Left: Normal. Cardiovascular: Rate and Rhythm: Normal rate and regular rhythm. Pulmonary: Effort: Pulmonary effort is normal. Breath sounds: Normal breath sounds. Abdominal: General: Bowel sounds are normal. There is no distension. Palpations: Abdomen is soft. Tenderness: There is no abdominal tenderness. There is no guarding or rebound. Musculoskeletal: General: No swelling. Normal range of motion. Right lower leg: No edema. Left lower leg: No edema. Neurological: Mental Status: She is alert and oriented to person, place, and time. Skin: General: Skin is warm and dry. Psychiatric: Mood and Affect: Mood normal. Behavior: Behavior normal. Vitals and nursing note reviewed. Exam conducted with a studio technician video operator present. Vitals: Estimated body mass index is 22.92 kg/m as calculated from the following: Height as of 12/03/24: 5' 3 . Weight as of this encounter: 129 lb 6.4 oz. BP: 130/76 No LMP recorded (lmp unknown). Patient is postmenopausal. ASSESSMENT & PLAN ICD-10-CM 1. Well woman exam with routine gynecological exam Z01.419 THIN PREP TIS PAP AND HR HPV DNA 2. Breast cancer screening by mammogram Z12.31 Bilateral screening mammogram Bilateral screening mammogram 3. Postmenopausal state Z78.0 DEXA bone density Annual: Patient presents today for an annual exam. Patient states she is doing well and has no complaints. Pap was NOT obtained due to Medicare insurance & will be performed next year. Patient given mammogram order to have scheduled/obtained. Patient is due for colonoscopy next year. Discussed if frequent UTI's to call office for possible hormone replacement. Vaginal fullness and will order ultrasound to have obtained. Discussed with patient this may just be stool, but wanted to check to rule any HEALTHCARE REPRESENTATIVE concerns. Orders Placed This Encounter Procedures Bilateral screening mammogram DEXA bone density Follow Up: Patient is to return in one year for annual unless needed otherwise. Documented by Lindsey Orellana LPN on behalf of: Logan Boothe DO documented in this encounter [facility] 12-03-2024 History of Present illness Narrative Associated Problem(s): Hiatal hernia with GERD without esophagitis No symptoms and continue nexium. Associated Problem(s): Centrilobular emphysema (CMS/HCC) Continued SOB and using albuterol daily but not limiting activity. Stop spiriva and try anoro. Continue albuterol PRN. Images from the original note were not included. Subjective Patient ID: Deanna Mckeon is a 68 y.o. female who presents for Follow-up (6 m). Follow up COPD and GERD. Patient stable today. Continues to have occasional symptoms but improved with inhalers. Taking spiriva daily and using albuterol PRN which helps.Less SOB and fatigue with exertion. Mild cough but no sputum. Able to stay active and exercise. Uses treadmill 3 days a week. Using albuterol at least once a day and sometimes several times a day. GERD controlled with nexium. Denies epigastric pain or burning and not waking up with symptoms. Review of Systems Respiratory: Negative for cough, [...] There is no guarding or rebound. Musculoskeletal: Cervical back: Neck supple. Right lower leg: No edema. Left lower leg: No edema. Neurological: Mental Status: She is alert. Assessment/Plan Problem List Items Addressed This Visit Centrilobular emphysema (CMS/HCC) - Primary Continued SOB and using albuterol daily but not limiting activity. Stop spiriva and try anoro. Continue albuterol PRN. Relevant Medications Umeclidinium-Vilanterol (Anoro Ellipta) 62.5-25 MCG/ACT aerosol powder albuterol HFA 90 mcg/act inhaler Hiatal hernia with GERD without esophagitis No symptoms and continue nexium. documented in this encounter [facility] 06-04-2024 History of Present illness Narrative Associated Problem(s): Medicare annual wellness [...] daily Aspirin therapy. documented in this encounter [facility] 05-06-2024 History of Present illness Narrative Reason for Appointment: Patient ID: Deanna Mckeon is a 68 y.o. female who presents for Gynecologic Exam Patient presents today for Annual Exam. MEDICATIONS Current Outpatient Medications Medication Instructions albuterol HFA 90 mcg/act inhaler 2 puffs, Inhalation, Every 4 hours PRN alendronate (FOSAMAX) 70 mg, Oral, Every 7 days calcium 200 MG tablet Calcium Calcium-Cholecalciferol 200-6.25 MG-MCG tablet 1 tablet, Oral, Daily PRN cholecalciferol (Vitamin D-3) 50 MCG (1999 [place]) capsule Vitamin D esomeprazole (NEXIUM) 20 mg, Oral, Daily before breakfast, Do not open capsule. Multiple Vitamin (Multi Vitamin) tablet Every 24 hours tiotropium (Spiriva Respimat) 2.5 MCG/ACT inhaler 2 puffs, Inhalation, Daily ALLERGIES No Known Allergies PROBLEMS Active Ambulatory Problems Diagnosis Date Noted Basal cell carcinoma (BCC) of lower back 09/09/2019 Age-related osteoporosis without current pathological fracture ([facility]) 10/25/2023 Centrilobular emphysema ([facility]) 10/25/2023 Hiatal hernia with GERD without esophagitis 10/25/2023 Resolved Ambulatory Problems Diagnosis Date Noted COPD (chronic obstructive pulmonary disease) ([facility]) 08/14/2023 Hiatal hernia 10/25/2023 Past Medical History: Diagnosis Date Acute UTI BMI 23.0-23.9, adult Breast cancer screening by mammogram 05/10/2022 Encounter for gynecological examination (general) (routine) without abnormal findings High risk for fracture due to osteoporosis by DEXA scan ([facility]) 05/10/2022 Post menopausal syndrome HISTORY PAST MEDICAL HISTORY SOCIAL HISTORY Past Medical History: Diagnosis Date Acute UTI BMI 23.0-23.9, adult Breast cancer screening by mammogram 05/10/2022 neg COPD (chronic obstructive pulmonary disease) ([facility]) Encounter for gynecological examination (general) (routine) without abnormal findings Hiatal hernia High risk for fracture due to osteoporosis by DEXA scan ([facility]) 05/10/2022 HIgh risk Osteoporsis Post menopausal syndrome Social History Tobacco Use Smoking status: Former Types: Cigarettes Passive exposure: Past Smokeless tobacco: Not on file Vaping Use Vaping status: Never Used Substance Use Topics Alcohol use: Never Drug use: Never FAMILY HISTORY Family History Problem Relation Name Age of Onset Cancer Mother Hypertension Father Heart disease Father Cancer Sibling SURGICAL HISTORY Past Surgical History: Procedure Laterality Date BREAST LUMPECTOMY Left SECTION, LOW TRANSVERSE x2 SKIN LESION EXCISION back REVIEW OF SYSTEMS Review of Systems: Review of Systems All other systems reviewed and are negative. OBJECTIVE Objective: Physical Exam Constitutional: Appearance: Normal appearance. She is well-developed. Genitourinary: Vulva normal. Breasts: Breasts are soft. Right: Normal. Left: Normal. Cardiovascular: Rate and Rhythm: Normal rate and regular rhythm. Pulmonary: Effort: Pulmonary effort is normal. Breath sounds: Normal breath sounds. Abdominal: General: Bowel sounds are normal. There is no distension. Palpations: Abdomen is soft. Tenderness: There is no abdominal tenderness. There is no guarding or rebound. Musculoskeletal: General: No swelling. Normal range of motion. Right lower leg: No edema. Left lower leg: No edema. Neurological: Mental Status: She is alert and oriented to person, place, and time. Skin: General: Skin is warm and dry. Psychiatric: Mood and Affect: Mood normal. Behavior: Behavior normal. Vitals and nursing note reviewed. Exam conducted with a studio technician video operator present. Vitals: Estimated body mass index is 21.08 kg/m as calculated from the following: Height as of 10/25/23: 5' 3 . Weight as of this encounter: 119 lb. BP: 118/70 No LMP recorded (lmp unknown). Patient is postmenopausal. ASSESSMENT & PLAN ICD-10-CM 1. Well woman exam with routine gynecological exam Z01.419 THIN PREP TIS PAP AND HR HPV DNA 2. Breast cancer screening by mammogram Z12.31 Bilateral screening mammogram Bilateral screening mammogram 3. Osteoporosis, post-menopausal ([facility]) M81.0 DEXA bone density Annual: Patient presents today for an annual exam. Patient states she is doing well and has no complaints. Pap was obtained without difficulty and patient given mammogram order to have scheduled/obtained. DEXA Scan is due next year and patient is up to date with colonoscopy. Orders Placed This Encounter Procedures Bilateral screening mammogram DEXA bone density Follow Up: Patient is to return in one year for annual unless needed otherwise. Documented by Lindsey Orellana LPN on behalf of: Logan Boothe DO documented in this encounter [facility] 02-20-2024 History of Present illness Narrative Med refill JOVANY Caballero 02/21/24911 documented in this encounter [facility] Evaluation note Diagnosis Medicare annual wellness visit, subsequent- Primary Dyslipidemia (CMS/HCC) Other and unspecified hyperlipidemia Encounter for long-term (current) use of medications Encounter for long-term (current) use of other medications documented in this encounter [facility] HealthcareEvaluation note* Diagnosis Well woman exam with routine gynecological exam Routine gynecological examination Breast cancer screening by mammogram Osteoporosis, post-menopausal (CMS/HCC) Senile osteoporosis Age-related osteoporosis without current pathological fracture (CMS/HCC) documented in this encounter [facility]Evaluation note* Diagnosis Acute cystitis without hematuria- Primary [facility] Cough, unspecified type [facility] Diagnosis Gastroesophageal reflux disease, unspecified whether esophagitis present- Primary [facility] Diagnosis Hiatal hernia with GERD without esophagitis- Primary Centrilobular emphysema (CMS/HCC) Centrilobular emphysema (CMS/HCC)- Primary Hiatal hernia with GERD without esophagitis Medicare annual wellness visit, subsequent- Primary Dyslipidemia (CMS/HCC) Other and unspecified hyperlipidemia Encounter for long-term (current) use of medications Encounter for long-term (current) use of other medications Centrilobular emphysema (CMS/HCC)- Primary Hiatal hernia with GERD without esophagitis documented in this encounter [facility]* Diagnosis Hiatal hernia with GERD without esophagitis- Primary Centrilobular emphysema (HCC) Centrilobular emphysema (HCC)- Primary Hiatal hernia with GERD without esophagitis Medicare annual wellness visit, subsequent- Primary Dyslipidemia Other and unspecified hyperlipidemia Encounter for long-term (current) use of medications Encounter for long-term (current) use of other medications Centrilobular emphysema (HCC)- Primary Hiatal hernia with GERD without esophagitis Well woman exam with routine gynecological exam Routine gynecological examination Breast cancer screening by mammogram Postmenopausal state Asymptomatic postmenopausal status (age-related) (natural) Vaginal atrophy Postmenopausal atrophic vaginitis documented in this encounter [facility]InstructionsNot on filedocumented in this encounterProMedime Health SystemInstructionsNot on filedocumented in this encounterProUc [facility] [place] HospitalWhatser SystemInstructionsNot on filedocumented in this encounterProUc [facility] [place] HospitalWhatser SystemInstructionsNot on filedocumented in this encounterProEncompass Health [facility] Femas[facility] System InstructionsNot on filedocumented in this encounterK[facility] Summary Purpose Family History No Family History Records FoundNo Family History Records FoundNo Family History Records Found Advance Directives No Advanced Directives Records FoundNo Advanced Directives Records FoundNo Advanced Directives Records Found Additional Source Comments INFORMATION SOURCE (unrecogn ized section and content) DATE CREATED AUTHOR 03/03/2021 [facility] DATE CREATED AUTHOR AUTHOR'S ORGANIZ ATION 12/23/2022 [facility] DATE CREATED AUTHOR AUTHOR'S ORGANIZ ATION 05/13/2025 [facility] Specialists EPIC Care Teams (unrecognized sec tion and content) [employer] Relationship Specialty Start Date End Date Joe Foote MD [address] [place] [address] PCP - General Family Medicine 10/25/23 [employer] Relationship Specialty Start Date End Date Joe Foote MD [address] [place] [address] PCP - General Family Medicine 10/25/23 [employer] Relationship Specialty Start Date End Date Joe Foote MD [address] [place] [address] PCP - General Family Medicine 10/25/23 [employer] Relationship Specialty Start Date End Date Joe Foote MD [address] [place] [address] PCP - General Family Medicine 10/25/23 [employer] Mill Tender Relationship Specialty Start Date End Date Joe Foote MD [address] [place] [address] PCP - General Family Medicine 10/25/23 [employer] T[employer] Relationship Specialty Start Date End Date Joe Foote MD [address] [place] [address] PCP - General Family Medicine 10/25/23 [employer] Mill Tender Relationship Specialty Start Date End Date Joe Foote MD PCP - General Family Medicine 08/06/19 [employer] Relationship Specialty Start Date End Date Joe Foote MD [address] [place] [address] PCP - General Family Medicine 08/06/19 [employer] Mill T[employer] Relationship Specialty Start Date End Date Joe Foote MD [address] [place] [address] PCP - General Family Medicine 08/06/19 [employer] T[employer] Relationship Specialty Start Date End Date Joe Foote MD [address] [place] [address] PCP - General Family Medicine 08/06/19 [employer] Relationship Specialty Start Date End Date Joe Foote MD PCP - General Family Medicine 08/06/19 [employer] Relationship Specialty Start Date End Date Joe Foote MD PCP - General Family Medicine 08/06/19 [employer] Relationship Specialty Start Date End Date Joe Foote MD [address] [place] [address] PCP - General Family Medicine 10/25/23 Joe Foote MD [address] [place] [address] PCP - Sindy PINEDA 08/28/24 [employer] Relationship Specialty Start Date End Date Joe Foote MD [address] [place] [address] PCP - General Family Medicine 10/25/23 Joe Foote MD [address] [place] [address] PCP - Sindy PINEDA 08/28/24 [employer] Mill Tender Relationship Specialty Start Date End Date Joe Foote MD PCP - General Family Medicine 08/06/19 [employer] Relationship Specialty Start Date End Date Joe Foote MD PCP - General Family Medicine 08/06/19 [employer] Relationship Specialty Start Date End Date Joe Foote MD PCP - General Family Medicine 10/25/23 Joe Foote MD [address] [place] [address] PCP Danitza Callahan MA 08/28/24 [employer] Relationship Specialty Start Date End Date Joe Foote MD PCP - General Family Medicine 10/25/23 Joe Foote MD [address] [place] [address] PCP Danitza Callahan MA 08/28/24 Reason for Visit (unrecogniz ed section and content) Reason Comments Medicare Annual Wellness Visit Subsequen t wellness Reason Comments Gynecologic Exam Reason Comments Follow-up 6 m Reason Comments Well Women Visit FOR RECORDS PERTAINING TO PATIENTS WHO ARE [...] BE BASED ON THE PRIMARY CLINICAL RECORDS. [facility] [employer] provides no warranty or guarantee of the accuracy or completeness of information in this document.
--- NOTE | 2025-06-04 09:31 | US_ITS ---
The [address] [address] Patient Name: NAWFA MCKEON MRN: [id number] date: 1955 Sex: F Assigned Patient Location: Current Patient Location: Accession/Order Number: [id number] Exam Date: 06/04/2025 09:32 Report Date: 06/04/2025 10:14 At the request of: LOGAN SQUIRES DO Procedure: US pelvis w/ transvaginal ULTRASOUND PELVIS WITH TRANSVAGINAL COMPARISON: None CLINICAL DATA: Postmenopausal patient with pelvic fullness and vaginal atrophy. Real-time ultrasound evaluation the pelvis was performed utilizing both a transabdominal and transvaginal approach. TRANSABDOMINAL: The urinary bladder is only partially distended. Estimated uterine size is approximately 6.4 x 2.9 x 3.4 cm. No focal myometrial abnormalities are identified. The endometrial lining is estimated at 3 mm. Neither ovary was identified. TRANSVAGINAL: Transvaginal imaging was performed to better evaluate the uterus and adnexa. By this approach, myometrial echogenicity is slightly heterogeneous however no focal abnormalities are identified. The endometrial lining is approximately 3 mm in thickness. Neither ovary is identified. There are no cystic or solid adnexal masses. No free fluid is seen. US/US pelvis w/ transvaginal IMPRESSION: NONVISUALIZATION OF THE OVARIES. NO OTHER SIGNIFICANT FINDINGS. Impression dictated by: Spring Maya M.D. 06/04/2025 10:14 AM Dictation Location: [place] [address] Electronically authenticated by: [id number] Y Date: 06/04/2025 10:14
--- NOTE | 2025-06-04 09:31 | MM_ITS ---
Patient Name: NAWAF MCKEON MR#: [id number] : 1955 Exam Date: 06/04/2025 Ordering Doctor: DR LOGAN SQUIRES . RADIOLOGY REPORT PROCEDURE: MM TOMOSYNTHESIS SCREENING BI COMPARISON: MM TOMOSYNTHESIS SCREENING BI, 05/24/2024. MM TOMOSYNTHESIS SCREENING BI, 05/11/2023. MG MAMM SCREEN 3D GLADYS CAD, 05/10/2022. MG MAMM SCREEN GLADYS W CAD, 08/17/2010. INDICATIONS: Screening Calculator Name NCI Breast Cancer Risk Assessment Tool 5 Year Breast Cancer Risk 2.30% Lifetime Breast Cancer Risk 7.90% Personal Breast Cancer No Personal Ovarian Cancer No Treatments None Family Cancers Mother with thyroid cancer at age 65. LOCATION: The [facility] BREAST COMPOSITION: The breasts are heterogeneously dense, which may obscure small masses. FINDINGS: RIGHT BREAST: No significant suspicious finding. Benign-appearing calcifications are present. LEFT BREAST: No significant suspicious finding. Benign-appearing calcifications are present. DIAGNOSTIC CATEGORY 2--BENIGN FINDING. NO CHANGE FROM COMPARISON. RECOMMENDATIONS: ROUTINE MAMMOGRAM AND CLINICAL EVALUATION IN 12 MONTHS. Dictated by: Jack Pino MD on 06/04/2025 at 15:42 Approved by: Jack Pino MD on 06/04/2025 at 15:46
== END 2025-06-04 09:22 | disposition home or self-care (01) ==
LOC: US 09:21
PROVIDERS: PCP Family Medicine; Visit Provider Obstetrics & Gynecology
DX: Z12.31 Encounter for screening mammogram for malignant neoplasm of breast (principal); Z78.0 Asymptomatic menopausal state; N95.2 Postmenopausal atrophic vaginitis; Z80.8 Family history of malignant neoplasm of other organs or systems; M85.88 Other specified disorders of bone density and structure, other site
CPT/HCPCS: 76830; 76856; 77063; 77067; 77080